=== PATIENT | male | born 1940 | race American Indian/Alaskan Native ===

== ENCOUNTER 2019-03-30 19:49 | Inpatient (IN) | payer MEDICARE ==
[2019-03-30 21:09] LABS: Basophils % (Auto) 0.1 % (0.0-1.8); Hematocrit 46.7 % (35.5-45.6); Hemoglobin 14.6 gm/dl (11.8-15.2); Lymphocytes # (Auto) 1.5 K/mm3 (1.2-5.4); Lymphocytes % (Auto) 9.2 % (13.4-35.0); Mean Corpuscular HGB Conc 31 % (32-34); Mean Corpuscular Volume 93 fl (84-94); Monocytes # (Auto) 0.8 K/mm3 (0.0-0.8); Monocytes % (Auto) 5.1 % (0.0-7.3); Platelet Count 203 K/mm3 (140-440); Red Blood Count 5.04 M/mm3 (3.65-5.03); Red Cell Distribution Width 15.4 % (13.2-15.2)
--- NOTE | 2019-03-30 21:23 | Emergency Department Report ---
HPI - General Chief Complaint: Hyperglycemia Time Seen by Provider: 03/30/19 21:06 - HPI HPI: Room 26 The patient is a 78-year-old male presenting with chief complaint altered mental status. He states the patient's last known well time was approximately 3 days ago. He states over the past 2-3 days the patient has been behaving more more lethargic and weak. This afternoon at 13:00, states the patient was profoundly weak and could not get out of bed. The patient denies pain of any type states he has been thirsty and urinating frequently lately. Patient had a history of prediabetes. Patient denies chest pain abdominal pain or shortness of breath Location: Mental state Duration: [See above] Quality: [See above] Severity: [See above] Modifying factors: [see above] Context: [see above] Mode of transportation: [not driving] ED Past Medical Hx - Past Medical History Previous Medical History?: Yes Hx CVA: Yes Hx Heart Attack/AMI: Yes (2 stents placed) Hx Diabetes: Yes (pre DM) Additional medical history: BPH - Surgical History Past Surgical History?: Yes Hx Coronary Stent: Yes (X2) - Family History Family history: no significant - Social History Smoking Status: Never Smoker Substance Use Type: None - Medications Home Medications: Home Medications Medication Instructions Recorded Confirmed Last Taken Type Cholecalciferol Vit D3 [Vitamin D3 1 dose PO DAILY 03/30/19 03/30/19 Unknown History 400 UNIT TAB] Cyanocobalamin (Vitamin B-12) 2,500 mcg PO DAILY 03/30/19 03/30/19 Unknown History [Vitamin B12] Mv-Mins/Folic Acid/Guarana/Caf 1 each PO DAILY 03/30/19 03/30/19 Unknown History [One Daily Tablet] ED Review of Systems ROS: Stated complaint: HYPERGLYCEMIA Other details as noted in HPI Constitutional: malaise Eyes: denies: eye pain ENT: denies: throat pain Respiratory: denies: shortness of breath Cardiovascular: denies: chest pain Endocrine: increased thirst, increased urine Gastrointestinal: denies: abdominal pain, nausea, vomiting Genitourinary: denies: dysuria Musculoskeletal: back pain Neurological: denies: headache Physical Exam - Physical Exam Vital Signs: Vital Signs 03/30/19 03/30/19 20:10 20:18 Temperature 99 F Pulse Rate 94 H 96 H Respiratory 12 16 Rate Blood Pressure 166/90 O2 Sat by Pulse 100 Oximetry Physical Exam: GENERAL: The patient is well-developed well-nourished male lying on stretcher appearing lethargic but responsive to questions. [] HEENT: Normocephalic. Atraumatic. Extraocular motions are intact. Patient has dry mucous membranes. NECK: Supple. Trachea midline CHEST/LUNGS: Clear to auscultation. There is no respiratory distress noted. HEART/CARDIOVASCULAR: Regular. There is no tachycardia. There is no gallop rub or murmur. ABDOMEN: Abdomen is soft, nontender. Patient has normal bowel sounds. There is no abdominal distention. SKIN: There is no rash. There is no edema. There is no diaphoresis. NEURO: The patient is lethargic in appearance but answers questions appropriately. The patient is cooperative. The patient has no focal neurologic deficits. The patient has normal speech. Cranial nerves II through XII gr ossly intact, no drift MUSCULOSKELETAL: There is no evidence of acute injury. ED Course Vital Signs 03/30/19 03/30/19 20:10 20:18 Temperature 99 F Pulse Rate 94 H 96 H Respiratory 12 16 Rate Blood Pressure 166/90 O2 Sat by Pulse 100 Oximetry ED Medical Decision Making - Lab Data Result diagrams: 03/30/19 20:43 03/30/19 20:43 Laboratory Tests 03/30/19 03/30/19 03/30/19 20:43 20:43 21:17 WBC 15.7 H RBC 5.04 H Hgb 14.6 Hct 46.7 H MCV 93 MCH 29 MCHC 31 L RDW 15.4 H Plt Count 203 Lymph % (Auto) 9.2 L Marion % (Auto) 5.1 Eos % (Auto) 0.0 Baso % (Auto) 0.1 Lymph # 1.5 Marion # 0.8 Eos # 0.0 Baso # 0.0 Seg Neutrophils % 85.6 H Seg Neutrophils # 13.4 H VBG pH 7.313 L Sodium 149 H Potassium 5.2 H Chloride 108.1 H Carbon Dioxide 24 Anion Gap 22 BUN 53 H Creatinine 1.8 H Estimated GFR 44 BUN/Creatinine Ratio 29 Glucose 774 H* Calcium 10.4 H Total Bilirubin 0.30 AST 13 ALT 9 Alkaline Phosphatase 137 H Total Protein 7.5 Albumin 4.0 Albumin/Globulin Ratio 1.1 - EKG Data -: EKG Interpreted by Me EKG shows normal: sinus rhythm Rate: normal - EKG Data When compared to previous EKG there are: previous EKG unavailable Interpretation: other (no ischemic changes seen) - Differential Diagnosis DKA, diabetes, dehydration, hyperglycemia, hypothyroidism Critical care attestation.: If time is entered above; I have spent that time in minutes in the direct care of this critically ill patient, excluding procedure time. ED Disposition Clinical Impression: DKA (diabetic ketoacidoses) Disposition: OP ADMIT IP TO THIS HOSP Is pt being admited?: Yes Does the pt Need Aspirin: Yes Condition: Serious
[2019-03-30 21:24] LABS: Calcium 10.4 mg/dL (8.4-10.2)
[2019-03-30] MEDS ORDERED: D50W (25GM) Syringe IV PRN ×2 (21:48→22:27)
[2019-03-30 22:01] LABS: Creatine Kinase MB 8.7 ng/mL (0.0-4.0)
[2019-03-30 22:12] LABS: Free T4 (Free Thyroxine) 1.23 ng/dL (0.76-1.46)
[2019-03-30 22:18] LABS: Chol/HDL Ratio 3.73 %
[2019-03-30] MEDS: HumuLIN R 100 UNITS in NACL 0.9% 99 ML IV SCH (22:21)
[2019-03-30] MEDS ORDERED: NACL 0.9% 1000 ML 2,000 ML IV ONE (22:26)
--- NOTE | 2019-03-30 22:28 | History and Physical Report ---
History of Present Illness Date of examination: 03/30/19 History of present illness: 78-year-old man with a history of coronary artery disease, diabetes, BPH, CVA with left arm weakness is brought to the emergency room by the daughter because his he's been lethargic and complains of thirst. He has not been on any medic ations for 4 years, daughter state that is helped improved once he started living with her. 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 Review of system is unobtainable PAST MEDICAL HISTORY:coronary artery disease, diabetes, BPH, CVA with left arm weakness PAST SURGICAL HISTORY: None SOCIAL HISTORY: Denies alcohol, drugs, tobacco FAMILY HISTORY: Hypertension Medications and Allergies Allergies Allergy/AdvReac Type Severity Reaction Status Date / Time No Known Allergies Allergy Verified 03/30/19 21:52 Home Medications Medication Instructions Recorded Confirmed Last Taken Type Cholecalciferol Vit D3 [Vitamin D3 1 dose PO DAILY 03/30/19 03/30/19 Unknown History 400 UNIT TAB] Cyanocobalamin (Vitamin B-12) 2,500 mcg PO DAILY 03/30/19 03/30/19 Unknown History [Vitamin B12] Mv-Mins/Folic Acid/Guarana/Caf 1 each PO DAILY 03/30/19 03/30/19 Unknown History [One Daily Tablet] Active Meds: Active Medications Dextrose (D50w (25gm) Syringe) 0 ml IV ONCE PRN PRN Reason: Hypoglycemia Enoxaparin Sodium (Lovenox) 30 mg SUB-Q QDAY SAVANNAH Insulin Human Regular 100 (units/ Sodium Chloride) 100 mls @ 7 mls/hr IV TITR SAVANNAH; Protocol Last Admin: 03/30/19 22:21 Dose: 8 units/hr, 8 mls/hr Documented by: Sodium Chloride (Nacl 0.9% 1000 Ml) 2,000 mls @ 999 mls/hr IV ONCE ONE Stop: 03/31/19 00:26 Sodium Chloride (Nacl 0.9% 1000 Ml) 1,000 mls @ 150 mls/hr IV DIRECT SAVANNAH Dextrose/Sodium Chloride (D5/0.45ns) 1,000 mls @ 150 mls/hr IV DIRECT SAVANNAH Exam - Physical Exam Narrative exam: General Apperance: The patient lying in bed, breathing comfortable HEENT: Normocephalic, atraumatic. Pupils equally round and reactive to light, EOMI, no sclericterus or JVD or thyromegaly or nodule. , no carotid bruit, mucous membranes moist, no exudate or erythema Heart: S1-S2, regular is rhythm Lungs: Clear to auscultation bilaterally, breathing comfortable Abdomen: Positive bowel sounds, soft, nontender, nondistended, no organomegaly Extremities: No edema cyanosis clubbing Skin: no rash, nodule, warm and dry Neuro:difficult to assess - Constitutional Vitals: Temp Pulse Resp BP Pulse Ox 99 F 92 H 13 178/87 100 03/30/19 20:18 03/30/19 21:45 03/30/19 21:45 03/30/19 21:45 03/30/19 21:45 Results - Labs CBC & Chem 7: 03/30/19 20:43 03/31/19 00:30 Labs: Abnormal lab results 03/30/19 03/30/19 03/30/19 Range/Units 20:43 20:43 21:17 WBC 15.7 H (4.5-11.0) K/mm3 RBC 5.04 H (3.65-5.03) M/mm3 Hct 46.7 H (35.5-45.6) % MCHC 31 L (32-34) % RDW 15.4 H (13.2-15.2) % Lymph % (Auto) 9.2 L (13.4-35.0) % Seg Neutrophils % 85.6 H (40.0-70.0) % Seg Neutrophils # 13.4 H (1.8-7.7) K/mm3 VBG pH 7.313 L (7.320-7.420) Sodium 149 H (137-145) mmol/L Potassium 5.2 H (3.6-5.0) mmol/L Chloride 108.1 H (98-107) mmol/L BUN 53 H (9-20) mg/dL Creatinine 1.8 H (0.8-1.5) mg/dL Glucose 774 H* (75-100) mg/dL Calcium 10.4 H (8.4-10.2) mg/dL Magnesium (1.7-2.3) mg/dL Alkaline Phosphatase 137 H (35-129) units/L CK-MB (CK-2) (0.0-4.0) ng/mL CK-MB (CK-2) Rel Index (0-4) Troponin T (0.00-0.029) ng/mL Triglycerides (2-149) mg/dL Cholesterol (50-199) mg/dL LDL Cholesterol Direct (50-130) mg/dL HDL Cholesterol (40-59) mg/dL 03/30/19 03/30/19 Range/Units 21:23 21:23 WBC (4.5-11.0) K/mm3 RBC (3.65-5.03) M/mm3 Hct (35.5-45.6) % MCHC (32-34) % RDW (13.2-15.2) % Lymph % (Auto) (13.4-35.0) % Seg Neutrophils % (40.0-70.0) % Seg Neutrophils # (1.8-7.7) K/mm3 VBG pH (7.320-7.420) Sodium (137-145) mmol/L Potassium (3.6-5.0) mmol/L Chloride (98-107) mmol/L BUN (9-20) mg/dL Creatinine (0.8-1.5) mg/dL Glucose (75-100) mg/dL Calcium (8.4-10.2) mg/dL Magnesium 2.90 H (1.7-2.3) mg/dL Alkaline Phosphatase (35-129) units/L CK-MB (CK-2) 8.7 H (0.0-4.0) ng/mL CK-MB (CK-2) Rel Index 7.1 H (0-4) Troponin T 0.087 H (0.00-0.029) ng/mL Triglycerides 200 H (2-149) mg/dL Cholesterol 254 H (50-199) mg/dL LDL Cholesterol Direct 168 H (50-130) mg/dL HDL Cholesterol 68 H (40-59) mg/dL - Imaging and Cardiology CT Scan - head: report reviewed Assessment and Plan Assessment HONK Acute Renal insufficiency Hypernatremia Abnormal cardiac enzymes Elevated blood pressure coronary artery disease BPH H/o CVA with left arm weakness Plan Admit to medicine Start IV fluid, insulin drip Monitor fingersticks, serial chemistry, HbA1c IV hydralazine for blood pressure control IV Rocephin for UTI, Monitor sodium level consult critical care, Check cardiac enzymes, echo DVT prophylaxis
--- NOTE | 2019-03-30 22:37 | Cat Scan Report ---
PROCEDURE: CT HEAD/BRAIN WO CON TECHNIQUE: Computerized tomography of the head was performed without contrast material. CT DOSE LENGTH PRODUCT: 1968.2 mGycm HISTORY: weakness COMPARISONS: None . FINDINGS: Brain: There is no evidence of intracranial hemorrhage. No parenchymal hemorrhage is seen. No mass lesions or mass effect is identified. No abnormal extra-axial fluid collections or masses are seen. Old lacunar infarcts visualized in the right thalamus and left basal ganglia. Old lacunar infarct als o visualized in the lanre. There is some decreased density seen in the periventricular white matter without mass effect. This i s fairly symmetric and does not exhibit any mass effect consistent with gliosis probably on the basis of microvascular disease or white matter changes of aging. Ventricles: The ventricles, sulcal pattern and fissures are prominent consistent with atrophy. Bone Windows: No evidence of fracture. Paranasal sinuses: Visualized portions are clear.. Mastoid air cells: Clear. IMPRESSION: There is evidence of moderate atrophy and gliosis as well as old lacunar infarcts as described above. No acute intracranial abnormalities are identified. This document is electronically signed by Benjamín Morales MD., March 30 2019 10:35:58 PM ET
[2019-03-30] MEDS ORDERED: NACL 0.9% 1000 ML 2,000 ML ONE (22:54)
[2019-03-30] MEDS ORDERED: D5/0.45NS 1,000 ML IV SCH (23:00)
[2019-03-30] MEDS ORDERED: SODIUM CHLORIDE FLUSH SYRINGE 10 ML IV PRN (23:46)
[2019-03-30] MEDS ORDERED: PERCOCET 5/325 PO PRN (23:46)
[2019-03-30] MEDS ORDERED: ZOFRAN IV PRN (23:46)
[2019-03-30] MEDS ORDERED: TYLENOL PO PRN (23:46)
[2019-03-30] MEDS ORDERED: APRESOLINE IV PRN (23:47)
[2019-03-31] LABS: Bilirubin,Urine NEG (Negative); Blood,Urine NEG (Negative); Color,Urine Straw (Yellow); Protein,Urine <15 mg/dL mg/dL (Negative); Urobilinogen,Urine < 2.0 mg/dL (<2.0)
[2019-03-31] MEDS: ROCEPHIN/NS 1 GM/50 ML 1 GM/50 ML BAG IV SCH ×2 (01:23→22:12)
[2019-03-31] MEDS: NACL 0.9% 1000 ML 1,000 ML IV SCH (01:34)
[2019-03-31 01:36] LABS: Calcium 10.4 mg/dL (8.4-10.2)
[2019-03-31 02:10] LABS: Creatine Kinase MB 14.7 ng/mL (0.0-4.0)
[2019-03-31 04:28] LABS: Calcium 10.7 mg/dL (8.4-10.2)
[2019-03-31 07:02] LABS: Calcium 10.1 mg/dL (8.4-10.2)
[2019-03-31 07:04] LABS: Creatine Kinase MB 21.8 ng/mL (0.0-4.0)
[2019-03-31] MEDS: D5W/0.45% NACL/KCL 20 MEQ 20 MEQ/1,000 ML BAG IV SCH ×2 (07:41→16:21)
[2019-03-31] MEDS ORDERED: LOVENOX SUB-Q SCH (10:00)
[2019-03-31] MEDS: SODIUM CHLORIDE FLUSH SYRINGE 10 ML IV SCH (10:00)
--- NOTE | 2019-03-31 11:08 | Consultation ---
History of Present Illness Consult date: 03/31/19 Requesting physician: KIRAN ROSAS History of present illness: PULMONARY/CCM CONSULT NOTE (Full dictation # [id number]) Please see dictated notes for full details Medications and Allergies Allergies Allergy/AdvReac Type Severity Reaction Status Date / Time No Known Allergies Allergy Verified 03/30/19 21:52 Home Medications Medication Instructions Recorded Confirmed Last Taken Type Cholecalciferol Vit D3 [Vitamin D3 1 dose PO DAILY 03/30/19 03/30/19 Unknown History 400 UNIT TAB] Cyanocobalamin (Vitamin B-12) 2,500 mcg PO DAILY 03/30/19 03/30/19 Unknown History [Vitamin B12] Mv-Mins/Folic Acid/Guarana/Caf 1 each PO DAILY 03/30/19 03/30/19 Unknown History [One Daily Tablet] Active Meds: Active Medications Acetaminophen (Tylenol) 650 mg PO Q4H PRN PRN Reason: Pain MILD(1-3)/Fever >100.5/MARTINEZ Dextrose (D50w (25gm) Syringe) 0 ml IV ONCE PRN PRN Reason: Hypoglycemia Last Admin: 03/31/19 08:35 Dose: 15 ml Documented by: Enoxaparin Sodium (Lovenox) 30 mg SUB-Q QDAY SAVANNAH Last Admin: 03/31/19 10:00 Dose: 30 mg Documented by: Hydralazine HCl (Apresoline) 5 mg IV Q6H PRN PRN Reason: Hypertension Insulin Human Regular 100 (units/ Sodium Chloride) 100 mls @ 7 mls/hr IV TITR SAVANNAH; Protocol Last Titration: 03/31/19 10:29 Dose: 1.5 units/hr, 1.5 mls/hr Documented by: Sodium Chloride (Nacl 0.9% 1000 Ml) 1,000 mls @ 150 mls/hr IV DIRECT SAVANNAH Last Admin: 03/31/19 01:34 Dose: 150 mls/hr Documented by: Ceftriaxone Sodium (Rocephin/Ns 1 Gm/50 Ml) 1 gm in 50 mls @ 100 mls/hr IV Q24HR@2200 SAVANNAH; Protocol Last Infusion: 03/31/19 01:53 Dose: Infused Documented by: Potassium Chloride/Dextrose/Sod Cl (D5w/0.45% Nacl/Kcl 20 Meq) 20 meq in 1,000 mls @ 150 mls/hr IV DIRECT SAVANNAH Last Admin: 03/31/19 07:41 Dose: 150 mls/hr Documented by: Ondansetron HCl (Zofran) 4 mg IV Q4H PRN PRN Reason: Nausea And Vomiting Sodium Chloride (Sodium Chloride Flush Syringe 10 Ml) 10 ml IV BID [facility] Last Admin: 03/31/19 10:00 Dose: 10 ml Documented by: Sodium Chloride (Sodium Chloride Flush Syringe 10 Ml) 10 ml IV PRN PRN PRN Reason: LINE FLUSH Physical Examination Vital signs: Vital Signs Pulse Resp 94 H 12 03/30/19 20:10 03/30/19 20:10 Results - Laboratory Findings CBC and BMP: 03/30/19 20:43 03/31/19 06:20 Abnormal lab findings: Abnormal Labs 03/30/19 03/30/19 03/30/19 20:43 20:43 21:17 WBC 15.7 H RBC 5.04 H Hct 46.7 H MCHC 31 L RDW 15.4 H Lymph % (Auto) 9.2 L Seg Neutrophils % 85.6 H Seg Neutrophils # 13.4 H VBG pH 7.313 L Sodium 149 H Potassium 5.2 H Chloride 108.1 H BUN 53 H Creatinine 1.8 H Glucose 774 H* POC Glucose Hemoglobin A1c Calcium 10.4 H Phosphorus Magnesium Alkaline Phosphatase 137 H Total Creatine Kinase CK-MB (CK-2) CK-MB (CK-2) Rel Index Troponin T Triglycerides Cholesterol LDL Cholesterol Direct HDL Cholesterol Urine WBC (Auto) 03/30/19 03/30/19 03/30/19 21:23 21:23 22:45 WBC RBC Hct MCHC RDW Lymph % (Auto) Seg Neutrophils % Seg Neutrophils # VBG pH Sodium Potassium Chloride BUN Creatinine Glucose POC Glucose Hemoglobin A1c 9.9 H Calcium Phosphorus Magnesium 2.90 H Alkaline Phosphatase Total Creatine Kinase CK-MB (CK-2) 8.7 H CK-MB (CK-2) Rel Index 7.1 H Troponin T 0.087 H Triglycerides 200 H Cholesterol 254 H LDL Cholesterol Direct 168 H HDL Cholesterol 68 H Urine WBC (Auto) 03/30/19 03/30/19 03/30/19 22:45 23:00 23:31 WBC RBC Hct MCHC RDW Lymph % (Auto) Seg Neutrophils % Seg Neutrophils # VBG pH Sodium Potassium Chloride BUN Creatinine Glucose POC Glucose > 500 H Hemoglobin A1c Calcium Phosphorus 4.60 H Magnesium 3.00 H Alkaline Phosphatase Total Creatine Kinase CK-MB (CK-2) CK-MB (CK-2) Rel Index Troponin T Triglycerides Cholesterol LDL Cholesterol Direct HDL Cholesterol Urine WBC (Auto) 36.0 H 03/31/19 03/31/19 03/31/19 00:15 00:30 00:34 WBC RBC Hct MCHC RDW Lymph % (Auto) Seg Neutrophils % Seg Neutrophils # VBG pH Sodium 155 H Potassium Chloride 113.2 H BUN 51 H Creatinine 1.6 H Glucose 528 H* POC Glucose 480 H Hemoglobin A1c Calcium 10.4 H Phosphorus Magnesium Alkaline Phosphatase Total Creatine Kinase 201 H CK-MB (CK-2) 14.7 H CK-MB (CK-2) Rel Index 7.3 H Troponin T 0.157 H* D Triglycerides Cholesterol LDL Cholesterol Direct HDL Cholesterol Urine WBC (Auto) 03/31/19 03/31/19 03/31/19 01:26 02:32 03:40 WBC RBC Hct MCHC RDW Lymph % (Auto) Seg Neutrophils % Seg Neutrophils # VBG pH Sodium 158 H Potassium Chloride 115.8 H BUN 49 H Creatinine 1.6 H Glucose 448 H POC Glucose 463 H 397 H Hemoglobin A1c Calcium 10.7 H Phosphorus Magnesium Alkaline Phosphatase Total Creatine Kinase CK-MB (CK-2) CK-MB (CK-2) Rel Index Troponin T Triglycerides Cholesterol LDL Cholesterol Direct HDL Cholesterol Urine WBC (Auto) 03/31/19 03/31/19 03/31/19 03:51 05:16 05:47 WBC RBC Hct MCHC RDW Lymph % (Auto) Seg Neutrophils % Seg Neutrophils # VBG pH Sodium Potassium Chloride BUN Creatinine Glucose POC Glucose 369 H 384 H 230 H Hemoglobin A1c Calcium Phosphorus Magnesium Alkaline Phosphatase Total Creatine Kinase CK-MB (CK-2) CK-MB (CK-2) Rel Index Troponin T Triglycerides Cholesterol LDL Cholesterol Direct HDL Cholesterol Urine WBC (Auto) 03/31/19 03/31/19 03/31/19 06:20 06:20 06:29 WBC RBC Hct MCHC RDW Lymph % (Auto) Seg Neutrophils % Seg Neutrophils # VBG pH Sodium 158 H Potassium 3.5 L Chloride 117.5 H BUN 47 H Creatinine 1.6 H Glucose 302 H POC Glucose 273 H Hemoglobin A1c Calcium Phosphorus Magnesium Alkaline Phosphatase Total Creatine Kinase 264 H CK-MB (CK-2) 21.8 H CK-MB (CK-2) Rel Index 8.2 H Troponin T 0.284 H* D Triglycerides Cholesterol LDL Cholesterol Direct HDL Cholesterol Urine WBC (Auto) 03/31/19 03/31/19 03/31/19 06:32 06:34 07:43 WBC RBC Hct MCHC RDW Lymph % (Auto) Seg Neutrophils % Seg Neutrophils # VBG pH Sodium Potassium Chloride BUN Creatinine Glucose POC Glucose 180 H 185 H 146 H Hemoglobin A1c Calcium Phosphorus Magnesium Alkaline Phosphatase Total Creatine Kinase CK-MB (CK-2) CK-MB (CK-2) Rel Index Troponin T Triglycerides Cholesterol LDL Cholesterol Direct HDL Cholesterol Urine WBC (Auto) 03/31/19 03/31/19 03/31/19 08:32 09:31 10:29 WBC RBC Hct MCHC RDW Lymph % (Auto) Seg Neutrophils % Seg Neutrophils # VBG pH Sodium Potassium Chloride BUN Creatinine Glucose POC Glucose 69 L 126 H 159 H Hemoglobin A1c Calcium Phosphorus Magnesium Alkaline Phosphatase Total Creatine Kinase CK-MB (CK-2) CK-MB (CK-2) Rel Index Troponin T Triglycerides Cholesterol LDL Cholesterol Direct HDL Cholesterol Urine WBC (Auto)
--- NOTE | 2019-03-31 13:45 | Consultation ---
History of Present Illness Consult date: 03/31/19 Requesting physician: DENISE DUNCAN Consult reason: elevated troponin History of present illness: The patient is a 78-year-old male with a past medical history of CVA, diabetes. He is confused with no family present on evaluation and thus HPI if obtained per the chart. Pt was brought to the emergency room by the daughter because his he's been lethargic and thirsty. He has not been on any medications for 4 years. Following arrival, pt diagnosed with HHNK, UTI, HANK. Pt also noted to have elevated troponins and thus cardiology has been consulted. Pt denies any prior history of CAD, AMI or HF although CAD is listed in medical history on the chart. Pt denies any chest pain, palpitations, n/v, diaphoresis, dizziness or syncope. Past History Past Medical History: diabetes, stroke Medications and Allergies Allergies Allergy/AdvReac Type Severity Reaction Status Date / Time No Known Allergies Allergy Verified 03/30/19 21:52 Home Medications Medication Instructions Recorded Confirmed Last Taken Type Cholecalciferol Vit D3 [Vitamin D3 1 dose PO DAILY 03/30/19 03/30/19 Unknown History 400 UNIT TAB] Cyanocobalamin (Vitamin B-12) 2,500 mcg PO DAILY 03/30/19 03/30/19 Unknown His tory [Vitamin B12] Mv-Mins/Folic Acid/Guarana/Caf 1 each PO DAILY 03/30/19 03/30/19 Unknown History [One Daily Tablet] Active Meds: Active Medications Acetaminophen (Tylenol) 650 mg PO Q4H PRN PRN Reason: Pain MILD(1-3)/Fever >100.5/MARTINEZ Atorvastatin Calcium (Lipitor) 40 mg PO QHS SAVANNAH Dextrose (D50w (25gm) Syringe) 0 ml IV ONCE PRN PRN Reason: Hypoglycemia Last Admin: 03/31/19 08:35 Dose: 15 ml Documented by: Enoxaparin Sodium (Lovenox) 30 mg SUB-Q QDAY SAVANNAH Last Admin: 03/31/19 10:00 Dose: 30 mg Documented by: Hydralazine HCl (Apresoline) 5 mg IV Q6H PRN PRN Reason: Hypertension Insulin Human Regular 100 (units/ Sodium Chloride) 100 mls @ 7 mls/hr IV TITR SAVANNAH; Protocol Last Titration: 03/31/19 13:38 Dose: 3 units/hr, 3 mls/hr Documented by: Sodium Chloride (Nacl 0.9% 1000 Ml) 1,000 mls @ 150 mls/hr IV DIRECT SAVANNAH Last Admin: 03/31/19 01:34 Dose: 150 mls/hr Documented by: Ceftriaxone Sodium (Rocephin/Ns 1 Gm/50 Ml) 1 gm in 50 mls @ 100 mls/hr IV Q24HR@2200 SAVANNAH; Protocol Last Infusion: 03/31/19 01:53 Dose: Infused Documented by: Potassium Chloride/Dextrose/Sod Cl (D5w/0.45% Nacl/Kcl 20 Meq) 20 meq in 1,000 mls @ 150 mls/hr IV DIRECT SAVANNAH Last Admin: 03/31/19 07:41 Dose: 150 mls/hr Documented by: Ondansetron HCl (Zofran) 4 mg IV Q4H PRN PRN Reason: Nausea And Vomiting Sodium Chloride (Sodium Chloride Flush Syringe 10 Ml) 10 ml IV BID [facility] Last Admin: 03/31/19 10:00 Dose: 10 ml Documented by: Sodium Chloride (Sodium Chloride Flush Syringe 10 Ml) 10 ml IV PRN PRN PRN Reason: LINE FLUSH Review of Systems ROS unobtainable: due to mental status Cardiovascular: no chest pain Physical Examination Vital Signs Pulse Resp 94 H 12 03/30/19 20:10 03/30/19 20:10 General appearance: other (awake, confused) HEENT: Positive: PERRL Neck: Positive: neck supple, trachea midline Cardiac: Positive: Reg Rate and Rhythm, S1/S2 Lungs: Positive: Decreased Breath Sounds Neuro: Positive: Other (awake, confused) Skin: Negative: Rash Musculoskeletal: No Pain Extremities: Absent: edema Results 03/30/19 20:43 03/31/19 14:30 Cardiac Enzymes 03/30/19 03/30/19 03/31/19 Range/Units 20:43 21:23 00:15 AST 13 (5-40) units/L CK-MB (CK-2) 8.7 H 14.7 H (0.0-4.0) ng/mL 03/31/19 Range/Units 06:20 AST (5-40) units/L CK-MB (CK-2) 21.8 H (0.0-4.0) ng/mL Lipids 03/30/19 Range/Units 21:23 Triglycerides 200 H (2-149) mg/dL Cholesterol 254 H (50-199) mg/dL HDL Cholesterol 68 H (40-59) mg/dL Cholesterol/HDL Ratio 3.73 % CBC 03/30/19 Range/Units 20:43 WBC 15.7 H (4.5-11.0) K/mm3 RBC 5.04 H (3.65-5.03) M/mm3 Hgb 14.6 (11.8-15.2) gm/dl Hct 46.7 H (35.5-45.6) % Plt Count 203 (140-440) K/mm3 Lymph # 1.5 (1.2-5.4) K/mm3 [place] # 0.8 (0.0-0.8) K/mm3 Eos # 0.0 (0.0-0.4) K/mm3 Baso # 0.0 (0.0-0.1) K/mm3 Comprehensive Metabolic Panel 03/30/19 03/31/19 03/31/19 Range/Units 20:43 00:30 03:40 Sodium 149 H 155 H 158 H (137-145) mmol/L Potassium 5.2 H 4.3 3.7 (3.6-5.0) mmol/L Chloride 108.1 H 113.2 H 115.8 H (98-107) mmol/L Carbon Dioxide 24 26 24 (22-30) mmol/L BUN 53 H 51 H 49 H (9-20) mg/dL Creatinine 1.8 H 1.6 H 1.6 H (0.8-1.5) mg/dL Glucose 774 H* 528 H* 448 H (75-100) mg/dL Calcium 10.4 H 10.4 H 10.7 H (8.4-10.2) mg/dL AST 13 (5-40) units/L ALT 9 (7-56) units/L Alkaline Phosphatase 137 H (35-129) units/L Total Protein 7.5 (6.3-8.2) g/dL Albumin 4.0 (3.9-5) g/dL 03/31/19 Range/Units 06:20 Sodium 158 H (137-145) mmol/L Potassium 3.5 L (3.6-5.0) mmol/L Chloride 117.5 H (98-107) mmol/L Carbon Dioxide 24 (22-30) mmol/L BUN 47 H (9-20) mg/dL Creatinine 1.6 H (0.8-1.5) mg/dL Glucose 302 H (75-100) mg/dL Calcium 10.1 (8.4-10.2) mg/dL AST (5-40) units/L ALT (7-56) units/L Alkaline Phosphatase (35-129) units/L Total Protein (6.3-8.2) g/dL Albumin (3.9-5) g/dL - Imaging and Cardiology Echo: pending EKG: report reviewed, image reviewed EKG interpretations - Telemetry EKG Rhythm: Sinus Rhythm - EKG Sinus rhythms and dysrhythmias: sinus rhythm Assessment and Plan CE elevation currently appears c/w NSTEMI type II. Pt denies cp, ECGs with no acute ischemic changes. Await echo. Initiate ASA and BB, cont statin. Repeat Aaron and if trending upwards, can initiate heparin gtt. F/u ECG in AM. The patient has been seen in conjunction with Dr. Franck Richmond who agrees with the assessment and plan of care. - Patient Problems (1) HHNC (hyperglycemic hyperosmolar nonketotic coma) Current Visit: Yes Status: Acute (2) Altered mental status Current Visit: Yes Status: Acute (3) NSTEMI (non-ST elevated myocardial infarction) Current Visit: Yes Status: Acute Plan to address problem: NSTEMI type II (4) HTN (hypertension) Current Visit: Yes Status: Chronic (5) HANK (acute kidney injury) Current Visit: Yes Status: Acute (6) UTI (urinary tract infection) Current Visit: Yes Status: Acute (7) Hypernatremia Current Visit: Yes Status: Acute (8) Hyperlipidemia Current Visit: Yes Status: Chronic (9) History of CVA (cerebrovascular accident) Current Visit: Yes Status: Chronic
[2019-03-31 15:38] LABS: BUN/Creatinine Ratio 34; Blood Urea Nitrogen 41 mg/dL (9-20); Calcium 9.9 mg/dL (8.4-10.2); Hemolysis Index 111
[2019-03-31] MEDS: HumuLIN R 100 UNITS in NACL 0.9% 99 ML IV SCH (16:22)
[2019-03-31 17:46] LABS: Hematocrit 42.7 % (35.5-45.6); Hemoglobin 14.2 gm/dl (11.8-15.2)
[2019-03-31 17:53] LABS: INR 1.07 (0.87-1.13)
[2019-03-31 17:54] LABS: Partial Thromboplastin Time 26.1 Sec. (24.2-36.6)
[2019-03-31] MEDS ORDERED: D50W (25GM) Syringe IV PRN (17:58)
[2019-03-31] MEDS ORDERED: HumuLIN R SUB-Q ONE (18:00)
--- NOTE | 2019-03-31 18:01 | Progress Note ---
Assessment and Plan Assessment and plan: 78-year-old man with a history of coronary artery disease, diabetes, BPH, CVA with left arm weakness is brought to the emergency room by the daughter because his he's been lethargic and complains of thirst. He has not been on any medications for 4 years, daughter state that is helped improved once he started living with her. 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 HONK Acute Kidney injury Acute cystitis NSTEMI Type 2- with rising troponin Hypernatremia HTN Hyperlipidemia Elevated blood pressure Coronary artery disease BPH H/o CVA with left arm weakness Plan Transitioned to Sliding scale and change in Monitor Sodium Echo reviewed- 50-55% Monitor fingersticks, serial chemistry, [id number]-[id number] IV hydralazine for blood pressure control IV Rocephin for UTI, Monitor sodium level Await Echo, cardiology following ok to transfer to the [place]/Telemetry pending cardiac work up Counselling DVT prophylaxis History Interval history: Patient seen and examined, remains a bit lethargic, could not answer accurately but appears to be saying this is the first time he is being told about diabetes, This is contrary to the familys assertion. Denies any chest pain Hospitalist Physical - Constitutional Vitals: Temp Pulse Resp BP Pulse Ox 97.5 F L 75 16 134/75 100 03/31/19 16:00 03/31/19 17:01 03/31/19 17:01 03/31/19 17:01 03/31/19 17:01 General appearance: Present: mild distress, disheveled, other (awake, confused) - EENT Eyes: Present: PERRL, EOM intact ENT: hearing intact, clear oral mucosa - Neck Neck: Present: supple, normal ROM - Respiratory Respiratory effort: normal Respiratory: bilateral: CTA - Cardiovascular Rhythm: regular Heart Sounds: Present: S1 & S2. Absent: systolic murmur - Extremities Extremities: no ischemia, pulses intact, pulses symmetrical, No edema, normal temperature Peripheral Pulses: within normal limits - Abdominal General gastrointestinal: soft, non-tender, non-distended, normal bowel sounds - Integumentary Integumentary: Present: clear, warm, dry - Psychiatric Psychiatric: memory intact, cooperative, depressed - Neurologic Neurologic: CNII-XII intact, moves all extremities - Allied Health Allied health notes reviewed: nursing Results - Labs CBC & Chem 7: 04/02/19 05:02 04/02/19 05:02 Labs: Laboratory Last Values WBC 15.7 K/mm3 (4.5-11.0) H 03/30/19 20:43 RBC 5.04 M/mm3 (3.65-5.03) H 03/30/19 20:43 Hgb 14.2 gm/dl (11.8-15.2) 03/31/19 17:28 Hct 42.7 % (35.5-45.6) 03/31/19 17:28 MCV 93 fl (84-94) 03/30/19 20:43 MCH 29 pg (28-32) 03/30/19 20:43 MCHC 31 % (32-34) L 03/30/19 20:43 RDW 15.4 % (13.2-15.2) H 03/30/19 20:43 Plt Count 185 K/mm3 (140-440) 03/31/19 17:28 Lymph % (Auto) 9.2 % (13.4-35.0) L 03/30/19 20:43 Bowman % (Auto) 5.1 % (0.0-7.3) 03/30/19 20:43 Eos % (Auto) 0.0 % (0.0-4.3) 03/30/19 20:43 Baso % (Auto) 0.1 % (0.0-1.8) 03/30/19 20:43 Lymph # 1.5 K/mm3 (1.2-5.4) 03/30/19 20:43 Bowman # 0.8 K/mm3 (0.0-0.8) 03/30/19 20:43 Eos # 0.0 K/mm3 (0.0-0.4) 03/30/19 20:43 Baso # 0.0 K/mm3 (0.0-0.1) 03/30/19 20:43 Seg Neutrophils % 85.6 % (40.0-70.0) H 03/30/19 20:43 Seg Neutrophils # 13.4 K/mm3 (1.8-7.7) H 03/30/19 20:43 PT 13.6 Sec. (12.2-14.9) 03/31/19 17:28 INR 1.07 (0.87-1.13) 03/31/19 17:28 APTT 26.1 Sec. (24.2-36.6) 03/31/19 17:28 VBG pH 7.313 (7.320-7.420) L 03/30/19 21:17 Sodium 156 mmol/L (137-145) H 03/31/19 14:30 Potassium 4.9 mmol/L (3.6-5.0) D 03/31/19 14:30 Chloride 122.9 mmol/L (98-107) H 03/31/19 14:30 Carbon Dioxide 19 mmol/L (22-30) L 03/31/19 14:30 19 mmol/L 03/31/19 14:30 BUN 41 mg/dL (9-20) H 03/31/19 14:30 1.2 mg/dL (0.8-1.5) 03/31/19 14:30 Estimated GFR > 60 ml/min 03/31/19 14:30 34 % 03/31/19 14:30 Glucose 177 mg/dL (75-100) H 03/31/19 14:30 POC Glucose 130 (70-105) H 03/31/19 17:30 9.9 % (4-6) H 03/30/19 22:45 Calcium 9.9 mg/dL (8.4-10.2) 03/31/19 14:30 Phosphorus 4.60 mg/dL (2.5-4.5) H 03/30/19 22:45 Magnesium 3.00 mg/dL (1.7-2.3) H 03/30/19 22:45 0.30 mg/dL (0.1-1.2) 03/30/19 20:43 AST 13 units/L (5-40) 03/30/19 20:43 ALT 9 units/L (7-56) 03/30/19 20:43 137 units/L (35-129) H 03/30/19 20:43 35.0 umol/L (25-60) 03/30/19 21:23 264 units/L (55-170) H 03/31/19 06:20 CK-MB (CK-2) 21.8 ng/mL (0.0-4.0) H 03/31/19 06:20 CK-MB (CK-2) Rel Index 8.2 (0-4) H 03/31/19 06:20 0.284 ng/mL (0.00-0.029) H* D 03/31/19 06:20 7.5 g/dL (6.3-8.2) 03/30/19 20:43 4.0 g/dL (3.9-5) 03/30/19 20:43 1.1 % 03/30/19 20:43 Triglycerides 200 mg/dL (2-149) H 03/30/19 21:23 Cholesterol 254 mg/dL (50-199) H 03/30/19 21:23 168 mg/dL (50-130) H 03/30/19 21:23 68 mg/dL (40-59) H 03/30/19 21:23 3.73 % 03/30/19 21:23 TSH 1.430 mlU/mL (0.270-4.200) 03/30/19 21:23 Free T4 1.23 ng/dL (0.76-1.46) 03/30/19 21:23 Straw (Yellow) 03/30/19 23:00 Slightly-cloudy (Clear) 03/30/19 23:00 5.0 (5.0-7.0) 03/30/19 23:00 Ur Specific Tyner 1.027 (1.003-1.030) 03/30/19 23:00 <15 mg/dl mg/dL (Negative) 03/30/19 23:00 >=500 mg/dL (Negative) 03/30/19 23:00 Tr mg/dL (Negative) 03/30/19 23:00 Neg (Negative) 03/30/19 23:00 Neg (Negative) 03/30/19 23:00 Neg (Negative) 03/30/19 23:00 < 2.0 mg/dL (<2.0) 03/30/19 23:00 Ur Leukocyte Esterase Mod (Negative) 03/30/19 23:00 36.0 /HPF (0.0-6.0) H 03/30/19 23:00 5.0 /HPF (0.0-6.0) 03/30/19 23:00 U Epithel Cells (Auto) 1.0 /HPF (0-13.0) 03/30/19 23:00 Ur Yeast w Hyphae Few /HPF 03/30/19 23:00 2+ /HPF 03/30/19 23:00 Active Medications - Current Medications Current Medications: Generic Name Dose Route Start Last Admin Trade Name Freq PRN Reason Stop Dose Admin Acetaminophen 650 mg 03/30/19 23:46 Tylenol PO Q4H PRN Pain MILD(1-3)/Fever >100.5/MARTINEZ Aspirin 325 mg 04/01/19 10:00 Aspirin PO QDAY [facility] Atorvastatin Calcium 40 mg 03/31/19 22:00 Lipitor PO QHS [facility] Cholecalciferol unit 04/01/19 10:00 Vitamin D3 PO DAILY SAVANNAH Dextrose 0 ml 03/30/19 22:27 03/31/19 08:35 D50w (25gm) Syringe IV 15 ml ONCE PRN Administration Hypoglycemia Dextrose 50 ml 03/31/19 17:58 D50w (25gm) Syringe IV PRN PRN Hypoglycemia Famotidine 20 mg 04/01/19 10:00 Pepcid IV QDAY [facility] Hydralazine HCl 5 mg 03/30/19 23:47 Apresoline IV Q6H PRN Hypertension Insulin Human Regular 100 100 mls @ 7 mls/hr 03/30/19 22:00 03/31/19 17:30 units/ Sodium Chloride IV 1.5 units/hr TITR SAVANNAH 1.5 mls/hr Titration Protocol 7 UNITS/HR Sodium Chloride 1,000 mls @ 150 mls/hr 03/30/19 23:00 03/31/19 01:34 Nacl 0.9% 1000 Ml IV 150 mls/hr DIRECT SAVANNAH Administration Ceftriaxone Sodium 1 gm in 50 mls @ 100 mls/hr 03/31/19 00:13 03/31/19 01:53 Rocephin/Ns 1 Gm/50 Ml IV Infused Q24HR@2200 SAVANNAH Infusion Protocol Potassium Chloride/Dextrose/Sod Cl 20 meq in 1,000 mls @ 150 mls/hr 03/31/19 07:00 03/31/19 16:21 D5w/0.45% Nacl/Kcl 20 Meq IV 150 mls/hr DIRECT SAVANNAH Administration Heparin Sodium/Sodium Chloride 25,000 unit in 500 mls @ 18 mls/hr 03/31/19 17 :00 Heparin/ 0.45% Nacl-25,000 Unit/500 Ml IV TITRATE [facility] Protocol 900 UNITS/HR Insulin Glargine 14 units 03/31/19 22:00 Lantus SUB-Q QHS [facility] Insulin Human Lispro 0 unit 03/31/19 22:00 Humalog SUB-Q ACHS [facility] Protocol Insulin Human Regular 12 units 03/31/19 18:00 Humulin R SUB-Q 03/31/19 18:01 ONCE ONE Metoprolol Tartrate 25 mg 03/31/19 22:00 Lopressor PO BID [facility] Miscellaneous Medication 2,500 mcg 04/01/19 10:00 Cyanocobalamin (Vitamin B-12) [Vitamin B12] PO DAILY [facility] Ondansetron HCl 4 mg 03/30/19 23:46 Zofran IV Q4H PRN Nausea And Vomiting Sodium Chloride 10 ml 03/31/19 10:00 03/31/19 10:00 Sodium Chloride Flush Syringe 10 Ml IV 10 ml BID SAVANNAH Administration Sodium Chloride 10 ml 03/30/19 23:46 Sodium Chloride Flush Syringe 10 Ml IV PRN PRN LINE FLUSH Nutrition/Malnutrition Assess - Dietary Evaluation Nutrition/Malnutrition Findings: Nutrition Notes Start: 03/31/19 14:43 Freq: Status: Active Protocol: Document 03/31/19 14:43 RM (Rec: 03/31/19 14:44 RM [id number]) Nutrition Notes 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 Pt asleep at time of visit. Nutrition Intervention Follow-Up By: 04/01/19 Additional Comments Follow for DM diet education - Attestation Statement I have reviewed and agreed w/ Malnutrition eval & tx plan: Yes
[2019-03-31] MEDS: HEPARIN/ 0.45% NACL-25,000 UNIT/500 ML 25,000 UNIT/500 ML BAG IV SCH ×2 (18:57→22:00)
[2019-03-31] MEDS ORDERED: NACL 0.9% 1000 ML 1,000 ML IV ONE (19:26)
[2019-03-31] MEDS ORDERED: HEPARIN 10,000 UNITS/10 ML IV ONE (22:03)
[2019-03-31] MEDS: LOPRESSOR PO SCH (22:11)
[2019-03-31] MEDS: LANTUS SUB-Q SCH (22:12)
[2019-03-31] MEDS: HEPARIN 10,000 UNITS/10 ML IV ONE (22:13)
[2019-04-01] MEDS: HEPARIN 10,000 UNITS/10 ML IV ONE (02:35)
[2019-04-01 05:20] LABS: Hematocrit 39.3 % (35.5-45.6); Hemoglobin 12.6 gm/dl (11.8-15.2); Mean Corpuscular HGB Conc 32 % (32-34); Mean Corpuscular Volume 90 fl (84-94); Platelet Count 147 K/mm3 (140-440); Red Blood Count 4.39 M/mm3 (3.65-5.03); Red Cell Distribution Width 14.5 % (13.2-15.2)
[2019-04-01 05:29] LABS: BUN/Creatinine Ratio 26; Blood Urea Nitrogen 29 mg/dL (9-20); Calcium 9.4 mg/dL (8.4-10.2); Hemolysis Index 16
--- NOTE | 2019-04-01 05:36 | Consultation ---
PULMONARY CRITICAL CARE CONSULTATION CONSULTING PHYSICIAN: Dr. Luz Hill REASON FOR CONSULTATION: Acute encephalopathy, diabetic ketoacidosis. CHIEF COMPLAINT AND HISTORY OF PRESENT ILLNESS: The patient is a 78-year-old -Gabonese male with past medical history according to his and daughter, who is in the room significant actually for a diagnosis of diabetes that they say got better on its own. He did lose about 100 pounds in weight. He has not been on any treatment of late. In the preceding week or so, they have noticed increased lethargy, falling asleep easier, polydipsia, polyuria, and just got very weak to where he was unable to get out of bed. Emergency medical services were called in and was brought into the Emergency Room. In the Emergency Room, the patient denied abdominal pain. He denied any nausea or vomiting. He also denied any chest pain to me. So after evaluation, he was diagnosed with DKA and started on IV insulin therapy. When I stopped by to see him in the room, he was feeling a little bit more better. He was more alert, still denied chest pain. Denied fevers or chills. Denied nausea, vomiting, overt aspiration. Now with regards to tobacco use/abuse history, he describes himself as does the family as a never smoker, it really is much of the history of presentation as I have. He denies any history of coronary artery disease. MEDICAL HISTORY: Apparently, he has a history of coronary artery disease according to the record, also history of cerebrovascular accident, history of diabetes, and history of benign prostatic hyperplasia. PAST SURGICAL HISTORY: Coronary artery stenting x 2. MEDICATIONS: He was on by the time I stopped by to see him were reviewed, pertinent medications include the following: Tylenol 650 mg p.o. q. 4 hours p.r.n. mild pain or fevers, aspirin 325 mg p.o. daily, Lipitor 40 mg p.o. at bedtime, Rocephin 1 gram IV daily, Lovenox 30 mg subcutaneous daily, hydralazine 5 mg IV q. 6 hours p.r.n. elevated blood pressures, insulin drip was going at about 4 units per hour, Lopressor 25 mg p.o. b.i.d., Zofran 4 mg IV q. 4 hours p.r.n. nausea and vomiting, D5 half NS with 20 mEq KCl per liter was going at 150 mL per hour. ALLERGIES: No known drug allergies. DIET: Thin gentleman, family denies significant weight loss in the preceding few weeks to months. FAMILY AND SOCIAL HISTORY: Lives in the community. He is . Daughter is in the room. Denied alcohol, tobacco, or illicit drug use or abuse. Family history, otherwise noncontributory. REVIEW OF SYSTEMS: No overt loss of consciousness. No new onset seizures. No new onset focal weakness. Denies gross hematochezia or melena. Denies gross hematuria or dysuria. He had polydipsia. He had polyuria. He denies heat or cold intolerance. Denies any new lumps in his body. Denies any new leg pain or swelling either unilaterally or bilaterally or any suggestion of deep venous thrombosis. Denies unexplained intense elation or sadness as may be consistent with depression or jareth. Complete 13-system review of systems obtained. Pertinent positives and/or negatives as in body of history above, otherwise noncontributory. PHYSICAL EXAMINATION: VITAL SIGNS: On examination at presentation, he had a low grade fever 99.0 degrees Fahrenheit, pulse of 94, respiratory rate of 16, blood pressure 166/90, O2 sats 100%, inspired oxygen concentration at the time was not recorded. When I stopped by to see him, O2 sats were 99% on room air. GENERAL: Elderly looking -Gabonese male. Normocephalic, atraumatic, talking to me in full sentences without significantly increased respiratory distress. HEAD, EYES, EARS, NOSE AND THROAT: He is anicteric. No conjunctival erythema. Oropharynx is dry. Mild creamy exudate over his tongue. Mallampati #2 oropharynx. No gross jugular venous distention, no thyromegaly. Grossly, no palpable lymph nodes in the supraclavicular or submandibular lymph node chains. LUNGS: Auscultation of both lung montelongo unremarkable. Lungs are clear bilaterally. HEART: Heart sounds 1 and 2 are heard. They were regular in rate and rhythm at time of my evaluation without overt rubs or murmurs. ABDOMEN: Soft, full, bowel sounds are positive, nontender. No palpable hepatosplenomegaly. EXTREMITIES: Without overt digital clubbing, no cyanosis, no pedal edema. Pedal pulses strong bilaterally, 2+. NEUROLOGIC: Pupils equal, round, about 3 mm, reactive to light. Extraocular muscle movements were intact. He had spontaneous movements to all extremities. Power was equal bilaterally to 4-5/5. The skin was of poor turgor without overt cellulitis or rash. His mood was normal, affect was appropriate. LABORATORY DATA: From my review are as follows: Admission white cell count 15,700, hemoglobin 14.6, hematocrit 46.7, platelet count 203. No band forms. Venous blood gas showed a pH of 7.31 at presentation. Serum sodium was 149, potassium 5.2, chloride 108, bicarbonate 24, BUN was 53, creatinine was 1.8, anion gap was 22, glucose 774. Hemoglobin A1c elevated at 9.9, phosphorus 4.6, magnesium 3.0. Ammonia within normal limits. Troponin is elevated. Cholesterol is elevated at 254. Urinalysis shows moderate leukocyte esterase with 6 white cells per high power field. No cultures from my review. A CT scan of his head was done. I have reviewed the radiologist's interpretation. An echocardiogram was also done, the result is pending. CT brain shows moderate atrophy and gliosis old lacunar infarcts, no acute intracranial process. ASSESSMENT AND PLAN: 1. Diabetic ketoacidosis. 2. Acute toxic metabolic encephalopathy. 3. Non-ST elevation myocardial infarction. No ST elevations are seen on the 12-lead EKG. 4. History of cerebrovascular accident without overt residual deficits. 5. Coronary artery disease by history. 6. Hypertension. 7. Adult failure to thrive. 8. Moderate protein calorie malnutrition. 9. Leukocytosis. 10. Hypernatremia. 11. Acute kidney injury. 12. Hyperkalemia. 13. Hyperlipidemia. 14. Urinary tract infection. PLAN: We will continue with the DKA protocol. Hopefully, we can transition him to oral intake pretty soon. He is asking to feed. I will get a cardiology consultation to rule out significant coronary event, especially in light of his coronary artery disease history. Aspiration precautions will be maintained. We will continue empiric Rocephin monotherapy for presumed urinary tract infection. Cultures will be followed. Anti-infectives will be deescalated based on results of clinical and microbiologic data. I will get a lactic acid level, plus or minus a CRP level to greaser helper clinical decision making. Nephrology evaluation will be at the behest of the attending physician. We will continue volume resuscitation for the intravascular volume depletion complement. Free water flushes will be ordered for the hypernatremia. As soon as he is no longer n.p.o., he will be placed on GI prophylaxis. He is appropriately on DVT prophylaxis. Flu and pneumonia vaccination will be addressed per protocol. Thank you very much for the consult. We will follow along and make further recommendations as picture progresses/becomes clearer. For now, he is critically ill on life-sustaining interventions including IV insulin therapy at further risk of deterioration including the risk of . At this time, we spent about 35-40 minutes of critical care time without overlap and excluding any procedural time that may be necessary. The care plan has been explained to the and daughter and patient at length. JOB# [id number] BRIONNA/JAYASHREE WATSON
[2019-04-01] MEDS: NACL 0.9% 1000 ML 1,000 ML IV SCH (07:23)
[2019-04-01] MEDS ORDERED: NON-FORMULARY (Cyanocobalamin (Vitamin B-12) [Vitamin B12] 2,500 MCG) PO SCH (10:00)
--- NOTE | 2019-04-01 10:39 | Progress Note ---
Assessment and Plan Echo reviewed - EF 50-55%, mild to mod LVH, abnormal diastolic function, significant aortic valve sclerosis without stenosis. Aaron trending upwards. Pt denies cp, ECGs with no acute ischemic changes. Suspect NSTEMI type II, however, will continue heparin gtt for 48Hr. Cont ASA, statin, BB. The patient has been seen in conjunction with Dr. Dillard who agrees with the assessment and plan of care. - Patient Problems (1) HHNC (hyperglycemic hyperosmolar nonketotic coma) Current Visit: Yes Status: Acute (2) Altered mental status Current Visit: Yes Status: Acute (3) NSTEMI (non-ST elevated myocardial infarction) Current Visit: Yes Status: Acute (4) HTN (hypertension) Current Visit: Yes Status: Chronic (5) HANK (acute kidney injury) Current Visit: Yes Status: Acute (6) UTI (urinary tract infection) Current Visit: Yes Status: Acute (7) Hypernatremia Current Visit: Yes Status: Acute (8) Hyperlipidemia Current Visit: Yes Status: Chronic (9) History of CVA (cerebrovascular accident) Current Visit: Yes Status: Chronic Subjective Date of service: 04/01/19 Principal diagnosis: HHNK Interval history: pt resting in bed, appears much more alert today, no current complaints. on heparin gtt. Objective Last Vital Signs Temp 99.2 F 04/01/19 00:14 Pulse 69 04/01/19 10:31 Resp 14 04/01/19 10:31 BP 152/78 04/01/19 10:31 Pulse Ox 100 04/01/19 10:31 - Physical Examination General: No Apparent Distress HEENT: Positive: PERRL Neck: Positive: neck supple, trachea midline Cardiac: Positive: Reg Rate and Rhythm, S1/S2 Lungs: Positive: Decreased Breath Sounds Neuro: Positive: Grossly Intact Skin: Negative: Rash Musculoskeletal: No Pain Extremities: Absent: edema - Labs and Meds Coagulation 03/31/19 Range/Units 17:28 PT 13.6 (12.2-14.9) Sec. INR 1.07 (0.87-1.13) APTT 26.1 (24.2-36.6) Sec. CBC 03/31/19 04/01/19 Range/Units 17:28 04:35 WBC 14.0 H (4.5-11.0) K/mm3 RBC 4.39 (3.65-5.03) M/mm3 Hgb 14.2 12.6 (11.8-15.2) gm/dl Hct 42.7 39.3 (35.5-45.6) % Plt Count 185 147 (140-440) K/mm3 Comprehensive Metabolic Panel 03/31/19 04/01/19 Range/Units 14:30 04:35 Sodium 156 H 157 H (137-145) mmol/L Potassium 4.9 D 4.0 (3.6-5.0) mmol/L Chloride 122.9 H 123.7 H (98-107) mmol/L Carbon Dioxide 19 L 22 (22-30) mmol/L BUN 41 H 29 H (9-20) mg/dL Creatinine 1.2 1.1 (0.8-1.5) mg/dL Glucose 177 H 125 H (75-100) mg/dL Calcium 9.9 9.4 (8.4-10.2) mg/dL - Imaging and Cardiology EKG: report reviewed, image reviewed Echo: pending - EKG Sinus rhythms and dysrhythmias: sinus rhythm
[2019-04-01] MEDS: VITAMIN B-12 PO SCH (11:17)
[2019-04-01] MEDS: PEPCID PO SCH (11:17)
[2019-04-01] MEDS: ASPIRIN PO SCH (11:18)
[2019-04-01] MEDS: LOPRESSOR PO SCH ×2 (11:18→23:45)
[2019-04-01] MEDS: VITAMIN D3 PO SCH (11:19)
[2019-04-01] MEDS: HumaLOG SUB-Q SCH ×4 (11:19→23:59)
[2019-04-01] MEDS: SODIUM CHLORIDE FLUSH SYRINGE 10 ML IV SCH ×3 (11:19→23:50)
--- NOTE | 2019-04-01 15:22 | Progress Note ---
Assessment and Plan Assessment and plan: 78-year-old man with a history of coronary artery disease, diabetes, BPH, CVA with left arm weakness is brought to the emergency room by the daughter because his he's been lethargic and complains of thirst. He has not been on any medications for 4 years, daughter state that is helped improved once he started living with her. 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 HONK Acute Kidney injury Acute cystitis NSTEMI Type 2- with rising troponin Hypernatremia HTN Hyperlipidemia Elevated blood pressure Coronary artery disease BPH H/o CVA with left arm weakness Plan Discussed with family, Patient has not been taking medication and claims it is because his doctor took him off. He is clinically improved today Monitor Sodium Echo reviewed- 50-55% Monitor fingersticks, serial chemistry, [id number] IV hydralazine for blood pressure control IV Rocephin for UTI, Monitor sodium level Await Echo, cardiology following Counselling DVT prophylaxis History Interval history: Patient seen and examined, remains a bit lethargic, could not answer accurately but appears to be saying this is the first time he is being told about diabetes, This is contrary to the family assertion. Denies any chest pain Hospitalist Physical - Physical exam Narrative exam: General appearance: Present: mild distress, disheveled, other (awake, confused) - EENT Eyes: Present: PERRL, EOM intact ENT: hearing intact, clear oral mucosa - Neck Neck: Present: supple, normal ROM - Respiratory Respiratory effort: normal Respiratory: bilateral: CTA - Cardiovascular Rhythm: regular Heart Sounds: Present: S1 & S2. Absent: systolic murmur - Extremities Extremities: no ischemia, pulses intact, pulses symmetrical, No edema, normal temperature Peripheral Pulses: within normal limits - Abdominal General gastrointestinal: soft, non-tender, non-distended, normal bowel sounds - Integumentary Integumentary: Present: clear, warm, dry - Psychiatric Psychiatric: memory intact, cooperative, depressed - Neurologic Neurologic: CNII-XII intact, moves all extremities - Allied Health Allied health notes reviewed: nursing - Constitutional Vitals: Temp Pulse Resp BP Pulse Ox 98.0 F 59 L 20 163/82 97 04/01/19 14:51 04/01/19 14:51 04/01/19 14:51 04/01/19 14:51 04/01/19 14:51 General appearance: Present: mild distress, disheveled, other (awake, confused) Results - Labs CBC & Chem 7: 04/02/19 05:02 04/02/19 05:02 Labs: Laboratory Last Values WBC 14.0 K/mm3 (4.5-11.0) H 04/01/19 04:35 RBC 4.39 M/mm3 (3.65-5.03) 04/01/19 04:35 Hgb 12.6 gm/dl (11.8-15.2) 04/01/19 04:35 Hct 39.3 % (35.5-45.6) 04/01/19 04:35 MCV 90 fl (84-94) 04/01/19 04:35 MCH 29 pg (28-32) 04/01/19 04:35 MCHC 32 % (32-34) 04/01/19 04:35 RDW 14.5 % (13.2-15.2) 04/01/19 04:35 Plt Count 147 K/mm3 (140-440) 04/01/19 04:35 Lymph % (Auto) 9.2 % (13.4-35.0) L 03/30/19 20:43 Moca % (Auto) 5.1 % (0.0-7.3) 03/30/19 20:43 Eos % (Auto) 0.0 % (0.0-4.3) 03/30/19 20:43 Baso % (Auto) 0.1 % (0.0-1.8) 03/30/19 20:43 Lymph # 1.5 K/mm3 (1.2-5.4) 03/30/19 20:43 Moca # 0.8 K/mm3 (0.0-0.8) 03/30/19 20:43 Eos # 0.0 K/mm3 (0.0-0.4) 03/30/19 20:43 Baso # 0.0 K/mm3 (0.0-0.1) 03/30/19 20:43 Seg Neutrophils % 85.6 % (40.0-70.0) H 03/30/19 20:43 Seg Neutrophils # 13.4 K/mm3 (1.8-7.7) H 03/30/19 20:43 PT 13.6 Sec. (12.2-14.9) 03/31/19 17:28 INR 1.07 (0.87-1.13) 03/31/19 17:28 APTT 26.1 Sec. (24.2-36.6) 03/31/19 17:28 Heparin Anti-Xa Level 0.54 U.I./ml (0.3-0.7) 04/01/19 07:28 VBG pH 7.313 (7.320-7.420) L 03/30/19 21:17 Sodium 157 mmol/L (137-145) H 04/01/19 04:35 Potassium 4.0 mmol/L (3.6-5.0) 04/01/19 04:35 Chloride 123.7 mmol/L (98-107) H 04/01/19 04:35 Carbon Dioxide 22 mmol/L (22-30) 04/01/19 04:35 15 mmol/L 04/01/19 04:35 BUN 29 mg/dL (9-20) H 04/01/19 04:35 1.1 mg/dL (0.8-1.5) 04/01/19 04:35 Estimated GFR > 60 ml/min 04/01/19 04:35 26 % 04/01/19 04:35 Glucose 125 mg/dL (75-100) H 04/01/19 04:35 POC Glucose 161 (70-105) H 04/01/19 08:21 9.9 % (4-6) H 03/30/19 22:45 Lactic Acid 1.80 mmol/L (0.7-2.0) 04/01/19 04:35 Calcium 9.4 mg/dL (8.4-10.2) 04/01/19 04:35 Phosphorus 4.60 mg/dL (2.5-4.5) H 03/30/19 22:45 Magnesium 3.00 mg/dL (1.7-2.3) H 03/30/19 22:45 0.30 mg/dL (0.1-1.2) 03/30/19 20:43 AST 13 units/L (5-40) 03/30/19 20:43 ALT 9 units/L (7-56) 03/30/19 20:43 137 units/L (35-129) H 03/30/19 20:43 35.0 umol/L (25-60) 03/30/19 21:23 264 units/L (55-170) H 03/31/19 06:20 CK-MB (CK-2) 21.8 ng/mL (0.0-4.0) H 03/31/19 06:20 CK-MB (CK-2) Rel Index 8.2 (0-4) H 03/31/19 06:20 0.396 ng/mL (0.00-0.029) H* D 04/01/19 08:56 0.10 mg/dL (0.00-1.30) 03/31/19 17:28 7.5 g/dL (6.3-8.2) 03/30/19 20:43 4.0 g/dL (3.9-5) 03/30/19 20:43 1.1 % 03/30/19 20:43 Triglycerides 200 mg/dL (2-149) H 03/30/19 21:23 Cholesterol 254 mg/dL (50-199) H 03/30/19 21:23 168 mg/dL (50-130) H 03/30/19 21:23 68 mg/dL (40-59) H 03/30/19 21:23 3.73 % 03/30/19 21:23 TSH 1.430 mlU/mL (0.270-4.200) 03/30/19 21:23 Free T4 1.23 ng/dL (0.76-1.46) 03/30/19 21:23 Straw (Yellow) 03/30/19 23:00 Slightly-cloudy (Clear) 03/30/19 23:00 5.0 (5.0-7.0) 03/30/19 23:00 Ur Specific [place] 1.027 (1.003-1.030) 03/30/19 23:00 <15 mg/dl mg/dL (Negative) 03/30/19 23:00 >=500 mg/dL (Negative) 03/30/19 23:00 Tr mg/dL (Negative) 03/30/19 23:00 Neg (Negative) 03/30/19 23:00 Neg (Negative) 03/30/19 23:00 Neg (Negative) 03/30/19 23:00 < 2.0 mg/dL (<2.0) 03/30/19 23:00 Ur Leukocyte Esterase Mod (Negative) 03/30/19 23:00 36.0 /HPF (0.0-6.0) H 03/30/19 23:00 5.0 /HPF (0.0-6.0) 03/30/19 23:00 U Epithel Cells (Auto) 1.0 /HPF (0-13.0) 03/30/19 23:00 Ur Yeast w Hyphae Few /HPF 03/30/19 23:00 2+ /HPF 03/30/19 23:00 Active Medications - Current Medications Current Medications: Generic Name Dose Route Start Last Admin Trade Name Freq PRN Reason Stop Dose Admin Acetaminophen 650 mg 03/30/19 23:46 Tylenol PO Q4H PRN Pain MILD(1-3)/Fever >100.5/MARTINEZ Aspirin 325 mg 04/01/19 10:00 04/01/19 11:18 Aspirin PO 325 mg QDAY SAVANNAH Administration Atorvastatin Calcium 40 mg 03/31/19 22:00 03/31/19 22:10 Lipitor PO 40 mg QHS SAVANNAH Administration Cholecalciferol 400 unit 04/01/19 10:00 04/01/19 11:19 Vitamin D3 PO 400 unit DAILY SAVANNAH Administration Cyanocobalamin 2,500 mcg 04/01/19 10:00 04/01/19 11:17 Vitamin B-12 PO 2,500 mcg QDAY SAVANNAH Administration Dextrose 0 ml 03/30/19 22:27 03/31/19 08:35 D50w (25gm) Syringe IV 15 ml ONCE PRN Administration Hypoglycemia Famotidine 20 mg 04/01/19 10:00 04/01/19 11:17 Pepcid PO 20 mg DAILY SAVANNAH Administration Hydralazine HCl 5 mg 03/30/19 23:47 Apresoline IV Q6H PRN Hypertension Ceftriaxone Sodium 1 gm in 50 mls @ 100 mls/hr 03/31/19 00:13 03/31/19 22:12 Rocephin/Ns 1 Gm/50 Ml IV 100 mls/hr Q24HR@2200 SAVANNAH Administration Protocol Heparin Sodium/Sodium Chloride 25,000 unit in 500 mls @ 18 mls/hr 03/31/19 17:00 03/31/19 22:00 Heparin/ 0.45% Nacl-25,000 Unit/500 Ml IV 900 units/hr TITRATE SAVANNAH 18 mls/hr Administration Protocol 900 UNITS/HR Insulin Glargine 14 units 03/31/19 22:00 03/31/19 22:12 Lantus SUB-Q 14 units QHS SAVANNAH Administration Insulin Human Lispro 0 unit 03/31/19 22:00 04/01/19 11:19 Humalog SUB-Q Not Given [facility] Protocol Metoprolol Tartrate 25 mg 03/31/19 22:00 04/01/19 11:18 Lopressor PO 25 mg BID SAVANNAH Administration Ondansetron HCl 4 mg 03/30/19 23:46 Zofran IV Q4H PRN Nausea And Vomiting Sodium Chloride 10 ml 03/31/19 10:00 04/01/19 11:19 Sodium Chloride Flush Syringe 10 Ml IV 10 ml BID SAVANNAH Administration Sodium Chloride 10 ml 03/30/19 23:46 Sodium Chloride Flush Syringe 10 Ml IV PRN PRN LINE FLUSH Nutrition/Malnutrition Assess - Dietary Evaluation Nutrition/Malnutrition Findings: Nutrition Notes Start: 03/31/19 14:43 Freq: Status: Active Protocol: Document 04/01/19 14:57 RM (Rec: 04/01/19 14:58 RM [email or web address]) Nutrition Notes Initial or Follow up Brief Note Current Diagnosis Acute Kidney Injury,Coronary Artery Disease,Diabetes Other Pertinent Diagnosis Hx CVA Labs/Tests A1c 9.9 Subjective/Other Information Pt confused at time of visit. Nutrition Intervention Follow-Up By: 04/04/19 Additional Comments Follow for DM diet education - Attestation Statement I have reviewed and agreed w/ Malnutrition eval & tx plan: Yes
--- NOTE | 2019-04-01 16:02 | Progress Note ---
Assessment and Plan Diabetic ketoacidosis. Acute toxic metabolic encephalopathy. Non-ST elevation myocardial infarction History of cerebrovascular accident without overt residual deficits. Coronary artery disease by history. Hypertension. Adult failure to thrive. Moderate protein calorie malnutrition. Leukocytosis. Hypernatremia. Acute kidney injury. Hyperkalemia. Hyperlipidemia. Urinary tract infection. - Continue accuchecks with glycemic control per SSI for target blood glucose <180mg/dL - continue VTE prophylaxis - continue chronic home medications - PT/OT, increase activity - Blood presure control and management - Replete electrolytes as necessary - Diabetic education - Avoid nephrotoxins and adjust all medications for CrCL/GFR - Avoid delirium, maintenance of sleep- wake cycle - Out of bed to chair daily - Discharge planning ongoing .... ok to transfer to medical floor Subjective Date of service: 04/01/19 Principal diagnosis: DKA; Ac. encephalopathy; NSTEMI; Acute kidney injury; UTI; H/O CVA; CAD;HTN Interval history: Patient is seen today for: DKA; Acute toxic metabolic encephalopathy; NSTEMI; H/O CVA; CAD; HTN; Adult failure to thrive; Moderate protein calorie malnutrition; Acute kidney injury; UTI Seen and examined at bedside; 24hour events reviewed; nursing and respiratory care staff consulted; no adverse overnight events reported to me; resting peacefully in bed; denies acute chest pains or palpitations; transitioned off IV insulin therapy; No N/V/F/C Objective Vital Signs - 12hr 04/01/19 04/01/19 04/01/19 04:11 04:21 04:31 Temperature Pulse Rate 59 L 61 59 L Pulse Rate [ From Monitor] Respiratory 11 L 16 14 Rate Blood Pressure 142/79 142/79 142/62 O2 Sat by Pulse 100 100 99 Oximetry 04/01/19 04/01/19 04/01/19 04:41 04:51 05:01 Temperature Pulse Rate 63 62 62 Pulse Rate [ From Monitor] Respiratory 11 L 10 L 12 Rate Blood Pressure 142/62 142/62 142/62 O2 Sat by Pulse 100 99 100 Oximetry 04/01/19 04/01/19 04/01/19 05:11 05:21 05:31 Temperature Pulse Rate 65 61 60 Pulse Rate [ From Monitor] Respiratory 13 14 15 Rate Blood Pressure 142/62 142/62 142/62 O2 Sat by Pulse 100 100 Oximetry 04/01/19 04/01/19 04/01/19 05:41 05:50 06:01 Temperature Pulse Rate 63 70 64 Pulse Rate [ From Monitor] Respiratory 15 10 L 10 L Rate Blood Pressure 142/62 142/62 166/75 O2 Sat by Pulse 100 100 100 Oximetry 04/01/19 04/01/19 04/01/19 06:11 06:21 06:31 Temperature Pulse Rate 68 65 65 Pulse Rate [ From Monitor] Respiratory 13 12 13 Rate Blood Pressure 166/75 166/75 166/75 O2 Sat by Pulse 100 100 100 Oximetry 04/01/19 04/01/19 04/01/19 06:41 06:51 07:01 Temperature Pulse Rate 65 69 70 Pulse Rate [ From Monitor] Respiratory 13 13 13 Rate Blood Pressure 148/72 136/74 136/74 O2 Sat by Pulse 100 100 100 Oximetry 04/01/19 04/01/19 04/01/19 07:11 07:21 07:31 Temperature Pulse Rate 69 68 69 Pulse Rate [ From Monitor] Respiratory 12 9 L 10 L Rate Blood Pressure 136/74 122/74 122/74 O2 Sat by Pulse 100 100 99 Oximetry 04/01/19 04/01/19 04/01/19 07:41 07:51 07:53 Temperature Pulse Rate 68 69 Pulse Rate [ From Monitor] Respiratory 10 L 11 L Rate Blood Pressure 126/75 126/75 O2 Sat by Pulse 100 99 100 Oximetry 04/01/19 04/01/19 04/01/19 08:00 08:01 08:11 Temperature 97.4 F L Pulse Rate 70 73 Pulse Rate [ 70 From Monitor] Respiratory 18 11 L 11 L Rate Blood Pressure 164/74 164/74 O2 Sat by Pulse 100 98 Oximetry 04/01/19 04/01/19 04/01/19 08:21 08:31 08:41 Temperature Pulse Rate 70 71 70 Pulse Rate [ From Monitor] Respiratory 10 L 12 14 Rate Blood Pressure 164/74 123/69 123/69 O2 Sat by Pulse 100 100 100 Oximetry 04/01/19 04/01/19 04/01/19 08:51 09:01 09:11 Temperature Pulse Rate 69 74 72 Pulse Rate [ From Monitor] Respiratory 11 L 14 12 Rate Blood Pressure 123/69 123/69 169/81 O2 Sat by Pulse 100 99 98 Oximetry 04/01/19 04/01/1904/01/19 09:20 09:31 09:41 Temperature Pulse Rate 68 76 76 Pulse Rate [ From Monitor] Respiratory 15 12 9 L Rate Blood Pressure 126/75 163/83 163/83 O2 Sat by Pulse 99 99 100 Oximetry 04/01/19 04/01/19 04/01/19 09:51 10:01 10:11 Temperature Pulse Rate 75 74 73 Pulse Rate [ From Monitor] Respiratory 12 12 13 Rate Blood Pressure 163/83 164/96 164/96 O2 Sat by Pulse 100 100 100 Oximetry 04/01/19 04/01/19 04/01/19 10:21 10:31 10:41 Temperature Pulse Rate 72 69 69 Pulse Rate [ From Monitor] Respiratory 14 14 14 Rate Blood Pressure 164/96 152/78 152/78 O2 Sat by Pulse 100 100 100 Oximetry 04/01/19 04/01/19 04/01/19 10:51 11:01 11:11 Temperature Pulse Rate 70 69 67 Pulse Rate [ From Monitor] Respiratory 14 15 14 Rate Blood Pressure 152/78 152/78 149/75 O2 Sat by Pulse 100 100 100 Oximetry 04/01/19 04/01/19 04/01/19 11:18 11:21 11:31 Temperature Pulse Rate 72 72 69 Pulse Rate [ From Monitor] Respiratory 12 11 L Rate Blood Pressure 149/75 149/75 162/94 O2 Sat by Pulse 100 98 Oximetry 04/01/19 04/01/19 04/01/19 11:41 11:51 12:01 Temperature Pulse Rate 72 69 67 Pulse Rate [ From Monitor] Respiratory 11 L 12 14 Rate Blood Pressure 162/94 162/94 148/82 O2 Sat by Pulse 98 95 99 Oximetry 04/01/19 04/01/19 04/01/19 12:11 12:21 12:31 Temperature Pulse Rate 66 63 65 Pulse Rate [ From Monitor] Respiratory 16 14 14 Rate Blood Pressure 148/82 148/82 150/76 O2 Sat by Pulse 100 100 100 Oximetry 04/01/19 04/01/19 04/01/19 12:41 12:51 13:01 Temperature Pulse Rate 64 66 64 Pulse Rate [ From Monitor] Respiratory 13 8 L 12 Rate Blood Pressure 150/76 150/76 168/75 O2 Sat by Pulse 100 100 99 Oximetry 04/01/19 04/01/19 04/01/19 13:11 13:21 13:31 Temperature Pulse Rate 62 62 60 Pulse Rate [ From Monitor] Respiratory 13 13 14 Rate Blood Pressure 168/75 168/75 147/71 O2 Sat by Pulse 100 100 100 Oximetry 04/01/19 04/01/19 04/01/19 13:41 13:51 14:00 Temperature Pulse Rate 60 62 61 Pulse Rate [ From Monitor] Respiratory 13 11 L 13 Rate Blood Pressure 168/75 168/75 147/71 O2 Sat by Pulse 100 100 100 Oximetry 04/01/19 04/01/19 04/01/19 14:11 14:21 14:51 Temperature 98.0 F Pulse Rate 59 L 58 L 59 L Pulse Rate [ From Monitor] Respiratory 13 11 L 20 Rate Blood Pressure 147/71 147/71 163/82 O2 Sat by Pulse 98 100 97 Oximetry Constitutional: no acute distress, alert, other (elderly looking thin AAM, normocephalic and atraumatic) Eyes: non-icteric ENT: oropharynx moist Neck: supple, no lymphadenopathy, no JVD Effort: normal Ascultation: Bilateral: clear, diminished breath sounds Percussion: Bilateral: not dull Cardiovascular: regular rate and rhythm, other (No R/M) Gastrointestinal: normoactive bowel sounds, soft, non-tender, non-distended Integumentary: normal Extremities: no cyanosis, no edema, pulses normal, no ischemia or petechiae Neurologic: normal mental status, non-focal exam (grossly), pupils equal and round, motor strength normal and Psychiatric: mood appropriate, affect normal CBC and BMP: 04/04/19 05:34 04/02/19 05:02 ABG, PT/INR, D-dimer: PT/INR, D-dimer PT 13.6 Sec. (12.2-14.9) 03/31/19 17:28 INR 1.07 (0.87-1.13) 03/31/19 17:28 Abnormal lab findings: Abnormal Labs 03/30/19 03/30/19 03/30/19 20:43 20:43 21:17 WBC 15.7 H RBC 5.04 H Hct 46.7 H MCHC 31 L RDW 15.4 H Lymph % (Auto) 9.2 L Seg Neutrophils % 85.6 H Seg Neutrophils # 13.4 H Heparin Anti-Xa Level VBG pH 7.313 L Sodium 149 H Potassium 5.2 H Chloride 108.1 H Carbon Dioxide BUN 53 H Creatinine 1.8 H Glucose 774 H* POC Glucose Hemoglobin A1c Lactic Acid Calcium 10.4 H Phosphorus Magnesium Alkaline Phosphatase 137 H Total Creatine Kinase CK-MB (CK-2) CK-MB (CK-2) Rel Index Troponin T Triglycerides Cholesterol LDL Cholesterol Direct HDL Cholesterol Urine WBC (Auto) 03/30/19 03/30/19 03/30/19 21:23 21:23 22:45 WBC RBC Hct MCHC RDW Lymph % (Auto) Seg Neutrophils % Seg Neutrophils # Heparin Anti-Xa Level VBG pH Sodium Potassium Chloride Carbon Dioxide BUN Creatinine Glucose POC Glucose Hemoglobin A1c 9.9 H Lactic Acid Calcium Phosphorus Magnesium 2.90 H Alkaline Phosphatase Total Creatine Kinase CK-MB (CK-2) 8.7 H CK-MB (CK-2) Rel Index 7.1 H Troponin T 0.087 H Triglycerides 200 H Cholesterol 254 H LDL Cholesterol Direct 168 H HDL Cholesterol 68 H Urine WBC (Auto) 03/30/19 03/30/19 03/30/19 22:45 23:00 23:31 WBC RBC Hct MCHC RDW Lymph % (Auto) Seg Neutrophils % Seg Neutrophils # Heparin Anti-Xa Level VBG pH Sodium Potassium Chloride Carbon Dioxide BUN Creatinine Glucose POC Glucose > 500 H Hemoglobin A1c Lactic Acid Calcium Phosphorus 4.60 H Magnesium 3.00 H Alkaline Phosphatase Total Creatine Kinase CK-MB (CK-2) CK-MB (CK-2) Rel Index Troponin T Triglycerides Cholesterol LDL Cholesterol Direct HDL Cholesterol Urine WBC (Auto) 36.0 H 03/31/19 03/31/19 03/31/19 00:15 00:30 00:34 WBC RBC Hct MCHC RDW Lymph % (Auto) Seg Neutrophils % Seg Neutrophils # Heparin Anti-Xa Level VBG pH Sodium 155 H Potassium Chloride 113.2 H Carbon Dioxide BUN 51 H Creatinine 1.6 H Glucose 528 H* POC Glucose 480 H Hemoglobin A1c Lactic Acid Calcium 10.4 H Phosphorus Magnesium Alkaline Phosphatase Total Creatine Kinase 201 H CK-MB (CK-2) 14.7 H CK-MB (CK-2) Rel Index 7.3 H Troponin T 0.157 H* D Triglycerides Cholesterol LDL Cholesterol Direct HDL Cholesterol Urine WBC (Auto) 03/31/19 03/31/19 03/31/19 01:26 02:32 03:40 WBC RBC Hct MCHC RDW Lymph % (Auto) Seg Neutrophils % Seg Neutrophils # Heparin Anti-Xa Level VBG pH Sodium 158 H Potassium Chloride 115.8 H Carbon Dioxide BUN 49 H Creatinine 1.6 H Glucose 448 H POC Glucose 463 H 397 H Hemoglobin A1c Lactic Acid Calcium 10.7 H Phosphorus Magnesium Alkaline Phosphatase Total Creatine Kinase CK-MB (CK-2) CK-MB (CK-2) Rel Index Troponin T Triglycerides Cholesterol LDL Cholesterol Direct HDL Cholesterol Urine WBC (Auto) 03/31/19 03/31/19 03/31/19 03:51 05:16 05:47 WBC RBC Hct MCHC RDW Lymph % (Auto) Seg Neutrophils % Seg Neutrophils # Heparin Anti-Xa Level VBG pH Sodium Potassium Chloride Carbon Dioxide BUN Creatinine Glucose POC Glucose 369 H 384 H 230 H Hemoglobin A1c Lactic Acid Calcium Phosphorus Magnesium Alkaline Phosphatase Total Creatine Kinase CK-MB (CK-2) CK-MB (CK-2) Rel Index Troponin T Triglycerides Cholesterol LDL Cholesterol Direct HDL Cholesterol Urine WBC (Auto) 03/31/19 03/31/19 03/31/19 06:20 06:20 06:29 WBC RBC Hct MCHC RDW Lymph % (Auto) Seg Neutrophils % Seg Neutrophils # Heparin Anti-Xa Level VBG pH Sodium 158 H Potassium 3.5 L Chloride 117.5 H Carbon Dioxide BUN 47 H Creatinine 1.6 H Glucose 302 H POC Glucose 273 H Hemoglobin A1c Lactic Acid Calcium Phosphorus Magnesium Alkaline Phosphatase Total Creatine Kinase 264 H CK-MB (CK-2) 21.8 H CK-MB (CK-2) Rel Index 8.2 H Troponin T 0.284 H* D Triglycerides Cholesterol LDL Cholesterol Direct HDL Cholesterol Urine WBC (Auto) 03/31/19 03/31/19 03/31/19 06:32 06:34 07:43 WBC RBC Hct MCHC RDW Lymph % (Auto) Seg Neutrophils % Seg Neutrophils # Heparin Anti-Xa Level VBG pH Sodium Potassium Chloride Carbon Dioxide BUN Creatinine Glucose POC Glucose 180 H 185 H 146 H Hemoglobin A1c Lactic Acid Calcium Phosphorus Magnesium Alkaline Phosphatase Total Creatine Kinase CK-MB (CK-2) CK-MB (CK-2) Rel Index Troponin T Triglycerides Cholesterol LDL Cholesterol Direct HDL Cholesterol Urine WBC (Auto) 03/31/19 03/31/19 03/31/19 08:32 09:31 10:29 WBC RBC Hct MCHC RDW Lymph % (Auto) Seg Neutrophils % Seg Neutrophils # Heparin Anti-Xa Level VBG pH Sodium Potassium Chloride Carbon Dioxide BUN Creatinine Glucose POC Glucose 69 L 126 H 159 H Hemoglobin A1c Lactic Acid Calcium Phosphorus Magnesium Alkaline Phosphatase Total Creatine Kinase CK-MB (CK-2) CK-MB (CK-2) Rel Index Troponin T Triglycerides Cholesterol LDL Cholesterol Direct HDL Cholesterol Urine WBC (Auto) 03/31/19 03/31/19 03/31/19 11:15 12:33 13:37 WBC RBC Hct MCHC RDW Lymph % (Auto) Seg Neutrophils % Seg Neutrophils # Heparin Anti-Xa Level VBG pH Sodium Potassium Chloride Carbon Dioxide BUN Creatinine Glucose POC Glucose 178 H 169 H 194 H Hemoglobin A1c Lactic Acid Calcium Phosphorus Magnesium Alkaline Phosphatase Total Creatine Kinase CK-MB (CK-2) CK-MB (CK-2) Rel Index Troponin T Triglycerides Cholesterol LDL Cholesterol Direct HDL Cholesterol Urine WBC (Auto) 03/31/19 03/31/19 03/31/19 14:24 14:30 15:32 WBC RBC Hct MCHC RDW Lymph % (Auto) Seg Neutrophils % Seg Neutrophils # Heparin Anti-Xa Level VBG pH Sodium 156 H Potassium Chloride 122.9 H Carbon Dioxide 19 L BUN 41 H Creatinine Glucose 177 H POC Glucose 183 H 157 H Hemoglobin A1c Lactic Acid Calcium Phosphorus Magnesium Alkaline Phosphatase Total Creatine Kinase CK-MB (CK-2) CK-MB (CK-2) Rel Index Troponin T Triglycerides Cholesterol LDL Cholesterol Direct HDL Cholesterol Urine WBC (Auto) 03/31/19 03/31/19 03/31/19 16:32 17:28 17:30 WBC RBC Hct MCHC RDW Lymph % (Auto) Seg Neutrophils % Seg Neutrophils # Heparin Anti-Xa Level VBG pH Sodium Potassium Chloride Carbon Dioxide BUN Creatinine Glucose POC Glucose 153 H 130 H Hemoglobin A1c Lactic Acid 2.10 H* Calcium Phosphorus Magnesium Alkaline Phosphatase Total Creatine Kinase CK-MB (CK-2) CK-MB (CK-2) Rel Index Troponin T Triglycerides Cholesterol LDL Cholesterol Direct HDL Cholesterol Urine WBC (Auto) 03/31/19 03/31/19 03/31/19 18:40 19:27 19:46 WBC RBC Hct MCHC RDW Lymph % (Auto) Seg Neutrophils % Seg Neutrophils # Heparin Anti-Xa Level 0.13 L VBG pH Sodium Potassium Chloride Carbon Dioxide BUN Creatinine Glucose POC Glucose 116 H 119 H Hemoglobin A1c Lactic Acid Calcium Phosphorus Magnesium Alkaline Phosphatase Total Creatine Kinase CK-MB (CK-2) CK-MB (CK-2) Rel Index Troponin T Triglycerides Cholesterol LDL Cholesterol Direct HDL Cholesterol Urine WBC (Auto) 03/31/19 03/31/19 04/01/19 20:40 21:39 00:27 WBC RBC Hct MCHC RDW Lymph % (Auto) Seg Neutrophils % Seg Neutrophils # Heparin Anti-Xa Level VBG pH Sodium Potassium Chloride Carbon Dioxide BUN Creatinine Glucose POC Glucose 135 H 147 H 47 L Hemoglobin A1c Lactic Acid Calcium Phosphorus Magnesium Alkaline Phosphatase Total Creatine Kinase CK-MB (CK-2) CK-MB (CK-2) Rel Index Troponin T Triglycerides Cholesterol LDL Cholesterol Direct HDL Cholesterol Urine WBC (Auto) 04/01/19 04/01/19 04/01/19 03:37 04:15 04:35 WBC 14.0 H RBC Hct MCHC RDW Lymph % (Auto) Seg Neutrophils % Seg Neutrophils # Heparin Anti-Xa Level VBG pH Sodium Potassium Chloride Carbon Dioxide BUN Creatinine Glucose POC Glucose 54 L 160 H Hemoglobin A1c Lactic Acid Calcium Phosphorus Magnesium Alkaline Phosphatase Total Creatine Kinase CK-MB (CK-2) CK-MB (CK-2) Rel Index Troponin T Triglycerides Cholesterol LDL Cholesterol Direct HDL Cholesterol Urine WBC (Auto) 04/01/19 04/01/19 04/01/19 04:35 08:21 08:56 WBC RBC Hct MCHC RDW Lymph % (Auto) Seg Neutrophils % Seg Neutrophils # Heparin Anti-Xa Level VBG pH Sodium 157 H Potassium Chloride 123.7 H Carbon Dioxide BUN 29 H Creatinine Glucose 125 H POC Glucose 161 H Hemoglobin A1c Lactic Acid Calcium Phosphorus Magnesium Alkaline Phosphatase Total Creatine Kinase CK-MB (CK-2) CK-MB (CK-2) Rel Index Troponin T 0.396 H* D Triglycerides Cholesterol LDL Cholesterol Direct HDL Cholesterol Urine WBC (Auto) Allied health notes reviewed: nursing
[2019-04-01] MEDS: LANTUS SUB-Q SCH (23:47)
[2019-04-02] MEDS: HEPARIN/ 0.45% NACL-25,000 UNIT/500 ML 25,000 UNIT/500 ML BAG IV SCH (03:46)
[2019-04-02 05:55] LABS: Hematocrit 39.6 % (35.5-45.6); Hemoglobin 13.2 gm/dl (11.8-15.2); Mean Corpuscular HGB Conc 33 % (32-34); Mean Corpuscular Volume 89 fl (84-94); Platelet Count 144 K/mm3 (140-440); Red Blood Count 4.47 M/mm3 (3.65-5.03); Red Cell Distribution Width 13.9 % (13.2-15.2)
[2019-04-02 06:17] LABS: BUN/Creatinine Ratio 25; Blood Urea Nitrogen 25 mg/dL (9-20); Hemolysis Index 14
--- NOTE | 2019-04-02 08:23 | Progress Note ---
Assessment and Plan Hyperglycemic non-ketotic state Acute Kidney injury Acute cystitis NSTEMI Type 2- with rising troponin Hypernatremia HTN Hyperlipidemia Elevated blood pressure Coronary artery disease BPH H/o CVA with left arm weakness -Continue with accuchecks, glycemic control -Target blood glucose <180mg/dL -VTE prophylaxis -Chronic home medications -PT/OT, increase activity -Blood presure control and management -Replete electrolytes as necessary -Diabetic education -Avoid nephrotoxins and adjust all medications for CrCL/GFR -Avoid delirium, maintenance of sleep- wake cycle -Out of bed to chair daily -Discharge planning Subjective Date of service: 04/02/19 Principal diagnosis: HHNK Interval history: Patient is seen today for: hyperglycemic non ketotic state, acute metabolic encephaloapthy, post ICU care Seen and examined at bedside; 24hour events reviewed; nursing and respiratory care staff consulted; no adverse overnight events reported to me; Denies any chest pain, no shortness of breath, no fvers or chills. No diarrhea, appetite is good, sleeping well. Objective - Exam Narrative Exam: General appearance: Present: resting peacefully in bed, not in any distress, chronically ill looking - EENT Eyes: Present: PERRL, EOM intact ENT: hearing intact, clear oral mucosa - Neck Neck: Present: supple, normal ROM - Respiratory Respiratory effort: normal Respiratory: bilateral: CTA - Cardiovascular Rhythm: regular Heart Sounds: Present: S1 & S2. Absent: systolic murmur - Extremities Extremities: no ischemia, pulses intact, pulses symmetrical, No edema, normal temperature Peripheral Pulses: within normal limits - Abdominal General gastrointestinal: soft, non-tender, non-distended, normal bowel sounds - Integumentary Integumentary: Present: clear, warm, dry - Psychiatric Psychiatric: normal affect - Neurologic Neurologic: CNII-XII intact, moves all extremities - Allied Health Allied health notes reviewed: nursing Vital Signs - 12hr 04/01/19 04/01/19 22:00 23:45 Pulse Rate 66 Pulse Rate [ 68 From Monitor] Blood Pressure 140/69 CBC and BMP: 04/02/19 05:02 04/02/19 05:02 ABG, PT/INR, D-dimer: PT/INR, D-dimer PT 13.6 Sec. (12.2-14.9) 03/31/19 17:28 INR 1.07 (0.87-1.13) 03/31/19 17:28 Abnormal lab findings: Abnormal Labs 03/30/19 03/30/19 03/30/19 20:43 20:43 21:17 WBC 15.7 H RBC 5.04 H Hct 46.7 H MCHC 31 L RDW 15.4 H Lymph % (Auto) 9.2 L Seg Neutrophils % 85.6 H Seg Neutrophils # 13.4 H Heparin Anti-Xa Level VBG pH 7.313 L Sodium 149 H Potassium 5.2 H Chloride 108.1 H Carbon Dioxide BUN 53 H Creatinine 1.8 H Glucose 774 H* POC Glucose Hemoglobin A1c Lactic Acid Calcium 10.4 H Phosphorus Magnesium Alkaline Phosphatase 137 H Total Creatine Kinase CK-MB (CK-2) CK-MB (CK-2) Rel Index Troponin T Triglycerides Cholesterol LDL Cholesterol Direct HDL Cholesterol Urine WBC (Auto) 03/30/19 03/30/19 03/30/19 21:23 21:23 22:45 WBC RBC Hct MCHC RDW Lymph % (Auto) Seg Neutrophils % Seg Neutrophils # Heparin Anti-Xa Level VBG pH Sodium Potassium Chloride Carbon Dioxide BUN Creatinine Glucose POC Glucose Hemoglobin A1c 9.9 H Lactic Acid Calcium Phosphorus Magnesium 2.90 H Alkaline Phosphatase Total Creatine Kinase CK-MB (CK-2) 8.7 H CK-MB (CK-2) Rel Index 7.1 H Troponin T 0.087 H Triglycerides 200 H Cholesterol 254 H LDL Cholesterol Direct 168 H HDL Cholesterol 68 H Urine WBC (Auto) 03/30/19 03/30/19 03/30/19 22:45 23:00 23:31 WBC RBC Hct MCHC RDW Lymph % (Auto) Seg Neutrophils % Seg Neutrophils # Heparin Anti-Xa Level VBG pH Sodium Potassium Chloride Carbon Dioxide BUN Creatinine Glucose POC Glucose > 500 H Hemoglobin A1c Lactic Acid Calcium Phosphorus 4.60 H Magnesium 3.00 H Alkaline Phosphatase Total Creatine Kinase CK-MB (CK-2) CK-MB (CK-2) Rel Index Troponin T Triglycerides Cholesterol LDL Cholesterol Direct HDL Cholesterol Urine WBC (Auto) 36.0 H 03/31/19 03/31/19 03/31/19 00:15 00:30 00:34 WBC RBC Hct MCHC RDW Lymph % (Auto) Seg Neutrophils % Seg Neutrophils # Heparin Anti-Xa Level VBG pH Sodium 155 H Potassium Chloride 113.2 H Carbon Dioxide BUN 51 H Creatinine 1.6 H Glucose 528 H* POC Glucose 480 H Hemoglobin A1c Lactic Acid Calcium 10.4 H Phosphorus Magnesium Alkaline Phosphatase Total Creatine Kinase 201 H CK-MB (CK-2) 14.7 H CK-MB (CK-2) Rel Index 7.3 H Troponin T 0.157 H* D Triglycerides Cholesterol LDL Cholesterol Direct HDL Cholesterol Urine WBC (Auto) 03/31/19 03/31/19 03/31/19 01:26 02:32 03:40 WBC RBC Hct MCHC RDW Lymph % (Auto) Seg Neutrophils % Seg Neutrophils # Heparin Anti-Xa Level VBG pH Sodium 158 H Potassium Chloride 115.8 H Carbon Dioxide BUN 49 H Creatinine 1.6 H Glucose 448 H POC Glucose 463 H 397 H Hemoglobin A1c Lactic Acid Calcium 10.7 H Phosphorus Magnesium Alkaline Phosphatase Total Creatine Kinase CK-MB (CK-2) CK-MB (CK-2) Rel Index Troponin T Triglycerides Cholesterol LDL Cholesterol Direct HDL Cholesterol Urine WBC (Auto) 03/31/19 03/31/19 03/31/19 03:51 05:16 05:47 WBC RBC Hct MCHC RDW Lymph % (Auto) Seg Neutrophils % Seg Neutrophils # Heparin Anti-Xa Level VBG pH Sodium Potassium Chloride Carbon Dioxide BUN Creatinine Glucose POC Glucose 369 H 384 H 230 H Hemoglobin A1c Lactic Acid Calcium Phosphorus Magnesium Alkaline Phosphatase Total Creatine Kinase CK-MB (CK-2) CK-MB (CK-2) Rel Index Troponin T Triglycerides Cholesterol LDL Cholesterol Direct HDL Cholesterol Urine WBC (Auto) 03/31/19 03/31/19 03/31/19 06:20 06:20 06:29 WBC RBC Hct MCHC RDW Lymph % (Auto) Seg Neutrophils % Seg Neutrophils # Heparin Anti-Xa Level VBG pH Sodium 158 H Potassium 3.5 L Chloride 117.5 H Carbon Dioxide BUN 47 H Creatinine 1.6 H Glucose 302 H POC Glucose 273 H Hemoglobin A1c Lactic Acid Calcium Phosphorus Magnesium Alkaline Phosphatase Total Creatine Kinase 264 H CK-MB (CK-2) 21.8 H CK-MB (CK-2) Rel Index 8.2 H Troponin T 0.284 H* D Triglycerides Cholesterol LDL Cholesterol Direct HDL Cholesterol Urine WBC (Auto) 03/31/19 03/31/19 03/31/19 06:32 06:34 07:43 WBC RBC Hct MCHC RDW Lymph % (Auto) Seg Neutrophils % Seg Neutrophils # Heparin Anti-Xa Level VBG pH Sodium Potassium Chloride Carbon Dioxide BUN Creatinine Glucose POC Glucose 180 H 185 H 146 H Hemoglobin A1c Lactic Acid Calcium Phosphorus Magnesium Alkaline Phosphatase Total Creatine Kinase CK-MB (CK-2) CK-MB (CK-2) Rel Index Troponin T Triglycerides Cholesterol LDL Cholesterol Direct HDL Cholesterol Urine WBC (Auto) 03/31/19 03/31/19 03/31/19 08:32 09:31 10:29 WBC RBC Hct MCHC RDW Lymph % (Auto) Seg Neutrophils % Seg Neutrophils # Heparin Anti-Xa Level VBG pH Sodium Potassium Chloride Carbon Dioxide BUN Creatinine Glucose POC Glucose 69 L 126 H 159 H Hemoglobin A1c Lactic Acid Calcium Phosphorus Magnesium Alkaline Phosphatase Total Creatine Kinase CK-MB (CK-2) CK-MB (CK-2) Rel Index Troponin T Triglycerides Cholesterol LDL Cholesterol Direct HDL Cholesterol Urine WBC (Auto) 03/31/19 03/31/19 03/31/19 11:15 12:33 13:37 WBC RBC Hct MCHC RDW Lymph % (Auto) Seg Neutrophils % Seg Neutrophils # Heparin Anti-Xa Level VBG pH Sodium Potassium Chloride Carbon Dioxide BUN Creatinine Glucose POC Glucose 178 H 169 H 194 H Hemoglobin A1c Lactic Acid Calcium Phosphorus Magnesium Alkaline Phosphatase Total Creatine Kinase CK-MB (CK-2) CK-MB (CK-2) Rel Index Troponin T Triglycerides Cholesterol LDL Cholesterol Direct HDL Cholesterol Urine WBC (Auto) 03/31/19 03/31/19 03/31/19 14:24 14:30 15:32 WBC RBC Hct MCHC RDW Lymph % (Auto) Seg Neutrophils % Seg Neutrophils # Heparin Anti-Xa Level VBG pH Sodium 156 H Potassium Chloride 122.9 H Carbon Dioxide 19 L BUN 41 H Creatinine Glucose 177 H POC Glucose 183 H 157 H Hemoglobin A1c Lactic Acid Calcium Phosphorus Magnesium Alkaline Phosphatase Total Creatine Kinase CK-MB (CK-2) CK-MB (CK-2) Rel Index Troponin T Triglycerides Cholesterol LDL Cholesterol Direct HDL Cholesterol Urine WBC (Auto) 03/31/19 03/31/19 03/31/19 16:32 17:28 17:30 WBC RBC Hct MCHC RDW Lymph % (Auto) Seg Neutrophils % Seg Neutrophils # Heparin Anti-Xa Level VBG pH Sodium Potassium Chloride Carbon Dioxide BUN Creatinine Glucose POC Glucose 153 H 130 H Hemoglobin A1c Lactic Acid 2.10 H* Calcium Phosphorus Magnesium Alkaline Phosphatase Total Creatine Kinase CK-MB (CK-2) CK-MB (CK-2) Rel Index Troponin T Triglycerides Cholesterol LDL Cholesterol Direct HDL Cholesterol Urine WBC (Auto) 03/31/19 03/31/19 03/31/19 18:40 19:27 19:46 WBC RBC Hct MCHC RDW Lymph % (Auto) Seg Neutrophils % Seg Neutrophils # Heparin Anti-Xa Level 0.13 L VBG pH Sodium Potassium Chloride Carbon Dioxide BUN Creatinine Glucose POC Glucose 116 H 119 H Hemoglobin A1c Lactic Acid Calcium Phosphorus Magnesium Alkaline Phosphatase Total Creatine Kinase CK-MB (CK-2) CK-MB (CK-2) Rel Index Troponin T Triglycerides Cholesterol LDL Cholesterol Direct HDL Cholesterol Urine WBC (Auto) 03/31/19 03/31/19 04/01/19 20:40 21:39 00:27 WBC RBC Hct MCHC RDW Lymph % (Auto) Seg Neutrophils % Seg Neutrophils # Heparin Anti-Xa Level VBG pH Sodium Potassium Chloride Carbon Dioxide BUN Creatinine Glucose POC Glucose 135 H 147 H 47 L Hemoglobin A1c Lactic Acid Calcium Phosphorus Magnesium Alkaline Phosphatase Total Creatine Kinase CK-MB (CK-2) CK-MB (CK-2) Rel Index Troponin T Triglycerides Cholesterol LDL Cholesterol Direct HDL Cholesterol Urine WBC (Auto) 04/01/19 04/01/19 04/01/19 03:37 04:15 04:35 WBC 14.0 H RBC Hct MCHC RDW Lymph % (Auto) Seg Neutrophils % Seg Neutrophils # Heparin Anti-Xa Level VBG pH Sodium Potassium Chloride Carbon Dioxide BUN Creatinine Glucose POC Glucose 54 L 160 H Hemoglobin A1c Lactic Acid Calcium Phosphorus Magnesium Alkaline Phosphatase Total Creatine Kinase CK-MB (CK-2) CK-MB (CK-2) Rel Index Troponin T Triglycerides Cholesterol LDL Cholesterol Direct HDL Cholesterol Urine WBC (Auto) 04/01/19 04/01/19 04/01/19 04:35 08:21 08:56 WBC RBC Hct MCHC RDW Lymph % (Auto) Seg Neutrophils % Seg Neutrophils # Heparin Anti-Xa Level VBG pH Sodium 157 H Potassium Chloride 123.7 H Carbon Dioxide BUN 29 H Creatinine Glucose 125 H POC Glucose 161 H Hemoglobin A1c Lactic Acid Calcium Phosphorus Magnesium Alkaline Phosphatase Total Creatine Kinase CK-MB (CK-2) CK-MB (CK-2) Rel Index Troponin T 0.396 H* D Triglycerides Cholesterol LDL Cholesterol Direct HDL Cholesterol Urine WBC (Auto) 04/01/19 04/01/19 04/01/19 15:42 17:21 21:46 WBC RBC Hct MCHC RDW Lymph % (Auto) Seg Neutrophils % Seg Neutrophils # Heparin Anti-Xa Level 0.75 H VBG pH Sodium Potassium Chloride Carbon Dioxide BUN Creatinine Glucose POC Glucose 243 H 228 H Hemoglobin A1c Lactic Acid Calcium Phosphorus Magnesium Alkaline Phosphatase Total Creatine Kinase CK-MB (CK-2) CK-MB (CK-2) Rel Index Troponin T Triglycerides Cholesterol LDL Cholesterol Direct HDL Cholesterol Urine WBC (Auto) 04/02/19 04/02/19 05:02 07:18 WBC RBC Hct MCHC RDW Lymph % (Auto) Seg Neutrophils % Seg Neutrophils # Heparin Anti-Xa Level VBG pH Sodium 150 H Potassium Chloride 115.0 H Carbon Dioxide BUN 25 H Creatinine Glucose POC Glucose 66 L Hemoglobin A1c Lactic Acid Calcium Phosphorus Magnesium Alkaline Phosphatase Total Creatine Kinase CK-MB (CK-2) CK-MB (CK-2) Rel Index Troponin T Triglycerides Cholesterol LDL Cholesterol Direct HDL Cholesterol Urine WBC (Auto)
[2019-04-02] MEDS: HumaLOG SUB-Q SCH ×5 (08:31→22:30)
--- NOTE | 2019-04-02 08:37 | Progress Note ---
Assessment and Plan Assessment and plan: 78-year-old man with a history of coronary artery disease, diabetes, BPH, CVA with left arm weakness is brought to the emergency room by the daughter because his he's been lethargic and complains of thirst. He has not been on any medications for 4 years, daughter state that is helped improved once he started living with her. 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 ct HEAD: OLD STROKE AND MODERATE ATROPHY HONK Acute Kidney injury Secondary to vasomotor [id number] Acute cystitis-POA NSTEMI Type 2- with rising troponin-POA Hypernatremia HTN Hyperlipidemia Bradycardia Hypoglycemia Elevated blood pressure Coronary artery disease BPH H/o CVA with left arm weakness Plan Awaiting PT eval He is clinically improved today Monitor HR given initiation of BB. May need to adjust BB downwards. Will discuss with cardiology Adjust insulin. Monitor Sodium Echo reviewed- 50-55% Monitor fingersticks, serial chemistry, [id number] IV hydralazine for blood pressure control IV Rocephin for UTI, Monitor sodium level WILL STOP ABX TODAY Await Echo, cardiology following Counselling DVT prophylaxis History Interval history: Patient seen and examined, More improved today compared to yesterday, eating by himself. No family present today Hospitalist Physical - Physical exam Narrative exam: General appearance: Present: mild distress, disheveled, other (awake, confused) - EENT Eyes: Present: PERRL, EOM intact ENT: hearing intact, clear oral mucosa - Neck Neck: Present: supple, normal ROM - Respiratory Respiratory effort: normal Respiratory: bilateral: CTA - Cardiovascular Rhythm: regular Heart Sounds: Present: S1 & S2. Absent: systolic murmur - Extremities Extremities: no ischemia, pulses intact, pulses symmetrical, No edema, normal temperature Peripheral Pulses: within normal limits - Abdominal General gastrointestinal: soft, non-tender, non-distended, normal bowel sounds - Integumentary Integumentary: Present: clear, warm, dry - Psychiatric Psychiatric: memory intact, cooperative, depressed - Neurologic Neurologic: CNII-XII intact, moves all extremities - Allied Health Allied health notes reviewed: nursing - Constitutional Vitals: Temp Pulse Resp BP Pulse Ox 97.5 F L 66 18 140/69 98 04/01/19 20:11 04/01/19 23:45 04/01/19 20:11 04/01/19 23:45 04/01/19 20:11 General appearance: Present: mild distress, disheveled, other (awake, confused) Results - Labs CBC & Chem 7: 04/02/19 05:02 04/02/19 05:02 Labs: Laboratory Last Values WBC 10.0 K/mm3 (4.5-11.0) 04/02/19 05:02 RBC 4.47 M/mm3 (3.65-5.03) 04/02/19 05:02 Hgb 13.2 gm/dl (11.8-15.2) 04/02/19 05:02 Hct 39.6 % (35.5-45.6) 04/02/19 05:02 MCV 89 fl (84-94) 04/02/19 05:02 MCH 30 pg (28-32) 04/02/19 05:02 MCHC 33 % (32-34) 04/02/19 05:02 RDW 13.9 % (13.2-15.2) 04/02/19 05:02 Plt Count 144 K/mm3 (140-440) 04/02/19 05:02 Lymph % (Auto) 9.2 % (13.4-35.0) L 03/30/19 20:43 [place] % (Auto) 5.1 % (0.0-7.3) 03/30/19 20:43 Eos % (Auto) 0.0 % (0.0-4.3) 03/30/19 20:43 Baso % (Auto) 0.1 % (0.0-1.8) 03/30/19 20:43 Lymph # 1.5 K/mm3 (1.2-5.4) 03/30/19 20:43 [place] # 0.8 K/mm3 (0.0-0.8) 03/30/19 20:43 Eos # 0.0 K/mm3 (0.0-0.4) 03/30/19 20:43 Baso # 0.0 K/mm3 (0.0-0.1) 03/30/19 20:43 Seg Neutrophils % 85.6 % (40.0-70.0) H 03/30/19 20:43 Seg Neutrophils # 13.4 K/mm3 (1.8-7.7) H 03/30/19 20:43 PT 13.6 Sec. (12.2-14.9) 03/31/19 17:28 INR 1.07 (0.87-1.13) 03/31/19 17:28 APTT 26.1 Sec. (24.2-36.6) 03/31/19 17:28 Heparin Anti-Xa Level 0.43 U.I./ml (0.3-0.7) 04/01/19 21:59 VBG pH 7.313 (7.320-7.420) L 03/30/19 21:17 Sodium 150 mmol/L (137-145) H 04/02/19 05:02 Potassium 3.9 mmol/L (3.6-5.0) 04/02/19 05:02 Chloride 115.0 mmol/L (98-107) H 04/02/19 05:02 Carbon Dioxide 25 mmol/L (22-30) 04/02/19 05:02 14 mmol/L 04/02/19 05:02 BUN 25 mg/dL (9-20) H 04/02/19 05:02 1.0 mg/dL (0.8-1.5) 04/02/19 05:02 Estimated GFR > 60 ml/min 04/02/19 05:02 25 % 04/02/19 05:02 Glucose 84 mg/dL (75-100) 04/02/19 05:02 POC Glucose 85 (70-105) 04/02/19 08:16 9.9 % (4-6) H 03/30/19 22:45 Lactic Acid 1.80 mmol/L (0.7-2.0) 04/01/19 04:35 Calcium 9.0 mg/dL (8.4-10.2) 04/02/19 05:02 Phosphorus 4.60 mg/dL (2.5-4.5) H 03/30/19 22:45 Magnesium 3.00 mg/dL (1.7-2.3) H 03/30/19 22:45 0.30 mg/dL (0.1-1.2) 03/30/19 20:43 AST 13 units/L (5-40) 03/30/19 20:43 ALT 9 units/L (7-56) 03/30/19 20:43 137 units/L (35-129) H 03/30/19 20:43 35.0 umol/L (25-60) 03/30/19 21:23 264 units/L (55-170) H 03/31/19 06:20 CK-MB (CK-2) 21.8 ng/mL (0.0-4.0) H 03/31/19 06:20 CK-MB (CK-2) Rel Index 8.2 (0-4) H 03/31/19 06:20 0.396 ng/mL (0.00-0.029) H* D 04/01/19 08:56 0.10 mg/dL (0.00-1.30) 03/31/19 17:28 7.5 g/dL (6.3-8.2) 03/30/19 20:43 4.0 g/dL (3.9-5) 03/30/19 20:43 1.1 % 03/30/19 20:43 Triglycerides 200 mg/dL (2-149) H 03/30/19 21:23 Cholesterol 254 mg/dL (50-199) H 03/30/19 21:23 168 mg/dL (50-130) H 03/30/19 21:23 68 mg/dL (40-59) H 03/30/19 21:23 3.73 % 03/30/19 21:23 TSH 1.430 mlU/mL (0.270-4.200) 03/30/19 21:23 Free T4 1.23 ng/dL (0.76-1.46) 03/30/19 21:23 Straw (Yellow) 03/30/19 23:00 Slightly-cloudy (Clear) 03/30/19 23:00 5.0 (5.0-7.0) 03/30/19 23:00 Ur Specific [place] 1.027 (1.003-1.030) 03/30/19 23:00 <15 mg/dl mg/dL (Negative) 03/30/19 23:00 >=500 mg/dL (Negative) 03/30/19 23:00 Tr mg/dL (Negative) 03/30/19 23:00 Neg (Negative) 03/30/19 23:00 Neg (Negative) 03/30/19 23:00 Neg (Negative) 03/30/19 23:00 < 2.0 mg/dL (<2.0) 03/30/19 23:00 Ur Leukocyte Esterase Mod (Negative) 03/30/19 23:00 36.0 /HPF (0.0-6.0) H 03/30/19 23:00 5.0 /HPF (0.0-6.0) 03/30/19 23:00 U Epithel Cells (Auto) 1.0 /HPF (0-13.0) 03/30/19 23:00 Ur Yeast w Hyphae Few /HPF 03/30/19 23:00 2+ /HPF 03/30/19 23:00 Active Medications - Current Medications Current Medications: Generic Name Dose Route Start Last Admin Trade Name Freq PRN Reason Stop Dose Admin Acetaminophen 650 mg 03/30/19 23:46 Tylenol PO Q4H PRN Pain MILD(1-3)/Fever >100.5/MARTINEZ Aspirin 325 mg 04/01/19 10:00 04/01/19 11:18 Aspirin PO 325 mg QDAY SAVANNAH Administration Atorvastatin Calcium 40 mg 03/31/19 22:00 04/01/19 23:46 Lipitor PO 40 mg QHS SAVANNAH Administration Cholecalciferol 400 unit 04/01/19 10:00 04/01/19 11:19 Vitamin D3 PO 400 unit DAILY SAVANNAH Administration Cyanocobalamin 2,500 mcg 04/01/19 10:00 04/01/19 11:17 Vitamin B-12 PO 2,500 mcg QDAY SAVANNAH Administration Dextrose 0 ml 03/30/19 22:27 03/31/19 08:35 D50w (25gm) Syringe IV 15 ml ONCE PRN Administration Hypoglycemia Famotidine 20 mg 04/01/19 10:00 04/01/19 11:17 Pepcid PO 20 mg DAILY SAVANNAH Administration Hydralazine HCl 5 mg 03/30/19 23:47 Apresoline IV Q6H PRN Hypertension Ceftriaxone Sodium 1 gm in 50 mls @ 100 mls/hr 03/31/19 00:13 03/31/19 22:12 Rocephin/Ns 1 Gm/50 Ml IV 100 mls/hr Q24HR@2200 SAVANNAH Administration Protocol Heparin Sodium/Sodium Chloride 25,000 unit in 500 mls @ 18 mls/hr 03/31/19 17:00 04/02/19 03:46 Heparin/ 0.45% Nacl-25,000 Unit/500 Ml IV 900 units/hr TITRATE SAVANNAH 18 mls/hr Administration Protocol 900 UNITS/HR Insulin Glargine 12 units 04/02/19 22:00 Lantus SUB-Q [facility]HS [facility] Insulin Human Lispro 0 unit 03/31/19 22:00 04/02/19 08:31 Humalog SUB-Q Not Given ACHS [facility] Protocol Metoprolol Tartrate 25 mg 03/31/19 22:00 04/01/19 23:45 Lopressor PO 25 mg BID [facility] Administration Ondansetron HCl 4 mg 03/30/19 23:46 Zofran IV Q4H PRN Nausea And Vomiting Sodium Chloride 10 ml 03/31/19 10:00 04/01/19 23:50 Sodium Chloride Flush Syringe 10 Ml IV 10 ml BID SAVANNAH Administration Sodium Chloride 10 ml 03/30/19 23:46 Sodium Chloride Flush Syringe 10 Ml IV PRN PRN LINE FLUSH Nutrition/Malnutrition Assess - Dietary Evaluation Nutrition/Malnutrition Findings: Nutrition Notes Start: 03/31/19 14:43 Freq: Status: Active Protocol: Document 04/01/19 14:57 RM (Rec: 04/01/19 14:58 RM [email or web address]) Nutrition Notes Initial or Follow up Brief Note Current Diagnosis Acute Kidney Injury,Coronary Artery Disease,Diabetes Other Pertinent Diagnosis Hx CVA Labs/Tests A1c 9.9 Subjective/Other Information Pt confused at time of visit. Nutrition Intervention Follow-Up By: 04/04/19 Additional Comments Follow for DM diet education
[2019-04-02] MEDS: VITAMIN B-12 PO SCH (09:24)
[2019-04-02] MEDS: PEPCID PO SCH (09:25)
[2019-04-02] MEDS: SODIUM CHLORIDE FLUSH SYRINGE 10 ML IV SCH ×2 (09:25→22:31)
[2019-04-02] MEDS: ASPIRIN PO SCH (09:25)
[2019-04-02] MEDS: LOPRESSOR PO SCH ×2 (09:25→22:29)
[2019-04-02] MEDS: VITAMIN D3 PO SCH (10:07)
--- NOTE | 2019-04-02 12:16 | Progress Note ---
Assessment and Plan Patient remains stable from a cardiac standpoint. Continue ASA and Lipitor. Will start beta alma. May benefit from ischemic workup - will re-evaluate when family present. Patient has been seen in conjunction with Dr. Mack, who agrees with assessment and plan. - Patient Problems (1) HANK (acute kidney injury) Current Visit: Yes Status: Acute (2) HHNC (hyperglycemic hyperosmolar nonketotic coma) Current Visit: Yes Status: Acute (3) NSTEMI (non-ST elevated myocardial infarction) Current Visit: Yes Status: Acute (4) Altered mental status Current Visit: Yes Status: Acute (5) UTI (urinary tract infection) Current Visit: Yes Status: Acute (6) HTN (hypertension) Current Visit: Yes Status: Chronic (7) History of CVA (cerebrovascular accident) Current Visit: Yes Status: Chronic Subjective Date of service: 04/02/19 Principal diagnosis: HHNK Interval history: Patient lying in bed in NAD. No complaints. No family at bedside. Echo from 03/31/19 reviewed: EF 50 to 55 percent, mild to moderate LVH, abnormal LV diastolic function, significant aortic valve sclerosis without evidence of stenosis. Objective Last Vital Signs Temp 97.7 F 04/02/19 07:14 Pulse 58 L 04/02/19 10:00 Resp 18 04/02/19 10:00 BP 137/62 04/02/19 09:25 Pulse Ox 98 04/02/19 10:00 - Physical Examination General: No Apparent Distress HEENT: Positive: PERRL Neck: Positive: neck supple, trachea midline Cardiac: Positive: Reg Rate and Rhythm Lungs: Positive: Normal Exam Neuro: Positive: Grossly Intact Abdomen: Positive: Unremarkable Skin: Positive: Clear. Negative: Rash Musculoskeletal: No Pain, Normal Range of Motion Extremities: Present: normal. Absent: edema - Labs and Meds CBC 04/02/19 Range/Units 05:02 WBC 10.0 (4.5-11.0) K/mm3 RBC 4.47 (3.65-5.03) M/mm3 Hgb 13.2 (11.8-15.2) gm/dl Hct 39.6 (35.5-45.6) % Plt Count 144 (140-440) K/mm3 Comprehensive Metabolic Panel 04/02/19 Range/Units 05:02 Sodium 150 H (137-145) mmol/L Potassium 3.9 (3.6-5.0) mmol/L Chloride 115.0 H (98-107) mmol/L Carbon Dioxide 25 (22-30) mmol/L BUN 25 H (9-20) mg/dL Creatinine 1.0 (0.8-1.5) mg/dL Glucose 84 (75-100) mg/dL Calcium 9.0 (8.4-10.2) mg/dL - Imaging and Cardiology EKG: report reviewed, image reviewed Echo: report reviewed (EF 50-55%, mild to mod LVH, significant AV sclerosis, abn LV diastolic function ) - EKG Sinus rhythms and dysrhythmias: sinus rhythm
[2019-04-02] MEDS: ROCEPHIN/NS 1 GM/50 ML 1 GM/50 ML BAG IV SCH ×2 (19:30→22:30)
[2019-04-02] MEDS: COREG PO SCH (22:29)
[2019-04-02] MEDS: LANTUS SUB-Q SCH (22:30)
--- NOTE | 2019-04-03 07:10 | Progress Note ---
Assessment and Plan Assessment and plan: 78-year-old man with a history of coronary artery disease, diabetes, BPH, CVA with left arm weakness is brought to the emergency room by the daughter because his he's been lethargic and complains of thirst. He has not been on any medications for 4 years, daughter state that is helped improved once he started living with her. 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 * Clinical improvement following correction of Hyperglycemia. * Family reports that the patients physician had been doing diet control for management of Blood glucose, and that patient has had labs in the past with no one informing them of blood sugar issues * Patient currently awaiting PT eval and possible discharge in AM. HONK-Resolved Acute Kidney injury Secondary to vasomotor [id number] Acute cystitis-POA NSTEMI Type 2- with rising troponin-POA Hypernatremia HTN Hyperlipidemia Bradycardia DM with liabile Blood glucose, Hypoglycemia Elevated blood pressure Coronary artery disease BPH H/o CVA with left arm weakness Plan Awaiting PT eval He is clinically improved today Monitor HR given initiation of BB. May need to adjust BB downwards. patient received both coreg and Lopressor yesterday, the later discontinued this am. Will discuss with cardiology Adjust insulin. Monitor Sodium Echo reviewed- 50-55% Monitor fingersticks, serial chemistry, [id number] IV hydralazine for blood pressure control IV Rocephin for UTI, Monitor sodium level WILL STOP ABX TODAY Heparin discontinued Counselling DVT prophylaxis History Interval history: Patient seen and examined, More improved today compared to yesterday, No family present today Hospitalist Physical - Physical exam Narrative exam: General appearance: Present: mild distress, disheveled, other - EENT Eyes: Present: PERRL, EOM intact ENT: hearing intact, clear oral mucosa - Neck Neck: Present: supple, normal ROM - Respiratory Respiratory effort: normal Respiratory: bilateral: CTA - Cardiovascular Rhythm: regular Heart Sounds: Present: S1 & S2. Absent: systolic murmur - Extremities Extremities: no ischemia, pulses intact, pulses symmetrical, No edema, normal temperature Peripheral Pulses: within normal limits - Abdominal General gastrointestinal: soft, non-tender, non-distended, normal bowel sounds - Integumentary Integumentary: Present: clear, warm, dry - Psychiatric Psychiatric: memory intact, cooperative, depressed - Neurologic Neurologic: CNII-XII intact, moves all extremities - Allied Health Allied health notes reviewed: nursing - Constitutional Vitals: Temp Pulse Resp BP Pulse Ox 98.6 F 54 L 18 159/69 97 04/03/19 02:12 04/03/19 02:12 04/03/19 02:12 04/03/19 02:12 04/03/19 02:12 General appearance: Present: mild distress, disheveled, other (awake, confused) Results - Labs CBC & Chem 7: 04/02/19 05:02 04/02/19 05:02 Labs: Laboratory Last Values WBC 10.0 K/mm3 (4.5-11.0) 04/02/19 05:02 RBC 4.47 M/mm3 (3.65-5.03) 04/02/19 05:02 Hgb 13.2 gm/dl (11.8-15.2) 04/02/19 05:02 Hct 39.6 % (35.5-45.6) 04/02/19 05:02 MCV 89 fl (84-94) 04/02/19 05:02 MCH 30 pg (28-32) 04/02/19 05:02 MCHC 33 % (32-34) 04/02/19 05:02 RDW 13.9 % (13.2-15.2) 04/02/19 05:02 Plt Count 144 K/mm3 (140-440) 04/02/19 05:02 Lymph % (Auto) 9.2 % (13.4-35.0) L 03/30/19 20:43 [place] % (Auto) 5.1 % (0.0-7.3) 03/30/19 20:43 Eos % (Auto) 0.0 % (0.0-4.3) 03/30/19 20:43 Baso % (Auto) 0.1 % (0.0-1.8) 03/30/19 20:43 Lymph # 1.5 K/mm3 (1.2-5.4) 03/30/19 20:43 [place] # 0.8 K/mm3 (0.0-0.8) 03/30/19 20:43 Eos # 0.0 K/mm3 (0.0-0.4) 03/30/19 20:43 Baso # 0.0 K/mm3 (0.0-0.1) 03/30/19 20:43 Seg Neutrophils % 85.6 % (40.0-70.0) H 03/30/19 20:43 Seg Neutrophils # 13.4 K/mm3 (1.8-7.7) H 03/30/19 20:43 PT 13.6 Sec. (12.2-14.9) 03/31/19 17:28 INR 1.07 (0.87-1.13) 03/31/19 17:28 APTT 26.1 Sec. (24.2-36.6) 03/31/19 17:28 Heparin Anti-Xa Level < 0.10 U.I./ml (0.3-0.7) L 04/02/19 21:25 VBG pH 7.313 (7.320-7.420) L 03/30/19 21:17 Sodium 150 mmol/L (137-145) H 04/02/19 05:02 Potassium 3.9 mmol/L (3.6-5.0) 04/02/19 05:02 Chloride 115.0 mmol/L (98-107) H 04/02/19 05:02 Carbon Dioxide 25 mmol/L (22-30) 04/02/19 05:02 14 mmol/L 04/02/19 05:02 BUN 25 mg/dL (9-20) H 04/02/19 05:02 1.0 mg/dL (0.8-1.5) 04/02/19 05:02 Estimated GFR > 60 ml/min 04/02/19 05:02 25 % 04/02/19 05:02 Glucose 84 mg/dL (75-100) 04/02/19 05:02 POC Glucose 171 (70-105) H 04/02/19 21:49 9.9 % (4-6) H 03/30/19 22:45 Lactic Acid 1.80 mmol/L (0.7-2.0) 04/01/19 04:35 Calcium 9.0 mg/dL (8.4-10.2) 04/02/19 05:02 Phosphorus 4.60 mg/dL (2.5-4.5) H 03/30/19 22:45 Magnesium 3.00 mg/dL (1.7-2.3) H 03/30/19 22:45 0.30 mg/dL (0.1-1.2) 03/30/19 20:43 AST 13 units/L (5-40) 03/30/19 20:43 ALT 9 units/L (7-56) 03/30/19 20:43 137 units/L (35-129) H 03/30/19 20:43 35.0 umol/L (25-60) 03/30/19 21:23 264 units/L (55-170) H 03/31/19 06:20 CK-MB (CK-2) 21.8 ng/mL (0.0-4.0) H 03/31/19 06:20 CK-MB (CK-2) Rel Index 8.2 (0-4) H 03/31/19 06:20 0.396 ng/mL (0.00-0.029) H* D 04/01/19 08:56 0.10 mg/dL (0.00-1.30) 03/31/19 17:28 7.5 g/dL (6.3-8.2) 03/30/19 20:43 4.0 g/dL (3.9-5) 03/30/19 20:43 1.1 % 03/30/19 20:43 Triglycerides 200 mg/dL (2-149) H 03/30/19 21:23 Cholesterol 254 mg/dL (50-199) H 03/30/19 21:23 168 mg/dL (50-130) H 03/30/19 21:23 68 mg/dL (40-59) H 03/30/19 21:23 3.73 % 03/30/19 21:23 TSH 1.430 mlU/mL (0.270-4.200) 03/30/19 21:23 Free T4 1.23 ng/dL (0.76-1.46) 03/30/19 21:23 Straw (Yellow) 03/30/19 23:00 Slightly-cloudy (Clear) 03/30/19 23:00 5.0 (5.0-7.0) 03/30/19 23:00 Ur Specific [place] 1.027 (1.003-1.030) 03/30/19 23:00 <15 mg/dl mg/dL (Negative) 03/30/19 23:00 >=500 mg/dL (Negative) 03/30/19 23:00 Tr mg/dL (Negative) 03/30/19 23:00 Neg (Negative) 03/30/19 23:00 Neg (Negative) 03/30/19 23:00 Neg (Negative) 03/30/19 23:00 < 2.0 mg/dL (<2.0) 03/30/19 23:00 Ur Leukocyte Esterase Mod (Negative) 03/30/19 23:00 36.0 /HPF (0.0-6.0) H 03/30/19 23:00 5.0 /HPF (0.0-6.0) 03/30/19 23:00 U Epithel Cells (Auto) 1.0 /HPF (0-13.0) 03/30/19 23:00 Ur Yeast w Hyphae Few /HPF 03/30/19 23:00 2+ /HPF 03/30/19 23:00 Active Medications - Current Medications Current Medications: Generic Name Dose Route Start Last Admin Trade Name Freq PRN Reason Stop Dose Admin Acetaminophen 650 mg 03/30/19 23:46 Tylenol PO Q4H PRN Pain MILD(1-3)/Fever >100.5/MARTINEZ Aspirin 325 mg 04/01/19 10:00 04/02/19 09:25 Aspirin PO 325 mg QDAY SAVANNAH Administration Atorvastatin Calcium 40 mg 03/31/19 22:00 04/02/19 22:29 Lipitor PO 40 mg QHS SAVANNAH Administration Carvedilol 3.125 mg 04/02/19 22:00 04/02/19 22:29 Coreg PO 3.125 mg BID SAVANNAH Administration Cholecalciferol 400 unit 04/01/19 10:00 04/02/19 10:07 Vitamin D3 PO 400 unit DAILY SAVANNAH Administration Cyanocobalamin 2,500 mcg 04/01/19 10:00 04/02/19 09:24 Vitamin B-12 PO 2,500 mcg QDAY SAVANNAH Administration Dextrose 0 ml 03/30/19 22:27 03/31/19 08:35 D50w (25gm) Syringe IV 15 ml ONCE PRN Administration Hypoglycemia Famotidine 20 mg 04/01/19 10:00 04/02/19 09:25 Pepcid PO 20 mg DAILY SAVANNAH Administration Hydralazine HCl 5 mg 03/30/19 23:47 Apresoline IV Q6H PRN Hypertension Insulin Glargine 12 units 04/02/19 22:00 04/02/19 22:30 Lantus SUB-Q 12 units QHS SAVANNAH Administration Insulin Human Lispro 0 unit 03/31/19 22:00 04/02/19 22:30 Humalog SUB-Q 1 unit ACHS SAVANNAH Administration Protocol Ondansetron HCl 4 mg 03/30/19 23:46 Zofran IV Q4H PRN Nausea And Vomiting Sodium Chloride 10 ml 03/31/19 10:00 04/02/19 22:31 Sodium Chloride Flush Syringe 10 Ml IV 10 ml BID SAVANNAH Administration Sodium Chloride 10 ml 03/30/19 23:46 Sodium Chloride Flush Syringe 10 Ml IV PRN PRN LINE FLUSH Nutrition/Malnutrition Assess - Dietary Evaluation Nutrition/Malnutrition Findings: Nutrition Notes Start: 03/31/19 14:43 Freq: Status: Active Protocol: Document 04/01/19 14:57 RM (Rec: 04/01/19 14:58 RM [id number]) Nutrition Notes Initial or Follow up Brief Note Current Diagnosis Acute Kidney Injury,Coronary Artery Disease,Diabetes Other Pertinent Diagnosis Hx CVA Labs/Tests A1c 9.9 Subjective/Other Information Pt confused at time of visit. Nutrition Intervention Follow-Up By: 04/04/19 Additional Comments Follow for DM diet education
[2019-04-03] MEDS: HumaLOG SUB-Q SCH ×4 (08:00→21:58)
[2019-04-03] MEDS: VITAMIN B-12 PO SCH (09:40)
[2019-04-03] MEDS: PEPCID PO SCH (09:40)
[2019-04-03] MEDS: ASPIRIN PO SCH (09:40)
[2019-04-03] MEDS: VITAMIN D3 PO SCH (09:40)
[2019-04-03] MEDS: SODIUM CHLORIDE FLUSH SYRINGE 10 ML IV SCH ×2 (09:41→21:14)
[2019-04-03] MEDS: COREG PO SCH (09:41)
--- NOTE | 2019-04-03 09:47 | Progress Note ---
Assessment and Plan Hyperglycemic non-ketotic state Acute Kidney injury Acute cystitis NSTEMI Type 2- with rising troponin Hypernatremia HTN Hyperlipidemia Elevated blood pressure Coronary artery disease BPH H/o CVA with left arm weakness -Continue with accuchecks, glycemic control -Target blood glucose <180mg/dL -VTE prophylaxis -Chronic home medications -PT/OT, increase activity -Blood pressure control and management -Replete electrolytes as necessary -Free water flushes, hypotonic solutions for hypernatremia -Diabetic education, on going -Avoid nephrotoxins and adjust all medications for CrCL/GFR -Avoid delirium, maintenance of sleep- wake cycle -Out of bed to chair daily -Discharge planning Subjective Date of service: 04/03/19 Principal diagnosis: HHNK Interval history: Patient is seen today for: hyperglycemic non ketotic state, acute metabolic encephaloapthy, post ICU care Seen and examined at bedside; 24hour events reviewed;Vitals, labs, medications, chart reviewed; nursing and respiratory care staff consulted; no adverse overnight events reported to me; Denies any chest pain, no shortness of breath, no fevers or chills. No diarrhea, appetite is good, sleeping well. Objective - Exam Narrative Exam: General appearance: Present: resting peacefully in bed, not in any distress, chronically ill looking - EENT Eyes: Present: PERRL, EOM intact ENT: hearing intact, clear oral mucosa - Neck Neck: Present: supple, normal ROM - Respiratory Respiratory effort: normal Respiratory: bilateral: CTA - Cardiovascular Rhythm: regular Heart Sounds: Present: S1 & S2. Absent: systolic murmur - Extremities Extremities: no ischemia, pulses intact, pulses symmetrical, No edema, normal temperature Peripheral Pulses: within normal limits - Abdominal General gastrointestinal: soft, non-tender, non-distended, normal bowel sounds - Integumentary Integumentary: Present: clear, warm, dry - Psychiatric Psychiatric: normal affect - Neurologic Neurologic: CNII-XII intact, moves all extremities - Allied Health Allied health notes reviewed: nursing Vital Signs - 12hr 04/03/19 04/03/19 04/03/19 02:12 07:22 07:34 Temperature 98.6 F 97.7 F Pulse Rate 54 L 62 Pulse Rate [ 62 From Monitor] Respiratory 18 18 20 Rate Blood Pressure 159/69 137/75 O2 Sat by Pulse 97 99 96 Oximetry 04/03/19 09:41 Temperature Pulse Rate 62 Pulse Rate [ From Monitor] Respiratory Rate Blood Pressure 137/75 O2 Sat by Pulse Oximetry CBC and BMP: 04/04/19 05:34 04/02/19 05:02 ABG, PT/INR, D-dimer: PT/INR, D-dimer PT 13.6 Sec. (12.2-14.9) 03/31/19 17:28 INR 1.07 (0.87-1.13) 03/31/19 17:28 Abnormal lab findings: Abnormal Labs 03/30/19 03/30/19 03/30/19 20:43 20:43 21:17 WBC 15.7 H RBC 5.04 H Hct 46.7 H MCHC 31 L RDW 15.4 H Lymph % (Auto) 9.2 L Seg Neutrophils % 85.6 H Seg Neutrophils # 13.4 H Heparin Anti-Xa Level VBG pH 7.313 L Sodium 149 H Potassium 5.2 H Chloride 108.1 H Carbon Dioxide BUN 53 H Creatinine 1.8 H Glucose 774 H* POC Glucose Hemoglobin A1c Lactic Acid Calcium 10.4 H Phosphorus Magnesium Alkaline Phosphatase 137 H Total Creatine Kinase CK-MB (CK-2) CK-MB (CK-2) Rel Index Troponin T Triglycerides Cholesterol LDL Cholesterol Direct HDL Cholesterol Urine WBC (Auto) 03/30/19 03/30/19 03/30/19 21:23 21:23 22:45 WBC RBC Hct MCHC RDW Lymph % (Auto) Seg Neutrophils % Seg Neutrophils # Heparin Anti-Xa Level VBG pH Sodium Potassium Chloride Carbon Dioxide BUN Creatinine Glucose POC Glucose Hemoglobin A1c 9.9 H Lactic Acid Calcium Phosphorus Magnesium 2.90 H Alkaline Phosphatase Total Creatine Kinase CK-MB (CK-2) 8.7 H CK-MB (CK-2) Rel Index 7.1 H Troponin T 0.087 H Triglycerides 200 H Cholesterol 254 H LDL Cholesterol Direct 168 H HDL Cholesterol 68 H Urine WBC (Auto) 03/30/19 03/30/19 03/30/19 22:45 23:00 23:31 WBC RBC Hct MCHC RDW Lymph % (Auto) Seg Neutrophils % Seg Neutrophils # Heparin Anti-Xa Level VBG pH Sodium Potassium Chloride Carbon Dioxide BUN Creatinine Glucose POC Glucose > 500 H Hemoglobin A1c Lactic Acid Calcium Phosphorus 4.60 H Magnesium 3.00 H Alkaline Phosphatase Total Creatine Kinase CK-MB (CK-2) CK-MB (CK-2) Rel Index Troponin T Triglycerides Cholesterol LDL Cholesterol Direct HDL Cholesterol Urine WBC (Auto) 36.0 H 03/31/19 03/31/19 03/31/19 00:15 00:30 00:34 WBC RBC Hct MCHC RDW Lymph % (Auto) Seg Neutrophils % Seg Neutrophils # Heparin Anti-Xa Level VBG pH Sodium 155 H Potassium Chloride 113.2 H Carbon Dioxide BUN 51 H Creatinine 1.6 H Glucose 528 H* POC Glucose 480 H Hemoglobin A1c Lactic Acid Calcium 10.4 H Phosphorus Magnesium Alkaline Phosphatase Total Creatine Kinase 201 H CK-MB (CK-2) 14.7 H CK-MB (CK-2) Rel Index 7.3 H Troponin T 0.157 H* D Triglycerides Cholesterol LDL Cholesterol Direct HDL Cholesterol Urine WBC (Auto) 03/31/19 03/31/19 03/31/19 01:26 02:32 03:40 WBC RBC Hct MCHC RDW Lymph % (Auto) Seg Neutrophils % Seg Neutrophils # Heparin Anti-Xa Level VBG pH Sodium 158 H Potassium Chloride 115.8 H Carbon Dioxide BUN 49 H Creatinine 1.6 H Glucose 448 H POC Glucose 463 H 397 H Hemoglobin A1c Lactic Acid Calcium 10.7 H Phosphorus Magnesium Alkaline Phosphatase Total Creatine Kinase CK-MB (CK-2) CK-MB (CK-2) Rel Index Troponin T Triglycerides Cholesterol LDL Cholesterol Direct HDL Cholesterol Urine WBC (Auto) 03/31/19 03/31/19 03/31/19 03:51 05:16 05:47 WBC RBC Hct MCHC RDW Lymph % (Auto) Seg Neutrophils % Seg Neutrophils # Heparin Anti-Xa Level VBG pH Sodium Potassium Chloride Carbon Dioxide BUN Creatinine Glucose POC Glucose 369 H 384 H 230 H Hemoglobin A1c Lactic Acid Calcium Phosphorus Magnesium Alkaline Phosphatase Total Creatine Kinase CK-MB (CK-2) CK-MB (CK-2) Rel Index Troponin T Triglycerides Cholesterol LDL Cholesterol Direct HDL Cholesterol Urine WBC (Auto) 03/31/19 03/31/19 03/31/19 06:20 06:20 06:29 WBC RBC Hct MCHC RDW Lymph % (Auto) Seg Neutrophils % Seg Neutrophils # Heparin Anti-Xa Level VBG pH Sodium 158 H Potassium 3.5 L Chloride 117.5 H Carbon Dioxide BUN 47 H Creatinine 1.6 H Glucose 302 H POC Glucose 273 H Hemoglobin A1c Lactic Acid Calcium Phosphorus Magnesium Alkaline Phosphatase Total Creatine Kinase 264 H CK-MB (CK-2) 21.8 H CK-MB (CK-2) Rel Index 8.2 H Troponin T 0.284 H* D Triglycerides Cholesterol LDL Cholesterol Direct HDL Cholesterol Urine WBC (Auto) 03/31/19 03/31/19 03/31/19 06:32 06:34 07:43 WBC RBC Hct MCHC RDW Lymph % (Auto) Seg Neutrophils % Seg Neutrophils # Heparin Anti-Xa Level VBG pH Sodium Potassium Chloride Carbon Dioxide BUN Creatinine Glucose POC Glucose 180 H 185 H 146 H Hemoglobin A1c Lactic Acid Calcium Phosphorus Magnesium Alkaline Phosphatase Total Creatine Kinase CK-MB (CK-2) CK-MB (CK-2) Rel Index Troponin T Triglycerides Cholesterol LDL Cholesterol Direct HDL Cholesterol Urine WBC (Auto) 03/31/19 03/31/19 03/31/19 08:32 09:31 10:29 WBC RBC Hct MCHC RDW Lymph % (Auto) Seg Neutrophils % Seg Neutrophils # Heparin Anti-Xa Level VBG pH Sodium Potassium Chloride Carbon Dioxide BUN Creatinine Glucose POC Glucose 69 L 126 H 159 H Hemoglobin A1c Lactic Acid Calcium Phosphorus Magnesium Alkaline Phosphatase Total Creatine Kinase CK-MB (CK-2) CK-MB (CK-2) Rel Index Troponin T Triglycerides Cholesterol LDL Cholesterol Direct HDL Cholesterol Urine WBC (Auto) 03/31/19 03/31/19 03/31/19 11:15 12:33 13:37 WBC RBC Hct MCHC RDW Lymph % (Auto) Seg Neutrophils % Seg Neutrophils # Heparin Anti-Xa Level VBG pH Sodium Potassium Chloride Carbon Dioxide BUN Creatinine Glucose POC Glucose 178 H 169 H 194 H Hemoglobin A1c Lactic Acid Calcium Phosphorus Magnesium Alkaline Phosphatase Total Creatine Kinase CK-MB (CK-2) CK-MB (CK-2) Rel Index Troponin T Triglycerides Cholesterol LDL Cholesterol Direct HDL Cholesterol Urine WBC (Auto) 03/31/19 03/31/19 03/31/19 14:24 14:30 15:32 WBC RBC Hct MCHC RDW Lymph % (Auto) Seg Neutrophils % Seg Neutrophils # Heparin Anti-Xa Level VBG pH Sodium 156 H Potassium Chloride 122.9 H Carbon Dioxide 19 L BUN 41 H Creatinine Glucose 177 H POC Glucose 183 H 157 H Hemoglobin A1c Lactic Acid Calcium Phosphorus Magnesium Alkaline Phosphatase Total Creatine Kinase CK-MB (CK-2) CK-MB (CK-2) Rel Index Troponin T Triglycerides Cholesterol LDL Cholesterol Direct HDL Cholesterol Urine WBC (Auto) 03/31/19 03/31/19 03/31/19 16:32 17:28 17:30 WBC RBC Hct MCHC RDW Lymph % (Auto) Seg Neutrophils % Seg Neutrophils # Heparin Anti-Xa Level VBG pH Sodium Potassium Chloride Carbon Dioxide BUN Creatinine Glucose POC Glucose 153 H 130 H Hemoglobin A1c Lactic Acid 2.10 H* Calcium Phosphorus Magnesium Alkaline Phosphatase Total Creatine Kinase CK-MB (CK-2) CK-MB (CK-2) Rel Index Troponin T Triglycerides Cholesterol LDL Cholesterol Direct HDL Cholesterol Urine WBC (Auto) 03/31/19 03/31/19 03/31/19 18:40 19:27 19:46 WBC RBC Hct MCHC RDW Lymph % (Auto) Seg Neutrophils % Seg Neutrophils # Heparin Anti-Xa Level 0.13 L VBG pH Sodium Potassium Chloride Carbon Dioxide BUN Creatinine Glucose POC Glucose 116 H 119 H Hemoglobin A1c Lactic Acid Calcium Phosphorus Magnesium Alkaline Phosphatase Total Creatine Kinase CK-MB (CK-2) CK-MB (CK-2) Rel Index Troponin T Triglycerides Cholesterol LDL Cholesterol Direct HDL Cholesterol Urine WBC (Auto) 03/31/19 03/31/19 04/01/19 20:40 21:39 00:27 WBC RBC Hct MCHC RDW Lymph % (Auto) Seg Neutrophils % Seg Neutrophils # Heparin Anti-Xa Level VBG pH Sodium Potassium Chloride Carbon Dioxide BUN Creatinine Glucose POC Glucose 135 H 147 H 47 L Hemoglobin A1c Lactic Acid Calcium Phosphorus Magnesium Alkaline Phosphatase Total Creatine Kinase CK-MB (CK-2) CK-MB (CK-2) Rel Index Troponin T Triglycerides Cholesterol LDL Cholesterol Direct HDL Cholesterol Urine WBC (Auto) 04/01/19 04/01/19 04/01/19 03:37 04:15 04:35 WBC 14.0 H RBC Hct MCHC RDW Lymph % (Auto) Seg Neutrophils % Seg Neutrophils # Heparin Anti-Xa Level VBG pH Sodium Potassium Chloride Carbon Dioxide BUN Creatinine Glucose POC Glucose 54 L 160 H Hemoglobin A1c Lactic Acid Calcium Phosphorus Magnesium Alkaline Phosphatase Total Creatine Kinase CK-MB (CK-2) CK-MB (CK-2) Rel Index Troponin T Triglycerides Cholesterol LDL Cholesterol Direct HDL Cholesterol Urine WBC (Auto) 04/01/19 04/01/19 04/01/19 04:35 08:21 08:56 WBC RBC Hct MCHC RDW Lymph % (Auto) Seg Neutrophils % Seg Neutrophils # Heparin Anti-Xa Level VBG pH Sodium 157 H Potassium Chloride 123.7 H Carbon Dioxide BUN 29 H Creatinine Glucose 125 H POC Glucose 161 H Hemoglobin A1c Lactic Acid Calcium Phosphorus Magnesium Alkaline Phosphatase Total Creatine Kinase CK-MB (CK-2) CK-MB (CK-2) Rel Index Troponin T 0.396 H* D Triglycerides Cholesterol LDL Cholesterol Direct HDL Cholesterol Urine WBC (Auto) 04/01/19 04/01/19 04/01/19 15:42 17:21 21:46 WBC RBC Hct MCHC RDW Lymph % (Auto) Seg Neutrophils % Seg Neutrophils # Heparin Anti-Xa Level 0.75 H VBG pH Sodium Potassium Chloride Carbon Dioxide BUN Creatinine Glucose POC Glucose 243 H 228 H Hemoglobin A1c Lactic Acid Calcium Phosphorus Magnesium Alkaline Phosphatase Total Creatine Kinase CK-MB (CK-2) CK-MB (CK-2) Rel Index Troponin T Triglycerides Cholesterol LDL Cholesterol Direct HDL Cholesterol Urine WBC (Auto) 04/02/19 04/02/19 04/02/19 05:02 07:18 11:27 WBC RBC Hct MCHC RDW Lymph % (Auto) Seg Neutrophils % Seg Neutrophils # Heparin Anti-Xa Level VBG pH Sodium 150 H Potassium Chloride 115.0 H Carbon Dioxide BUN 25 H Creatinine Glucose POC Glucose 66 L 178 H Hemoglobin A1c Lactic Acid Calcium Phosphorus Magnesium Alkaline Phosphatase Total Creatine Kinase CK-MB (CK-2) CK-MB (CK-2) Rel Index Troponin T Triglycerides Cholesterol LDL Cholesterol Direct HDL Cholesterol Urine WBC (Auto) 04/02/19 04/02/19 04/02/19 16:19 21:25 21:49 WBC RBC Hct MCHC RDW Lymph % (Auto) Seg Neutrophils % Seg Neutrophils # Heparin Anti-Xa Level < 0.10 L VBG pH Sodium Potassium Chloride Carbon Dioxide BUN Creatinine Glucose POC Glucose 160 H 171 H Hemoglobin A1c Lactic Acid Calcium Phosphorus Magnesium Alkaline Phosphatase Total Creatine Kinase CK-MB (CK-2) CK-MB (CK-2) Rel Index Troponin T Triglycerides Cholesterol LDL Cholesterol Direct HDL Cholesterol Urine WBC (Auto)
--- NOTE | 2019-04-03 11:17 | Progress Note ---
Assessment and Plan Patient is stable from a cardiac standpoint. Will d/c Coreg and restart metoprolol as originally ordered. Continue other cardiac management. Pulmonology recommendations noted. Patient has been seen in conjunction with Dr. Mack, who agrees with assessment and plan. - Patient Problems (1) HANK (acute kidney injury) Current Visit: Yes Status: Acute (2) HHNC (hyperglycemic hyperosmolar nonketotic coma) Current Visit: Yes Status: Acute (3) NSTEMI (non-ST elevated myocardial infarction) Current Visit: Yes Status: Acute (4) Altered mental status Current Visit: Yes Status: Acute (5) UTI (urinary tract infection) Current Visit: Yes Status: Acute (6) HTN (hypertension) Current Visit: Yes Status: Chronic (7) History of CVA (cerebrovascular accident) Current Visit: Yes Status: Chronic Subjective Date of service: 04/03/19 Principal diagnosis: HHNK Interval history: Patient lying in bed in NAD, eating breakfast. No complaints. He is conversing appropriately this morning and reports he feels well. Objective Last Vital Signs Temp 97.7 F 04/03/19 07:22 Pulse 62 04/03/19 09:41 Resp 20 04/03/19 07:34 BP 137/75 04/03/19 09:41 Pulse Ox 96 04/03/19 07:34 - Physical Examination General: No Apparent Distress HEENT: Positive: PERRL Neck: Positive: neck supple, trachea midline Neuro: Positive: Grossly Intact Abdomen: Positive: Unremarkable Skin: Positive: Clear. Negative: Rash Musculoskeletal: No Pain, Normal Range of Motion Extremities: Present: normal. Absent: edema - Imaging and Cardiology EKG: report reviewed, image reviewed Echo: report reviewed (EF 50-55%, mild to mod LVH, significant AV sclerosis, abn LV diastolic function ) - EKG Sinus rhythms and dysrhythmias: sinus rhythm
[2019-04-03] MEDS: LOPRESSOR PO SCH (21:14)
[2019-04-03] MEDS: LANTUS SUB-Q SCH (21:58)
[2019-04-04 05:55] LABS: Hematocrit 35.9 % (35.5-45.6); Hemoglobin 12.3 gm/dl (11.8-15.2)
[2019-04-04] MEDS: HumaLOG SUB-Q SCH ×4 (07:35→21:53)
--- NOTE | 2019-04-04 08:59 | Progress Note ---
Assessment and Plan Diabetic ketoacidosis. Acute toxic metabolic encephalopathy. Non-ST elevation myocardial infarction History of cerebrovascular accident without overt residual deficits. Coronary artery disease by history. Hypertension. Adult failure to thrive. Moderate protein calorie malnutrition. Leukocytosis. Hypernatremia. Acute kidney injury. Hyperkalemia. Hyperlipidemia. Urinary tract infection. - Continue accuchecks with glycemic control per SSI for target blood glucose <180mg/dL - continue VTE prophylaxis - continue chronic home medications - aggressive PT/OT, increase activity as tolerated - Blood presure control and management - Replete electrolytes as necessary - Diabetic education ongoing - continue to avoid nephrotoxins and adjust all medications for CrCL/GFR - Avoid delirium, maintenance of sleep- wake cycle - Discharge planning ongoing .... ?? Placement in short term Subjective Date of service: 04/04/19 Principal diagnosis: DKA; Ac. encephalopathy; NSTEMI; Acute kidney injury; UTI; H/O CVA; CAD;HTN Interval history: Patient is seen today for: DKA; Acute toxic metabolic encephalopathy; NSTEMI; H/O CVA; CAD; HTN; Adult failure to thrive; Moderate protein calorie mal nutrition; Acute kidney injury; UTI Seen and examined at bedside; 24hour events reviewed; nursing and respiratory care staff consulted; no adverse overnight events reported to me; resting peacefully in bed; PT/OT about to begin; denies acute chest pains; No N/V/F/C; sugars well controlled Objective Vital Signs - 12hr 04/04/19 04/04/19 04/04/19 03:00 07:15 08:06 Temperature 98.6 F 98.4 F Pulse Rate 64 63 Pulse Rate [ 63 From Monitor] Respiratory 18 18 18 Rate Blood Pressure 188/80 142/59 O2 Sat by Pulse 99 99 99 Oximetry Constitutional: no acute distress, alert, other (elderly looking thin AAM, normocephalic and atraumatic) Eyes: non-icteric ENT: oropharynx moist Neck: supple, no lymphadenopathy, no JVD Effort: normal Ascultation: Bilateral: clear, diminished breath sounds Percussion: Bilateral: not dull Cardiovascular: regular rate and rhythm, other (No R/M) Gastrointestinal: normoactive bowel sounds, soft, non-tender, non-distended Integumentary: normal Extremities: no cyanosis, no edema, pulses normal, no ischemia or petechiae Neurologic: normal mental status, non-focal exam (grossly), pupils equal and round, motor strength normal and, other (weak; unsteady gait) Psychiatric: mood appropriate, affect normal CBC and BMP: 04/04/19 05:34 04/02/19 05:02 ABG, PT/INR, D-dimer: PT/INR, D-dimer PT 13.6 Sec. (12.2-14.9) 03/31/19 17:28 INR 1.07 (0.87-1.13) 03/31/19 17:28 Abnormal lab findings: Abnormal Labs 03/30/19 03/30/19 03/30/19 20:43 20:43 21:17 WBC 15.7 H RBC 5.04 H Hct 46.7 H MCHC 31 L RDW 15.4 H Plt Count Lymph % (Auto) 9.2 L Seg Neutrophils % 85.6 H Seg Neutrophils # 13.4 H Heparin Anti-Xa Level VBG pH 7.313 L Sodium 149 H Potassium 5.2 H Chloride 108.1 H Carbon Dioxide BUN 53 H Creatinine 1.8 H Glucose 774 H* POC Glucose Hemoglobin A1c Lactic Acid Calcium 10.4 H Phosphorus Magnesium Alkaline Phosphatase 137 H Total Creatine Kinase CK-MB (CK-2) CK-MB (CK-2) Rel Index Troponin T Triglycerides Cholesterol LDL Cholesterol Direct HDL Cholesterol Urine WBC (Auto) 03/30/19 03/30/19 03/30/19 21:23 21:23 22:45 WBC RBC Hct MCHC RDW Plt Count Lymph % (Auto) Seg Neutrophils % Seg Neutrophils # Heparin Anti-Xa Level VBG pH Sodium Potassium Chloride Carbon Dioxide BUN Creatinine Glucose POC Glucose Hemoglobin A1c 9.9 H Lactic Acid Calcium Phosphorus Magnesium 2.90 H Alkaline Phosphatase Total Creatine Kinase CK-MB (CK-2) 8.7 H CK-MB (CK-2) Rel Index 7.1 H Troponin T 0.087 H Triglycerides 200 H Cholesterol 254 H LDL Cholesterol Direct 168 H HDL Cholesterol 68 H Urine WBC (Auto) 03/30/19 03/30/19 03/30/19 22:45 23:00 23:31 WBC RBC Hct MCHC RDW Plt Count Lymph % (Auto) Seg Neutrophils % Seg Neutrophils # Heparin Anti-Xa Level VBG pH Sodium Potassium Chloride Carbon Dioxide BUN Creatinine Glucose POC Glucose > 500 H Hemoglobin A1c Lactic Acid Calcium Phosphorus 4.60 H Magnesium 3.00 H Alkaline Phosphatase Total Creatine Kinase CK-MB (CK-2) CK-MB (CK-2) Rel Index Troponin T Triglycerides Cholesterol LDL Cholesterol Direct HDL Cholesterol Urine WBC (Auto) 36.0 H 03/31/19 03/31/19 03/31/19 00:15 00:30 00:34 WBC RBC Hct MCHC RDW Plt Count Lymph % (Auto) Seg Neutrophils % Seg Neutrophils # Heparin Anti-Xa Level VBG pH Sodium 155 H Potassium Chloride 113.2 H Carbon Dioxide BUN 51 H Creatinine 1.6 H Glucose 528 H* POC Glucose 480 H Hemoglobin A1c Lactic Acid Calcium 10.4 H Phosphorus Magnesium Alkaline Phosphatase Total Creatine Kinase 201 H CK-MB (CK-2) 14.7 H CK-MB (CK-2) Rel Index 7.3 H Troponin T 0.157 H* D Triglycerides Cholesterol LDL Cholesterol Direct HDL Cholesterol Urine WBC (Auto) 03/31/19 03/31/19 03/31/19 01:26 02:32 03:40 WBC RBC Hct MCHC RDW Plt Count Lymph % (Auto) Seg Neutrophils % Seg Neutrophils # Heparin Anti-Xa Level VBG pH Sodium 158 H Potassium Chloride 115.8 H Carbon Dioxide BUN 49 H Creatinine 1.6 H Glucose 448 H POC Glucose 463 H 397 H Hemoglobin A1c Lactic Acid Calcium 10.7 H Phosphorus Magnesium Alkaline Phosphatase Total Creatine Kinase CK-MB (CK-2) CK-MB (CK-2) Rel Index Troponin T Triglycerides Cholesterol LDL Cholesterol Direct HDL Cholesterol Urine WBC (Auto) 03/31/19 03/31/19 03/31/19 03:51 05:16 05:47 WBC RBC Hct MCHC RDW Plt Count Lymph % (Auto) Seg Neutrophils % Seg Neutrophils # Heparin Anti-Xa Level VBG pH Sodium Potassium Chloride Carbon Dioxide BUN Creatinine Glucose POC Glucose 369 H 384 H 230 H Hemoglobin A1c Lactic Acid Calcium Phosphorus Magnesium Alkaline Phosphatase Total Creatine Kinase CK-MB (CK-2) CK-MB (CK-2) Rel Index Troponin T Triglycerides Cholesterol LDL Cholesterol Direct HDL Cholesterol Urine WBC (Auto) 03/31/19 03/31/19 03/31/19 06:20 06:20 06:29 WBC RBC Hct MCHC RDW Plt Count Lymph % (Auto) Seg Neutrophils % Seg Neutrophils # Heparin Anti-Xa Level VBG pH Sodium 158 H Potassium 3.5 L Chloride 117.5 H Carbon Dioxide BUN 47 H Creatinine 1.6 H Glucose 302 H POC Glucose 273 H Hemoglobin A1c Lactic Acid Calcium Phosphorus Magnesium Alkaline Phosphatase Total Creatine Kinase 264 H CK-MB (CK-2) 21.8 H CK-MB (CK-2) Rel Index 8.2 H Troponin T 0.284 H* D Triglycerides Cholesterol LDL Cholesterol Direct HDL Cholesterol Urine WBC (Auto) 03/31/19 03/31/19 03/31/19 06:32 06:34 07:43 WBC RBC Hct MCHC RDW Plt Count Lymph % (Auto) Seg Neutrophils % Seg Neutrophils # Heparin Anti-Xa Level VBG pH Sodium Potassium Chloride Carbon Dioxide BUN Creatinine Glucose POC Glucose 180 H 185 H 146 H Hemoglobin A1c Lactic Acid Calcium Phosphorus Magnesium Alkaline Phosphatase Total Creatine Kinase CK-MB (CK-2) CK-MB (CK-2) Rel Index Troponin T Triglycerides Cholesterol LDL Cholesterol Direct HDL Cholesterol Urine WBC (Auto) 03/31/19 03/31/19 03/31/19 08:32 09:31 10:29 WBC RBC Hct MCHC RDW Plt Count Lymph % (Auto) Seg Neutrophils % Seg Neutrophils # Heparin Anti-Xa Level VBG pH Sodium Potassium Chloride Carbon Dioxide BUN Creatinine Glucose POC Glucose 69 L 126 H 159 H Hemoglobin A1c Lactic Acid Calcium Phosphorus Magnesium Alkaline Phosphatase Total Creatine Kinase CK-MB (CK-2) CK-MB (CK-2) Rel Index Troponin T Triglycerides Cholesterol LDL Cholesterol Direct HDL Cholesterol Urine WBC (Auto) 03/31/19 03/31/19 03/31/19 11:15 12:33 13:37 WBC RBC Hct MCHC RDW Plt Count Lymph % (Auto) Seg Neutrophils % Seg Neutrophils # Heparin Anti-Xa Level VBG pH Sodium Potassium Chloride Carbon Dioxide BUN Creatinine Glucose POC Glucose 178 H 169 H 194 H Hemoglobin A1c Lactic Acid Calcium Phosphorus Magnesium Alkaline Phosphatase Total Creatine Kinase CK-MB (CK-2) CK-MB (CK-2) Rel Index Troponin T Triglycerides Cholesterol LDL Cholesterol Direct HDL Cholesterol Urine WBC (Auto) 03/31/19 03/31/19 03/31/19 14:24 14:30 15:32 WBC RBC Hct MCHC RDW Plt Count Lymph % (Auto) Seg Neutrophils % Seg Neutrophils # Heparin Anti-Xa Level VBG pH Sodium 156 H Potassium Chloride 122.9 H Carbon Dioxide 19 L BUN 41 H Creatinine Glucose 177 H POC Glucose 183 H 157 H Hemoglobin A1c Lactic Acid Calcium Phosphorus Magnesium Alkaline Phosphatase Total Creatine Kinase CK-MB (CK-2) CK-MB (CK-2) Rel Index Troponin T Triglycerides Cholesterol LDL Cholesterol Direct HDL Cholesterol Urine WBC (Auto) 03/31/19 03/31/19 03/31/19 16:32 17:28 17:30 WBC RBC Hct MCHC RDW Plt Count Lymph % (Auto) Seg Neutrophils % Seg Neutrophils # Heparin Anti-Xa Level VBG pH Sodium Potassium Chloride Carbon Dioxide BUN Creatinine Glucose POC Glucose 153 H 130 H Hemoglobin A1c Lactic Acid 2.10 H* Calcium Phosphorus Magnesium Alkaline Phosphatase Total Creatine Kinase CK-MB (CK-2) CK-MB (CK-2) Rel Index Troponin T Triglycerides Cholesterol LDL Cholesterol Direct HDL Cholesterol Urine WBC (Auto) 03/31/19 03/31/19 03/31/19 18:40 19:27 19:46 WBC RBC Hct MCHC RDW Plt Count Lymph % (Auto) Seg Neutrophils % Seg Neutrophils # Heparin Anti-Xa Level 0.13 L VBG pH Sodium Potassium Chloride Carbon Dioxide BUN Creatinine Glucose POC Glucose 116 H 119 H Hemoglobin A1c Lactic Acid Calcium Phosphorus Magnesium Alkaline Phosphatase Total Creatine Kinase CK-MB (CK-2) CK-MB (CK-2) Rel Index Troponin T Triglycerides Cholesterol LDL Cholesterol Direct HDL Cholesterol Urine WBC (Auto) 03/31/19 03/31/19 04/01/19 20:40 21:39 00:27 WBC RBC Hct MCHC RDW Plt Count Lymph % (Auto) Seg Neutrophils % Seg Neutrophils # Heparin Anti-Xa Level VBG pH Sodium Potassium Chloride Carbon Dioxide BUN Creatinine Glucose POC Glucose 135 H 147 H 47 L Hemoglobin A1c Lactic Acid Calcium Phosphorus Magnesium Alkaline Phosphatase Total Creatine Kinase CK-MB (CK-2) CK-MB (CK-2) Rel Index Troponin T Triglycerides Cholesterol LDL Cholesterol Direct HDL Cholesterol Urine WBC (Auto) 04/01/19 04/01/19 04/01/19 03:37 04:15 04:35 WBC 14.0 H RBC Hct MCHC RDW Plt Count Lymph % (Auto) Seg Neutrophils % Seg Neutrophils # Heparin Anti-Xa Level VBG pH Sodium Potassium Chloride Carbon Dioxide BUN Creatinine Glucose POC Glucose 54 L 160 H Hemoglobin A1c Lactic Acid Calcium Phosphorus Magnesium Alkaline Phosphatase Total Creatine Kinase CK-MB (CK-2) CK-MB (CK-2) Rel Index Troponin T Triglycerides Cholesterol LDL Cholesterol Direct HDL Cholesterol Urine WBC (Auto) 04/01/19 04/01/19 04/01/19 04:35 08:21 08:56 WBC RBC Hct MCHC RDW Plt Count Lymph % (Auto) Seg Neutrophils % Seg Neutrophils # Heparin Anti-Xa Level VBG pH Sodium 157 H Potassium Chloride 123.7 H Carbon Dioxide BUN 29 H Creatinine Glucose 125 H POC Glucose 161 H Hemoglobin A1c Lactic Acid Calcium Phosphorus Magnesium Alkaline Phosphatase Total Creatine Kinase CK-MB (CK-2) CK-MB (CK-2) Rel Index Troponin T 0.396 H* D Triglycerides Cholesterol LDL Cholesterol Direct HDL Cholesterol Urine WBC (Auto) 04/01/19 04/01/19 04/01/19 15:42 17:21 21:46 WBC RBC Hct MCHC RDW Plt Count Lymph % (Auto) Seg Neutrophils % Seg Neutrophils # Heparin Anti-Xa Level 0.75 H VBG pH Sodium Potassium Chloride Carbon Dioxide BUN Creatinine Glucose POC Glucose 243 H 228 H Hemoglobin A1c Lactic Acid Calcium Phosphorus Magnesium Alkaline Phosphatase Total Creatine Kinase CK-MB (CK-2) CK-MB (CK-2) Rel Index Troponin T Triglycerides Cholesterol LDL Cholesterol Direct HDL Cholesterol Urine WBC (Auto) 04/02/19 04/02/19 04/02/19 05:02 07:18 11:27 WBC RBC Hct MCHC RDW Plt Count Lymph % (Auto) Seg Neutrophils % Seg Neutrophils # Heparin Anti-Xa Level VBG pH Sodium 150 H Potassium Chloride 115.0 H Carbon Dioxide BUN 25 H Creatinine Glucose POC Glucose 66 L 178 H Hemoglobin A1c Lactic Acid Calcium Phosphorus Magnesium Alkaline Phosphatase Total Creatine Kinase CK-MB (CK-2) CK-MB (CK-2) Rel Index Troponin T Triglycerides Cholesterol LDL Cholesterol Direct HDL Cholesterol Urine WBC (Auto) 04/02/19 04/02/19 04/02/19 16:19 21:25 21:49 WBC RBC Hct MCHC RDW Plt Count Lymph % (Auto) Seg Neutrophils % Seg Neutrophils # Heparin Anti-Xa Level < 0.10 L VBG pH Sodium Potassium Chloride Carbon Dioxide BUN Creatinine Glucose POC Glucose 160 H 171 H Hemoglobin A1c Lactic Acid Calcium Phosphorus Magnesium Alkaline Phosphatase Total Creatine Kinase CK-MB (CK-2) CK-MB (CK-2) Rel Index Troponin T Triglycerides Cholesterol LDL Cholesterol Direct HDL Cholesterol Urine WBC (Auto) 04/03/19 04/03/19 04/03/19 12:26 16:13 21:48 WBC RBC Hct MCHC RDW Plt Count Lymph % (Auto) Seg Neutrophils % Seg Neutrophils # Heparin Anti-Xa Level VBG pH Sodium Potassium Chloride Carbon Dioxide BUN Creatinine Glucose POC Glucose 217 H 174 H 235 H Hemoglobin A1c Lactic Acid Calcium Phosphorus Magnesium Alkaline Phosphatase Total Creatine Kinase CK-MB (CK-2) CK-MB (CK-2) Rel Index Troponin T Triglycerides Cholesterol LDL Cholesterol Direct HDL Cholesterol Urine WBC (Auto) 04/04/19 04/04/19 04/04/19 05:34 07:17 08:51 WBC RBC Hct MCHC RDW Plt Count 138 L Lymph % (Auto) Seg Neutrophils % Seg Neutrophils # Heparin Anti-Xa Level VBG pH Sodium Potassium Chloride Carbon Dioxide BUN Creatinine Glucose POC Glucose 60 L 155 H Hemoglobin A1c Lactic Acid Calcium Phosphorus Magnesium Alkaline Phosphatase Total Creatine Kinase CK-MB (CK-2) CK-MB (CK-2) Rel Index Troponin T Triglycerides Cholesterol LDL Cholesterol Direct HDL Cholesterol Urine WBC (Auto) Allied health notes reviewed: nursing
[2019-04-04] MEDS: ASPIRIN PO SCH (09:12)
[2019-04-04] MEDS: PEPCID PO SCH (09:12)
[2019-04-04] MEDS: VITAMIN B-12 PO SCH (09:12)
[2019-04-04] MEDS: LOPRESSOR PO SCH ×2 (09:12→21:52)
[2019-04-04] MEDS: SODIUM CHLORIDE FLUSH SYRINGE 10 ML IV SCH ×2 (09:13→21:52)
[2019-04-04] MEDS: VITAMIN D3 PO SCH (09:13)
--- NOTE | 2019-04-04 10:11 | Progress Note ---
Assessment and Plan Currently stable cardiac status. Cont present cardiac management. In setting of elevated Aaron, will plan for lexiscan MPI stress test in AM to complete cardiac evaluation. NPO after MN. The patient has been seen in conjunction with Dr. Burnett who agrees with the assessment and plan of care. - Patient Problems (1) HHNC (hyperglycemic hyperosmolar nonketotic coma) Current Visit: Yes Status: Acute (2) Altered mental status Current Visit: Yes Status: Acute (3) NSTEMI (non-ST elevated myocardial infarction) Current Visit: Yes Status: Acute Plan to address problem: NSTEMI type II (4) HTN (hypertension) Current Visit: Yes Status: Chronic (5) HANK (acute kidney injury) Current Visit: Yes Status: Acute (6) UTI (urinary tract infection) Current Visit: Yes Status: Acute (7) Hypernatremia Current Visit: Yes Status: Acute (8) Hyperlipidemia Current Visit: Yes Status: Chronic (9) History of CVA (cerebrovascular accident) Current Visit: Yes Status: Chronic Subjective Date of service: 04/04/19 Principal diagnosis: DKA; Ac. encephalopathy; NSTEMI; Acute kidney injury; UTI; H/O CVA; CAD;HTN Interval history: pt resting in bed, no current complaints. Objective Last Vital Signs Temp 98.4 F 04/04/19 07:15 Pulse 63 04/04/19 09:12 Resp 18 04/04/19 08:06 BP 142/59 04/04/19 09:12 Pulse Ox 99 04/04/19 08:06 - Physical Examination General: No Apparent Distress HEENT: Positive: PERRL Neck: Positive: neck supple, trachea midline Cardiac: Positive: Reg Rate and Rhythm, S1/S2 Lungs: Positive: Decreased Breath Sounds Neuro: Positive: Grossly Intact Abdomen: Positive: Unremarkable Skin: Positive: Clear. Negative: Rash Musculoskeletal: No Pain, Normal Range of Motion Extremities: Present: normal. Absent: edema - Labs and Meds CBC 04/04/19 Range/Units 05:34 Hgb 12.3 (11.8-15.2) gm/dl Hct 35.9 (35.5-45.6) % Plt Count 138 L (140-440) K/mm3 - Imaging and Cardiology EKG: report reviewed, image reviewed Echo: report reviewed (EF 50-55%, mild to mod LVH, significant AV sclerosis, abn LV diastolic function ) - EKG Sinus rhythms and dysrhythmias: sinus rhythm - Allied health notes Allied health notes reviewed: nursing
--- NOTE | 2019-04-04 13:31 | Progress Note ---
Assessment and Plan Assessment and plan: 78-year-old man with a history of coronary artery disease, diabetes, BPH, CVA with left arm weakness is brought to the emergency room by the daughter because his he's been lethargic and complains of thirst. He has not been on any medications for 4 years, daughter state that is helped improved once he started living with her. 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 * Clinical improvement following correction of Hyperglycemia. * Patient was initially treated with Heparin gtt for Elevated Tropnin * Family reports that the patients physician had been doing diet control for management of Blood glucose, and that patient has had labs in the past with no one informing them of blood sugar issues * Patient evaluated by physical therapy recommendation for subacute rehabilitation due to severe debility. * Cardiology reevaluated the patient would like the patient to have a stress test prior to discharge considering positive troponin levels. HONK-Resolved Acute Kidney injury Secondary to vasomotor [id number] Acute cystitis-POA NSTEMI Type 2- with rising troponin-POA Hypernatremia HTN Hyperlipidemia Bradycardia DM with liabile Blood glucose, Hypoglycemia Elevated blood pressure Coronary artery disease BPH H/o CVA with left arm weakness Plan He is clinically improved today Continue beta alma current dosage Stress test in am Monitor fingersticks, serial chemistry, [id number] Possible switch to Oral glycemic agent on discahrge IV hydralazine for blood pressure control Completed treatment for UTI No clinical evidence of Sepsis Counselling DVT prophylaxis History Interval history: Patient seen and examined, had some reports of sundowning overnight but improved this morning. Still lethargic physical therapist recommended correction rehabilitation facility. Hospitalist Physical - Physical exam Narrative exam: General appearance: Present: mild distress, intermittent lethargy is noted - EENT Eyes: Present: PERRL, EOM intact ENT: hearing intact, clear oral mucosa - Neck Neck: Present: supple, normal ROM - Respiratory Respiratory effort: normal Respiratory: bilateral: CTA - Cardiovascular Rhythm: regular Heart Sounds: Present: S1 & S2. Absent: systolic murmur - Extremities Extremities: no ischemia, pulses intact, pulses symmetrical, No edema, normal temperature Peripheral Pulses: within normal limits - Abdominal General gastrointestinal: soft, non-tender, non-distended, normal bowel sounds - Integumentary Integumentary: Present: clear, warm, dry - Psychiatric Psychiatric: memory intact, cooperative, depressed - Neurologic Neurologic: CNII-XII intact, moves all extremities - Allied Health Allied health notes reviewed: nursing - Constitutional Vitals: Temp Pulse Resp BP Pulse Ox 98.4 F 63 18 142/59 99 04/04/19 07:15 04/04/19 09:12 04/04/19 08:06 04/04/19 09:12 04/04/19 08:06 General appearance: Present: mild distress, disheveled, other (awake, confused) Results - Labs CBC & Chem 7: 04/04/19 05:34 04/02/19 05:02 Labs: Laboratory Last Values WBC 10.0 K/mm3 (4.5-11.0) 04/02/19 05:02 RBC 4.47 M/mm3 (3.65-5.03) 04/02/19 05:02 Hgb 12.3 gm/dl (11.8-15.2) 04/04/19 05:34 Hct 35.9 % (35.5-45.6) 04/04/19 05:34 MCV 89 fl (84-94) 04/02/19 05:02 MCH 30 pg (28-32) 04/02/19 05:02 MCHC 33 % (32-34) 04/02/19 05:02 RDW 13.9 % (13.2-15.2) 04/02/19 05:02 Plt Count 138 K/mm3 (140-440) L 04/04/19 05:34 Lymph % (Auto) 9.2 % (13.4-35.0) L 03/30/19 20:43 [place] % (Auto) 5.1 % (0.0-7.3) 03/30/19 20:43 Eos % (Auto) 0.0 % (0.0-4.3) 03/30/19 20:43 Baso % (Auto) 0.1 % (0.0-1.8) 03/30/19 20:43 Lymph # 1.5 K/mm3 (1.2-5.4) 03/30/19 20:43 [place] # 0.8 K/mm3 (0.0-0.8) 03/30/19 20:43 Eos # 0.0 K/mm3 (0.0-0.4) 03/30/19 20:43 Baso # 0.0 K/mm3 (0.0-0.1) 03/30/19 20:43 Seg Neutrophils % 85.6 % (40.0-70.0) H 03/30/19 20:43 Seg Neutrophils # 13.4 K/mm3 (1.8-7.7) H 03/30/19 20:43 PT 13.6 Sec. (12.2-14.9) 03/31/19 17:28 INR 1.07 (0.87-1.13) 03/31/19 17:28 APTT 26.1 Sec. (24.2-36.6) 03/31/19 17:28 Heparin Anti-Xa Level < 0.10 U.I./ml (0.3-0.7) L 04/02/19 21:25 VBG pH 7.313 (7.320-7.420) L 03/30/19 21:17 Sodium 150 mmol/L (137-145) H 04/02/19 05:02 Potassium 3.9 mmol/L (3.6-5.0) 04/02/19 05:02 Chloride 115.0 mmol/L (98-107) H 04/02/19 05:02 Carbon Dioxide 25 mmol/L (22-30) 04/02/19 05:02 14 mmol/L 04/02/19 05:02 BUN 25 mg/dL (9-20) H 04/02/19 05:02 1.0 mg/dL (0.8-1.5) 04/02/19 05:02 Estimated GFR > 60 ml/min 04/02/19 05:02 25 % 04/02/19 05:02 Glucose 84 mg/dL (75-100) 04/02/19 05:02 POC Glucose 186 (70-105) H 04/04/19 12:04 9.9 % (4-6) H 03/30/19 22:45 Lactic Acid 1.80 mmol/L (0.7-2.0) 04/01/19 04:35 Calcium 9.0 mg/dL (8.4-10.2) 04/02/19 05:02 Phosphorus 4.60 mg/dL (2.5-4.5) H 03/30/19 22:45 Magnesium 3.00 mg/dL (1.7-2.3) H 03/30/19 22:45 0.30 mg/dL (0.1-1.2) 03/30/19 20:43 AST 13 units/L (5-40) 03/30/19 20:43 ALT 9 units/L (7-56) 03/30/19 20:43 137 units/L (35-129) H 03/30/19 20:43 35.0 umol/L (25-60) 03/30/19 21:23 264 units/L (55-170) H 03/31/19 06:20 CK-MB (CK-2) 21.8 ng/mL (0.0-4.0) H 03/31/19 06:20 CK-MB (CK-2) Rel Index 8.2 (0-4) H 03/31/19 06:20 0.396 ng/mL (0.00-0.029) H* D 04/01/19 08:56 0.10 mg/dL (0.00-1.30) 03/31/19 17:28 7.5 g/dL (6.3-8.2) 03/30/19 20:43 4.0 g/dL (3.9-5) 03/30/19 20:43 1.1 % 03/30/19 20:43 Triglycerides 200 mg/dL (2-149) H 03/30/19 21:23 Cholesterol 254 mg/dL (50-199) H 03/30/19 21:23 168 mg/dL (50-130) H 03/30/19 21:23 68 mg/dL (40-59) H 03/30/19 21:23 3.73 % 03/30/19 21:23 TSH 1.430 mlU/mL (0.270-4.200) 03/30/19 21:23 Free T4 1.23 ng/dL (0.76-1.46) 03/30/19 21:23 Straw (Yellow) 03/30/19 23:00 Slightly-cloudy (Clear) 03/30/19 23:00 5.0 (5.0-7.0) 03/30/19 23:00 Ur Specific [place] 1.027 (1.003-1.030) 03/30/19 23:00 <15 mg/dl mg/dL (Negative) 03/30/19 23:00 >=500 mg/dL (Negative) 03/30/19 23:00 Tr mg/dL (Negative) 03/30/19 23:00 Neg (Negative) 03/30/19 23:00 Neg (Negative) 03/30/19 23:00 Neg (Negative) 03/30/19 23:00 < 2.0 mg/dL (<2.0) 03/30/19 23:00 Ur Leukocyte Esterase Mod (Negative) 03/30/19 23:00 36.0 /HPF (0.0-6.0) H 03/30/19 23:00 5.0 /HPF (0.0-6.0) 03/30/19 23:00 U Epithel Cells (Auto) 1.0 /HPF (0-13.0) 03/30/19 23:00 Ur Yeast w Hyphae Few /HPF 03/30/19 23:00 2+ /HPF 03/30/19 23:00 Active Medications - Current Medications Current Medications: Generic Name Dose Route Start Last Admin Trade Name Freq PRN Reason Stop Dose Admin Acetaminophen 650 mg 03/30/19 23:46 Tylenol PO Q4H PRN Pain MILD(1-3)/Fever >100.5/MARTINEZ Aspirin 325 mg 04/01/19 10:00 04/04/19 09:12 Aspirin PO 325 mg QDAY SAVANNAH Administration Atorvastatin Calcium 40 mg 03/31/19 22:00 04/03/19 21:13 Lipitor PO 40 mg QHS SAVANNAH Administration Cholecalciferol 400 unit 04/01/19 10:00 04/04/19 09:13 Vitamin D3 PO 400 unit DAILY SAVANNAH Administration Cyanocobalamin 2,500 mcg 04/01/19 10:00 04/04/19 09:12 Vitamin B-12 PO 2,500 mcg QDAY SAVANNAH Administration Dextrose 0 ml 03/30/19 22:27 03/31/19 08:35 D50w (25gm) Syringe IV 15 ml ONCE PRN Administration Hypoglycemia Famotidine 20 mg 06/28/19 10:00 04/04/19 09:12 Pepcid PO 20 mg DAILY SAVANNAH Administration Hydralazine HCl 5 mg 03/30/19 23:47 Apresoline IV Q6H PRN Hypertension Insulin Glargine 12 units 04/02/19 22:00 04/03/19 21:58 Lantus SUB-Q 12 units QHS SAVANNAH Administration Insulin Human Lispro 0 unit 03/31/19 22:00 04/04/19 12:14 Humalog SUB-Q 1 unit ACHS SAVANNAH Administration Protocol Metoprolol Tartrate 25 mg 04/03/19 22:00 04/04/19 09:12 Lopressor PO 25 mg BID SAVANNAH Administration Ondansetron HCl 4 mg 03/30/19 23:46 Zofran IV Q4H PRN Nausea And Vomiting Sodium Chloride 10 ml 03/31/19 10:00 04/04/19 09:13 Sodium Chloride Flush Syringe 10 Ml IV 10 ml BID SAVANNAH Administration Sodium Chloride 10 ml 03/30/19 23:46 Sodium Chloride Flush Syringe 10 Ml IV PRN PRN LINE FLUSH Nutrition/Malnutrition Assess - Dietary Evaluation Nutrition/Malnutrition Findings: Nutrition Notes Start: 03/31/19 14:43 Freq: Status: Active Protocol: Document 04/04/19 12:23 OH (Rec: 04/04/19 12:39 OH [id number]) Nutrition Notes Initial or Follow up Brief Note Current Diagnosis Acute Kidney Injury,Coronary Artery Disease,Diabetes Other Pertinent Diagnosis Hx CVA Labs/Tests Labs reviewed Subjective/Other Information Pt. sitting up in bed. Pt. appears somewhat confused but is able to answer simple questions. Pt. reports he does see a MD to manage his health conditions. No supplementation at home. Per pt he does check bloodsugar levels at home x1 day. He has been drinking water while hospitalized. Pt. unable to comprehend DM education without family/caregiver present. Percent of energy/protein needs met: 45/45% Burn Absent Trauma Absent GI Symptoms None Current % PO Poor (25-49%) #1 Nutrition Diagnosis Inadequate oral intake Etiology CVA As Evidenced by Signs and Symptoms intake <75% of tray Diagnosis Progress(for reassessment Continues documentation) Is patient on ventilator? No Is Patient Ambulatory and/or Out of Bed No REE-([place] Jeor-confined to bed) 0 Kcal/Kg value to use for calculation 30 Calculation Used for Recommendations Kcal/kg Additional Notes [id number] kcals/d (30-35 kcals /kg) 1 mL/kcal Nutrition Intervention Change Diet Order: Cont consistent CHO Goal #1 po intake to exceed 75% Anticipated Discharge Needs: DM education Follow-Up By: 04/06/19 Additional Comments F/U po intake and DM education with present
[2019-04-04] MEDS ORDERED: LANTUS SUB-Q SCH (22:00)
[2019-04-05] MEDS ORDERED: LEXISCAN IV ONE (07:08)
[2019-04-05] MEDS: VITAMIN D3 PO SCH (10:18)
[2019-04-05] MEDS: VITAMIN B-12 PO SCH (10:18)
[2019-04-05] MEDS: ASPIRIN PO SCH (10:18)
[2019-04-05] MEDS: SODIUM CHLORIDE FLUSH SYRINGE 10 ML IV SCH (10:20)
[2019-04-05] MEDS: HumaLOG SUB-Q SCH ×2 (10:21→13:51)
--- NOTE | 2019-04-05 10:29 | Progress Note ---
Assessment and Plan Diabetic ketoacidosis. Acute toxic metabolic encephalopathy. Non-ST elevation myocardial infarction History of cerebrovascular accident without overt residual deficits. Coronary artery disease by history. Hypertension. Adult failure to thrive. Moderate protein calorie malnutrition. Leukocytosis. Hypernatremia. Acute kidney injury. Hyperkalemia. Hyperlipidemia. Urinary tract infection. 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 ?? Placement in short term Subjective Date of service: 04/05/19 Principal diagnosis: DKA; Ac. encephalopathy; NSTEMI; Acute kidney injury; UTI; H/O CVA; CAD;HTN Interval history: Patient is seen today for: DKA; Acute toxic metabolic encephalopathy; NSTEMI; H/O CVA; CAD; HTN; Adult failure to thrive; Moderate protein calorie malnutrition; Acute kidney injury; UTI Seen and examined at bedside; 24hour events reviewed; nursing and respiratory care staff consulted; no adverse overnight events reported to me; resting peacefully in bed; in room and had some questions about rehab facility; he denies chest pains or SOB; No N/V/F/C Objective Vital Signs - 12hr 04/05/19 04/05/19 04/05/19 02:01 07:21 08:22 Temperature 98.4 F 98.0 F Pulse Rate 61 62 Respiratory 14 20 Rate Blood Pressure 135/64 127/62 118/67 O2 Sat by Pulse 99 100 Oximetry 04/05/19 04/05/19 04/05/19 08:28 08:37 08:38 Temperature Pulse Rate Respiratory Rate Blood Pressure 118/65 121/62 103/51 O2 Sat by Pulse Oximetry 04/05/19 04/05/19 04/05/19 08:40 08:41 08:42 Temperature Pulse Rate Respiratory Rate Blood Pressure 107/54 108/53 110/54 O2 Sat by Pulse Oximetry 04/05/19 08:44 Temperature Pulse Rate Respiratory Rate Blood Pressure 112/50 O2 Sat by Pulse Oximetry Constitutional: no acute distress, alert, other (elderly looking thin AAM, normocephalic and atraumatic) Eyes: non-icteric ENT: oropharynx moist Neck: supple, no lymphadenopathy, no JVD Effort: normal Ascultation: Bilateral: clear, diminished breath sounds Percussion: Bilateral: not dull Cardiovascular: regular rate and rhythm, other (No R/M) Gastrointestinal: normoactive bowel sounds, soft, non-tender, non-distended Integumentary: normal Extremities: no cyanosis, no edema, pulses normal, no ischemia or petechiae Neurologic: normal mental status, non-focal exam (grossly), pupils equal and round, motor strength normal and, other (weak; unsteady gait) Psychiatric: mood appropriate, affect normal CBC and BMP: 04/04/19 05:34 04/02/19 05:02 ABG, PT/INR, D-dimer: PT/INR, D-dimer PT 13.6 Sec. (12.2-14.9) 03/31/19 17:28 INR 1.07 (0.87-1.13) 03/31/19 17:28 Abnormal lab findings: Abnormal Labs 03/30/19 03/30/19 03/30/19 20:43 20:43 21:17 WBC 15.7 H RBC 5.04 H Hct 46.7 H MCHC 31 L RDW 15.4 H Plt Count Lymph % (Auto) 9.2 L Seg Neutrophils % 85.6 H Seg Neutrophils # 13.4 H Heparin Anti-Xa Level VBG pH 7.313 L Sodium 149 H Potassium 5.2 H Chloride 108.1 H Carbon Dioxide BUN 53 H Creatinine 1.8 H Glucose 774 H* POC Glucose Hemoglobin A1c Lactic Acid Calcium 10.4 H Phosphorus Magnesium Alkaline Phosphatase 137 H Total Creatine Kinase CK-MB (CK-2) CK-MB (CK-2) Rel Index Troponin T Triglycerides Cholesterol LDL Cholesterol Direct HDL Cholesterol Urine WBC (Auto) 03/30/19 03/30/19 03/30/19 21:23 21:23 22:45 WBC RBC Hct MCHC RDW Plt Count Lymph % (Auto) Seg Neutrophils % Seg Neutrophils # Heparin Anti-Xa Level VBG pH Sodium Potassium Chloride Carbon Dioxide BUN Creatinine Glucose POC Glucose Hemoglobin A1c 9.9 H Lactic Acid Calcium Phosphorus Magnesium 2.90 H Alkaline Phosphatase Total Creatine Kinase CK-MB (CK-2) 8.7 H CK-MB (CK-2) Rel Index 7.1 H Troponin T 0.087 H Triglycerides 200 H Cholesterol 254 H LDL Cholesterol Direct 168 H HDL Cholesterol 68 H Urine WBC (Auto) 03/30/19 03/30/19 03/30/19 22:45 23:00 23:31 WBC RBC Hct MCHC RDW Plt Count Lymph % (Auto) Seg Neutrophils % Seg Neutrophils # Heparin Anti-Xa Level VBG pH Sodium Potassium Chloride Carbon Dioxide BUN Creatinine Glucose POC Glucose > 500 H Hemoglobin A1c Lactic Acid Calcium Phosphorus 4.60 H Magnesium 3.00 H Alkaline Phosphatase Total Creatine Kinase CK-MB (CK-2) CK-MB (CK-2) Rel Index Troponin T Triglycerides Cholesterol LDL Cholesterol Direct HDL Cholesterol Urine WBC (Auto) 36.0 H 03/31/19 03/31/19 03/31/19 00:15 00:30 00:34 WBC RBC Hct MCHC RDW Plt Count Lymph % (Auto) Seg Neutrophils % Seg Neutrophils # Heparin Anti-Xa Level VBG pH Sodium 155 H Potassium Chloride 113.2 H Carbon Dioxide BUN 51 H Creatinine 1.6 H Glucose 528 H* POC Glucose 480 H Hemoglobin A1c Lactic Acid Calcium 10.4 H Phosphorus Magnesium Alkaline Phosphatase Total Creatine Kinase 201 H CK-MB (CK-2) 14.7 H CK-MB (CK-2) Rel Index 7.3 H Troponin T 0.157 H* D Triglycerides Cholesterol LDL Cholesterol Direct HDL Cholesterol Urine WBC (Auto) 03/31/19 03/31/19 03/31/19 01:26 02:32 03:40 WBC RBC Hct MCHC RDW Plt Count Lymph % (Auto) Seg Neutrophils % Seg Neutrophils # Heparin Anti-Xa Level VBG pH Sodium 158 H Potassium Chloride 115.8 H Carbon Dioxide BUN 49 H Creatinine 1.6 H Glucose 448 H POC Glucose 463 H 397 H Hemoglobin A1c Lactic Acid Calcium 10.7 H Phosphorus Magnesium Alkaline Phosphatase Total Creatine Kinase CK-MB (CK-2) CK-MB (CK-2) Rel Index Troponin T Triglycerides Cholesterol LDL Cholesterol Direct HDL Cholesterol Urine WBC (Auto) 03/31/19 03/31/19 03/31/19 03:51 05:16 05:47 WBC RBC Hct MCHC RDW Plt Count Lymph % (Auto) Seg Neutrophils % Seg Neutrophils # Heparin Anti-Xa Level VBG pH Sodium Potassium Chloride Carbon Dioxide BUN Creatinine Glucose POC Glucose 369 H 384 H 230 H Hemoglobin A1c Lactic Acid Calcium Phosphorus Magnesium Alkaline Phosphatase Total Creatine Kinase CK-MB (CK-2) CK-MB (CK-2) Rel Index Troponin T Triglycerides Cholesterol LDL Cholesterol Direct HDL Cholesterol Urine WBC (Auto) 03/31/19 03/31/19 03/31/19 06:20 06:20 06:29 WBC RBC Hct MCHC RDW Plt Count Lymph % (Auto) Seg Neutrophils % Seg Neutrophils # Heparin Anti-Xa Level VBG pH Sodium 158 H Potassium 3.5 L Chloride 117.5 H Carbon Dioxide BUN 47 H Creatinine 1.6 H Glucose 302 H POC Glucose 273 H Hemoglobin A1c Lactic Acid Calcium Phosphorus Magnesium Alkaline Phosphatase Total Creatine Kinase 264 H CK-MB (CK-2) 21.8 H CK-MB (CK-2) Rel Index 8.2 H Troponin T 0.284 H* D Triglycerides Cholesterol LDL Cholesterol Direct HDL Cholesterol Urine WBC (Auto) 03/31/19 03/31/19 03/31/19 06:32 06:34 07:43 WBC RBC Hct MCHC RDW Plt Count Lymph % (Auto) Seg Neutrophils % Seg Neutrophils # Heparin Anti-Xa Level VBG pH Sodium Potassium Chloride Carbon Dioxide BUN Creatinine Glucose POC Glucose 180 H 185 H 146 H Hemoglobin A1c Lactic Acid Calcium Phosphorus Magnesium Alkaline Phosphatase Total Creatine Kinase CK-MB (CK-2) CK-MB (CK-2) Rel Index Troponin T Triglycerides Cholesterol LDL Cholesterol Direct HDL Cholesterol Urine WBC (Auto) 03/31/19 03/31/19 03/31/19 08:32 09:31 10:29 WBC RBC Hct MCHC RDW Plt Count Lymph % (Auto) Seg Neutrophils % Seg Neutrophils # Heparin Anti-Xa Level VBG pH Sodium Potassium Chloride Carbon Dioxide BUN Creatinine Glucose POC Glucose 69 L 126 H 159 H Hemoglobin A1c Lactic Acid Calcium Phosphorus Magnesium Alkaline Phosphatase Total Creatine Kinase CK-MB (CK-2) CK-MB (CK-2) Rel Index Troponin T Triglycerides Cholesterol LDL Cholesterol Direct HDL Cholesterol Urine WBC (Auto) 03/31/19 03/31/19 03/31/19 11:15 12:33 13:37 WBC RBC Hct MCHC RDW Plt Count Lymph % (Auto) Seg Neutrophils % Seg Neutrophils # Heparin Anti-Xa Level VBG pH Sodium Potassium Chloride Carbon Dioxide BUN Creatinine Glucose POC Glucose 178 H 169 H 194 H Hemoglobin A1c Lactic Acid Calcium Phosphorus Magnesium Alkaline Phosphatase Total Creatine Kinase CK-MB (CK-2) CK-MB (CK-2) Rel Index Troponin T Triglycerides Cholesterol LDL Cholesterol Direct HDL Cholesterol Urine WBC (Auto) 03/31/19 03/31/19 03/31/19 14:24 14:30 15:32 WBC RBC Hct MCHC RDW Plt Count Lymph % (Auto) Seg Neutrophils % Seg Neutrophils # Heparin Anti-Xa Level VBG pH Sodium 156 H Potassium Chloride 122.9 H Carbon Dioxide 19 L BUN 41 H Creatinine Glucose 177 H POC Glucose 183 H 157 H Hemoglobin A1c Lactic Acid Calcium Phosphorus Magnesium Alkaline Phosphatase Total Creatine Kinase CK-MB (CK-2) CK-MB (CK-2) Rel Index Troponin T Triglycerides Cholesterol LDL Cholesterol Direct HDL Cholesterol Urine WBC (Auto) 03/31/19 03/31/19 03/31/19 16:32 17:28 17:30 WBC RBC Hct MCHC RDW Plt Count Lymph % (Auto) Seg Neutrophils % Seg Neutrophils # Heparin Anti-Xa Level VBG pH Sodium Potassium Chloride Carbon Dioxide BUN Creatinine Glucose POC Glucose 153 H 130 H Hemoglobin A1c Lactic Acid 2.10 H* Calcium Phosphorus Magnesium Alkaline Phosphatase Total Creatine Kinase CK-MB (CK-2) CK-MB (CK-2) Rel Index Troponin T Triglycerides Cholesterol LDL Cholesterol Direct HDL Cholesterol Urine WBC (Auto) 03/31/19 03/31/19 03/31/19 18:40 19:27 19:46 WBC RBC Hct MCHC RDW Plt Count Lymph % (Auto) Seg Neutrophils % Seg Neutrophils # Heparin Anti-Xa Level 0.13 L VBG pH Sodium Potassium Chloride Carbon Dioxide BUN Creatinine Glucose POC Glucose 116 H 119 H Hemoglobin A1c Lactic Acid Calcium Phosphorus Magnesium Alkaline Phosphatase Total Creatine Kinase CK-MB (CK-2) CK-MB (CK-2) Rel Index Troponin T Triglycerides Cholesterol LDL Cholesterol Direct HDL Cholesterol Urine WBC (Auto) 03/31/19 03/31/19 04/01/19 20:40 21:39 00:27 WBC RBC Hct MCHC RDW Plt Count Lymph % (Auto) Seg Neutrophils % Seg Neutrophils # Heparin Anti-Xa Level VBG pH Sodium Potassium Chloride Carbon Dioxide BUN Creatinine Glucose POC Glucose 135 H 147 H 47 L Hemoglobin A1c Lactic Acid Calcium Phosphorus Magnesium Alkaline Phosphatase Total Creatine Kinase CK-MB (CK-2) CK-MB (CK-2) Rel Index Troponin T Triglycerides Cholesterol LDL Cholesterol Direct HDL Cholesterol Urine WBC (Auto) 04/01/19 04/01/19 04/01/19 03:37 04:15 04:35 WBC 14.0 H RBC Hct MCHC RDW Plt Count Lymph % (Auto) Seg Neutrophils % Seg Neutrophils # Heparin Anti-Xa Level VBG pH Sodium Potassium Chloride Carbon Dioxide BUN Creatinine Glucose POC Glucose 54 L 160 H Hemoglobin A1c Lactic Acid Calcium Phosphorus Magnesium Alkaline Phosphatase Total Creatine Kinase CK-MB (CK-2) CK-MB (CK-2) Rel Index Troponin T Triglycerides Cholesterol LDL Cholesterol Direct HDL Cholesterol Urine WBC (Auto) 04/01/19 04/01/19 04/01/19 04:35 08:21 08:56 WBC RBC Hct MCHC RDW Plt Count Lymph % (Auto) Seg Neutrophils % Seg Neutrophils # Heparin Anti-Xa Level VBG pH Sodium 157 H Potassium Chloride 123.7 H Carbon Dioxide BUN 29 H Creatinine Glucose 125 H POC Glucose 161 H Hemoglobin A1c Lactic Acid Calcium Phosphorus Magnesium Alkaline Phosphatase Total Creatine Kinase CK-MB (CK-2) CK-MB (CK-2) Rel Index Troponin T 0.396 H* D Triglycerides Cholesterol LDL Cholesterol Direct HDL Cholesterol Urine WBC (Auto) 04/01/19 04/01/19 04/01/19 15:42 17:21 21:46 WBC RBC Hct MCHC RDW Plt Count Lymph % (Auto) Seg Neutrophils % Seg Neutrophils # Heparin Anti-Xa Level 0.75 H VBG pH Sodium Potassium Chloride Carbon Dioxide BUN Creatinine Glucose POC Glucose 243 H 228 H Hemoglobin A1c Lactic Acid Calcium Phosphorus Magnesium Alkaline Phosphatase Total Creatine Kinase CK-MB (CK-2) CK-MB (CK-2) Rel Index Troponin T Triglycerides Cholesterol LDL Cholesterol Direct HDL Cholesterol Urine WBC (Auto) 04/02/19 04/02/19 04/02/19 05:02 07:18 11:27 WBC RBC Hct MCHC RDW Plt Count Lymph % (Auto) Seg Neutrophils % Seg Neutrophils # Heparin Anti-Xa Level VBG pH Sodium 150 H Potassium Chloride 115.0 H Carbon Dioxide BUN 25 H Creatinine Glucose POC Glucose 66 L 178 H Hemoglobin A1c Lactic Acid Calcium Phosphorus Magnesium Alkaline Phosphatase Total Creatine Kinase CK-MB (CK-2) CK-MB (CK-2) Rel Index Troponin T Triglycerides Cholesterol LDL Cholesterol Direct HDL Cholesterol Urine WBC (Auto) 04/02/19 04/02/19 04/02/19 16:19 21:25 21:49 WBC RBC Hct MCHC RDW Plt Count Lymph % (Auto) Seg Neutrophils % Seg Neutrophils # Heparin Anti-Xa Level < 0.10 L VBG pH Sodium Potassium Chloride Carbon Dioxide BUN Creatinine Glucose POC Glucose 160 H 171 H Hemoglobin A1c Lactic Acid Calcium Phosphorus Magnesium Alkaline Phosphatase Total Creatine Kinase CK-MB (CK-2) CK-MB (CK-2) Rel Index Troponin T Triglycerides Cholesterol LDL Cholesterol Direct HDL Cholesterol Urine WBC (Auto) 04/03/19 04/03/19 04/03/19 12:26 16:13 21:48 WBC RBC Hct MCHC RDW Plt Count Lymph % (Auto) Seg Neutrophils % Seg Neutrophils # Heparin Anti-Xa Level VBG pH Sodium Potassium Chloride Carbon Dioxide BUN Creatinine Glucose POC Glucose 217 H 174 H 235 H Hemoglobin A1c Lactic Acid Calcium Phosphorus Magnesium Alkaline Phosphatase Total Creatine Kinase CK-MB (CK-2) CK-MB (CK-2) Rel Index Troponin T Triglycerides Cholesterol LDL Cholesterol Direct HDL Cholesterol Urine WBC (Auto) 04/04/19 04/04/19 04/04/19 05:34 07:17 08:51 WBC RBC Hct MCHC RDW Plt Count 138 L Lymph % (Auto) Seg Neutrophils % Seg Neutrophils # Heparin Anti-Xa Level VBG pH Sodium Potassium Chloride Carbon Dioxide BUN Creatinine Glucose POC Glucose 60 L 155 H Hemoglobin A1c Lactic Acid Calcium Phosphorus Magnesium Alkaline Phosphatase Total Creatine Kinase CK-MB (CK-2) CK-MB (CK-2) Rel Index Troponin T Triglycerides Cholesterol LDL Cholesterol Direct HDL Cholesterol Urine WBC (Auto) 04/04/19 04/04/19 12:04 21:09 WBC RBC Hct MCHC RDW Plt Count Lymph % (Auto) Seg Neutrophils % Seg Neutrophils # Heparin Anti-Xa Level VBG pH Sodium Potassium Chloride Carbon Dioxide BUN Creatinine Glucose POC Glucose 186 H 225 H Hemoglobin A1c Lactic Acid Calcium Phosphorus Magnesium Alkaline Phosphatase Total Creatine Kinase CK-MB (CK-2) CK-MB (CK-2) Rel Index Troponin T Triglycerides Cholesterol LDL Cholesterol Direct HDL Cholesterol Urine WBC (Auto) Allied health notes reviewed: nursing
[2019-04-05] MEDS: PEPCID PO SCH (10:35)
--- NOTE | 2019-04-05 11:05 | Progress Note ---
Assessment and Plan Currently stable cardiac status. S/p lexiscan MPI stress test this AM which was negative. Nothing further to add from cardiac perspective at this time. Will sign off. Recommend follow up in our office with Dr. Dillard within 1-2 weeks of hospital discharge ([phone]). The patient has been seen in conjunction with Dr. Burnett who agrees with the assessment and plan of care. - Patient Problems (1) HHNC (hyperglycemic hyperosmolar nonketotic coma) Current Visit: Yes Status: Acute (2) Altered mental status Current Visit: Yes Status: Acute (3) NSTEMI (non-ST elevated myocardial infarction) Current Visit: Yes Status: Acute Plan to address problem: NSTEMI type II (4) HTN (hypertension) Current Visit: Yes Status: Chronic (5) HANK (acute kidney injury) Current Visit: Yes Status: Acute (6) UTI (urinary tract infection) Current Visit: Yes Status: Acute (7) Hypernatremia Current Visit: Yes Status: Acute (8) Hyperlipidemia Current Visit: Yes Status: Chronic (9) History of CVA (cerebrovascular accident) Current Visit: Yes Status: Chronic Subjective Date of service: 04/05/19 Principal diagnosis: DKA; Ac. encephalopathy; NSTEMI; Acute kidney injury; UTI; H/O CVA; CAD;HTN Interval history: pt for stress test, no current complaints. Objective Last Vital Signs Temp 98.0 F 04/05/19 07:21 Pulse 62 04/05/19 07:21 Resp 20 04/05/19 07:21 BP 112/50 04/05/19 08:44 Pulse Ox 100 04/05/19 07:21 - Physical Examination General: No Apparent Distress HEENT: Positive: PERRL Neck: Positive: neck supple, trachea midline Cardiac: Positive: Reg Rate and Rhythm, S1/S2 Lungs: Positive: Decreased Breath Sounds Neuro: Positive: Grossly Intact Abdomen: Positive: Unremarkable Skin: Positive: Clear. Negative: Rash Musculoskeletal: No Pain, Normal Range of Motion Extremities: Present: normal. Absent: edema - Imaging and Cardiology EKG: report reviewed, image reviewed Echo: report reviewed (EF 50-55%, mild to mod LVH, significant AV sclerosis, abn LV diastolic function ) - EKG Sinus rhythms and dysrhythmias: sinus rhythm - Allied health notes Allied health notes reviewed: nursing
--- NOTE | 2019-04-05 12:38 | Discharge Summary ---
Providers - Providers Date of Admission: 03/30/19 22:25 Date of discharge: 04/05/19 Attending physician: EFRAIN MUSTAFA 03/30/19 23:47 Consult to Physician [CONS] Routine Comment: Consulting Provider: MUMTAZ ALEXANDER Physician Instructions: Reason For Exam: cc 03/31/19 11:10 Consult to Physician [CONS] Routine Comment: Consulting Provider: NIKIA TINSLEY Physician Instructions: Reason For Exam: TROPONEMIA 04/01/19 15:50 Occupational Therapy Evaluate and Treat [CONS] Routine Comment: Reason For Exam: ataxia Physical Therapy Evaluation and Treat [CONS] Routine Comment: Reason For Exam: ataxia Primary care physician: SHIELD OPERATOR Hospitalization Condition: Stable Hospital course: Patient is a 78-year-old man with a history of coronary artery disease, diabetes, BPH, CVA with left arm weakness and hypertension who presented to [facility] ED due to AMS/lethargy, polyuria and polydipsia. per Chart, He has not been on any medications for 4 years, daughter states. Echo from 03/31/19 reviewed: estimated EF 50 to 55%, mild to moderate LVH, abnormal LV diastolic function, significant aortic valve sclerosis without evidence of stenosis. Clinical improvement following correction of Hyperglycemia. Patient was initially treated with Heparin gtt for Elevated Tropnin, Family reports that the patients physician had been doing diet control for management of Blood glucose. Patient evaluated by physical therapy recommendation for subacute rehabilitation due to severe debility but declined per Liv, showcase maker. Cardiology reevaluated for raising troponin and nuclear stress test done on 04/05/19 was negative for ischemia. CT HEAD without contrast showed OLD STROKE AND MODERATE ATROPHY. Discharge Diagnoses: HONK suspected-Resolved New onset of Type 2 DM Acute metabolic encephalopathy, poa Functional quadriplegia, poa Acute Kidney injury Secondary to vasomotor [id number] Acute cystitis-POA, Completed treatment for UTI NSTEMI Type 2- with rising troponin-POA Hypernatremia HTN Hyperlipidemia Bradycardia DM with liabile Blood glucose, Hypoglycemia Elevated blood pressure Coronary artery disease BPH H/o CVA with left arm weakness Disposition: DC/TX-06 HOME UNDER HOME HL Time spent for discharge: 31 minutes Core Measure Documentation - Palliative Care Palliative Care/ Comfort Measures: Not Applicable - Core Measures Any of the following diagnoses?: acute OK - VTE Discharge Requirements Deep Vein Thrombosis/Pulmonary Embolism Present on Admission: No Has pt received <5 days of overlap therapy or INR<2.0: No Anticoagulant overlap therapy prescribed at discharge: No Contraindication No Overlap Therapy order at DC: Not Indicated - Acute OK Discharge Requirements Aspirin at discharge: Yes JOSE/ARB for LVSD if EF <40%: Not Applicable Beta alma at discharge: Yes Statin for LDL = or >100 mg/dl on DC: Yes Exam - Physical Exam Narrative exam: Gen: cachetic, chronic disable appearing, bmi 18.9, NAD, Awake, Alert, Orientated x 1.5 HEENT: NCAT, EOMI, PERRL, OP Clear Neck: supple, no adenopathy, no thyromegaly, no JVD CVS/Heart: RRR, normal S1S2, pulses present bilaterally Chest/Lungs: CTA B, Symmetrical chest expansion, good air entry bilaterally GI/Abdomen: soft, NTND, good bowel sounds, no guarding or rebound /Bladder: no suprapubic tenderness, no CVA or paraspinal tenderness Extermity/Skin: no c/c/e, no obvious rash Neuro: CN 2-12 grossly intact, no new focal deficits Psych: calm - Constitutional Vitals: Temp Pulse Resp BP Pulse Ox 98.0 F 62 20 112/50 100 04/05/19 07:21 04/05/19 07:21 04/05/19 07:21 04/05/19 08:44 04/05/19 07:21 Plan Activity: other (no strenous activity unless cleared by African Studies Professor) Diet: low salt, diabetic Special Instructions: record daily BP diary, record blood sugar diary (three times a day with meals) Follow up with: NIKIA TINSLEY MD [Staff Physician] - 7 Days DARRIAN TURPIN MD [Staff Physician] - 7 Days WAN HOROWITZ MD [Staff Physician] - 7 Days Prescriptions: Insulin Glargine [Lantus VIAL] 10 units SUB-Q QHS #100 units AtorvaSTATin [Lipitor] 40 mg PO QHS #30 tablet Aspirin [Aspirin BABY CHEW TAB] 81 mg PO QDAY #30 tab.chew Lispro Insulin [HumaLOG] 1 dose SUB-Q ACHS PRN #100 units PRN Reason: Hyperglycemia Metoprolol [Lopressor TAB] 25 mg PO BID #60 tablet
[2019-04-05 13:19] VITALS: BP 139/61
[2019-04-05] MEDS: LOPRESSOR PO SCH (14:03)
--- NOTE | 2019-04-05 23:51 | Treadmill Report ---
NUCLEAR CARDIAC IMAGING REPORT INDICATION FOR PROCEDURE: Abnormal troponin. Informed consent was obtained. Vasodilator stress was achieved with the intravenous administration of 0.4 mg of Lexiscan per protocol. Nuclear cardiac imaging was performed following the intravenous administration of 10.29 and 30.57 mCi of technetium-99m Myoview respectively for rest and stress acquisitions. Imaging was performed in an 180-degree arc from 45 degrees VANN to 45 degrees LPO. After data acquisition and reconstruction, the images were processed and reoriented into the vertical long, horizontal long, and horizontal short axis slices. A polar color map of the horizontal short axis slices was generated and reviewed. The rotating planar images reviewed in cinematic format on the computer console. Gated SPECT imaging demonstrates a left ventricular ejection fraction of 62% post-stress. Left ventricular segmental wall motion is normal. Myocardial perfusion imaging demonstrates no significant cavity change between stress and rest. No significant stress-induced perfusion defects are seen. Nuclear cardiac imaging demonstrates grossly normal post-stress left ventricular systolic function with no significant evidence for myocardial ischemia or necrosis. [facility]# [id number] MAYELIN/JAYASHREE
[2019-04-06] MEDS ORDERED: BABY ASPIRIN PO SCH (10:00)
== END 2019-04-05 15:15 | disposition home health service (06) | DRG 871 ==
LOC: ED 19:49 → CC1 22:25 → 2B-ACE 04-01 14:56
PROVIDERS: ADMIT Internal Medicine; ATTEND Internal Medicine
DX: A41.9 Sepsis, unspecified organism (principal); I21.A1 Myocardial infarction type 2; N17.0 Acute kidney failure with tubular necrosis; E11.00 Type 2 diabetes mellitus with hyperosmolarity without nonketotic hyperglycemic-hyperosmolar coma (NKHHC); R53.2 Functional quadriplegia; G92 Toxic encephalopathy; E11.10 Type 2 diabetes mellitus with ketoacidosis without coma; E87.0 Hyperosmolality and hypernatremia; I69.354 Hemiplegia and hemiparesis following cerebral infarction affecting left non-dominant side; E44.0 Moderate protein-calorie malnutrition; Z68.1 Body mass index [BMI] 19.9 or less, adult; N30.00 Acute cystitis without hematuria; I25.10 Atherosclerotic heart disease of native coronary artery without angina pectoris; N40.0 Benign prostatic hyperplasia without lower urinary tract symptoms; I10 Essential (primary) hypertension; E78.5 Hyperlipidemia, unspecified; R00.1 Bradycardia, unspecified; D72.829 Elevated white blood cell count, unspecified; E87.5 Hyperkalemia; Z82.49 Family history of ischemic heart disease and other diseases of the circulatory system; Z79.899 Other long term (current) drug therapy; Z95.5 Presence of coronary angioplasty implant and graft
CPT/HCPCS: 36415; 70450; 78452; 80048; 80053; 80061; 81001; 82140; 82550; 82553; 82805; 82962; 83036; 83735; 84100; 84439; 84443; 84484; 85014; 85018; 85025; 85027; 85049; 85520; 85610; 85730; 86140; 87040; 87086; 93005; 93010; 93017; 93306; 99285; G0378; A9270-GY; A9502; J0696; J1644; J1650; J1815; J2785; J7030

== ENCOUNTER 2019-12-10 17:05 | Observation (INO) | payer MEDICARE ==
--- NOTE | 2019-12-10 17:12 | Emergency Department Report ---
ED General Adult HPI - General Chief complaint: Weakness Stated complaint: POSS STROKE Time Seen by Provider: 12/10/19 17:08 Source: patient, EMS (Verbal report received from emergency medical services. EMS documentation not available at time of chart dictation ), RN notes reviewed Mode of arrival: Stretcher Limitations: Altered Mental Status, Physical Limitation - History of Present Illness Initial comments: This is a 79-year-old gentleman. This patient is not known to myself previously. He apparently has a history of chronically elevated troponin, heart disease, diabetes, BPH, stroke with residual left-sided weakness and hypertension He is brought to the hospital by emergency medical services for possible code stroke. He has a left-sided facial droop, possibly new, and right-sided ocular movement dysfunction. Apparently, his last known well time was 4 days ago. At the moment, the patient is not accompanied by friends or family. He indicates he is not having physical pain. He cannot describe exacerbating or relieving factors. No additional information is available at this time. -: days(s) Location: face, eyes Consistency: other (Patient not able to describe consistency, exacerbating or relieving factors, or qualitative nature of his symptoms) - Related Data Previous Rx's Medication Instructions Recorded Last Taken Type Acetaminophen [Acetaminophen TAB] 650 mg PO Q4H PRN #15 tablet 04/05/19 Unknown Rx Aspirin [Aspirin BABY CHEW TAB] 81 mg PO QDAY #30 tab.chew 04/05/19 Unknown Rx AtorvaSTATin [Lipitor] 40 mg PO QHS #30 tablet 04/05/19 Unknown Rx Cholecalciferol Vit D3 [Vitamin D3 1 dose PO DAILY #30 04/05/19 Unknown Rx 400 UNIT TAB] Cyanocobalamin [Vitamin B-12] 2,500 mcg PO QDAY #30 tablet 04/05/19 Unknown Rx Famotidine [Pepcid] 20 mg PO DAILY #30 tablet 04/05/19 Unknown Rx Insulin Glargine [Lantus VIAL] 10 units SUB-Q QHS #100 units 04/05/19 Unknown Rx Lispro Insulin [HumaLOG] 1 dose SUB-Q ACHS PRN #100 units 04/05/19 Unknown Rx Metoprolol [Lopressor TAB] 25 mg PO BID #60 tablet 04/05/19 Unknown Rx Allergies Allergy/AdvReac Type Severity Reaction Status Date / Time No Known Allergies Allergy Verified 03/30/19 21:52 ED Review of Systems ROS: Stated complaint: POSS STROKE Other details as noted in HPI Comment: Unobtainable due to pts medical conditions ED Past Medical Hx - Past Medical History Hx Hypertension: No Hx CVA: Yes Hx Heart Attack/AMI: Yes (2010-stent placed) Hx Diabetes: No Hx Deep Vein Thrombosis: No Hx Pulmonary Embolism: No Hx Renal Disease: No Hx Sickle Cell Disease: No Hx Arthritis: No Hx Seizures: No Hx Kidney Stones: No Hx Asthma: No Hx COPD: No Hx Tuberculosis: No Hx Dementia: No Hx HIV: No Additional medical history: BPH - Surgical History Hx Coronary Stent: Yes (2010) Hx Open Heart Surgery: No Hx Pacemaker: No Hx Internal Defibrillator: No Hx Cholecystectomy: No Hx Appendectomy: No Hx Breast Surgery: No - Social History Smoking Status: Never Smoker - Medications Home Medications: Home Medications Medication Instructions Recorded Confirmed Last Taken Type Acetaminophen [Acetaminophen TAB] 650 mg PO Q4H PRN #15 tablet 04/05/19 Unknown Rx Aspirin [Aspirin BABY CHEW TAB] 81 mg PO QDAY #30 tab.chew 04/05/19 Unknown Rx AtorvaSTATin [Lipitor] 40 mg PO QHS #30 tablet 04/05/19 Unknown Rx Cholecalciferol Vit D3 [Vitamin D3 1 dose PO DAILY #30 04/05/19 03/30/19 Unknown Rx 400 UNIT TAB] Cyanocobalamin [Vitamin B-12] 2,500 mcg PO QDAY #30 tablet 04/05/19 Unknown Rx Famotidine [Pepcid] 20 mg PO DAILY #30 tablet 04/05/19 Unknown Rx Insulin Glargine [Lantus VIAL] 10 units SUB-Q QHS #100 units 04/05/19 Unknown Rx Lispro Insulin [HumaLOG] 1 dose SUB-Q ACHS PRN #100 units 04/05/19 Unknown Rx Metoprolol [Lopressor TAB] 25 mg PO BID #60 tablet 04/05/19 Unknown Rx ED Physical Exam - General Limitations: Altered Mental Status, Physical Limitation General appearance: anxious - Head Head exam: Present: atraumatic, normocephalic - Eye Eye exam: Present: other (Left-sided extraocular movements appear to be intact. The right eye appears to be a be ducted laterally. Patient cannot adduction past the midline. He has difficulty elevating the right eye. He is not able to complete a total EOM examination) - ENT ENT exam: Present: mucous membranes moist, other (There is a left-sided facial droop. There is left-sided forehead weakness) - Neck Neck exam: Present: normal inspection, full ROM. Absent: tenderness, meningismus - Respiratory Respiratory exam: Present: normal lung sounds bilaterally. Absent: respiratory distress - Cardiovascular Cardiovascular Exam: Present: regular rate, bradycardia, irregular rhythm, normal heart sounds. Absent: systolic murmur, diastolic murmur, rubs, gallop - GI/Abdominal GI/Abdominal exam: Present: soft, normal bowel sounds. Absent: distended, tenderness, guarding, rebound, rigid, pulsatile mass - Rectal Rectal exam: Present: deferred - Extremities Exam Extremities exam: Present: normal inspection, full ROM, other (2+ pulses noted in the bilateral upper and lower extremities. There is no palpable cord. negative Homans sign. Muscular compartments are soft. The pelvis is stable.). Absent: calf tenderness - Back Exam Back exam: Absent: tenderness, CVA tenderness (R), CVA tenderness (L), paraspinal tenderness, vertebral tenderness - Neurological Exam Neurological exam: Present: altered (The patient is alert to name. He does not know the year. He does not know the month.), motor sensory deficit (3 out of 5 strength bilateral lower extremities. 4 out of 5 strength left upper extremity. 4 out of 5 strength right upper extremity), other (There is a left-sided facial droop. Left-sided extraocular movements are intact. Right-sided extraocular movements shows abduction. The patient's tongue is midline. Sensation is intact to light touch in 4 extremities. ) - Psychiatric Psychiatric exam: Present: flat affect - Skin Skin exam: Present: warm, dry, intact, normal color. Absent: rash ED Course Vital Signs 12/10/19 12/10/19 12/10/19 17:28 17:30 17:39 Temperature 98.6 F Pulse Rate 88 87 Respiratory 16 18 16 Rate Blood Pressure 155/57 Blood Pressure 155/57 [Left] O2 Sat by Pulse 98 98 98 Oximetry 12/10/19 12/10/19 12/10/19 17:45 18:01 18:15 Temperature Pulse Rate 78 81 82 Respiratory 17 28 H 19 Rate Blood Pressure 153/59 147/53 140/56 Blood Pressure [Left] O2 Sat by Pulse 97 99 100 Oximetry 12/10/19 12/10/19 12/10/19 18:45 19:00 19:15 Temperature Pulse Rate 74 78 80 Respiratory 22 22 20 Rate Blood Pressure 135/66 149/73 149/73 Blood Pressure [Left] O2 Sat by Pulse 96 98 98 Oximetry - Reevaluation(s) Reevaluation #1: 12/10/19 18:24 Differential diagnosis, including but not limited to: Subacute stroke, multiple sclerosis, deconditioning, pneumonia, urinary tract infection Assessment and plan: 79-year-old gentleman presenting with global weakness, left-sided facial droop, right-sided extraocular movement dysfunction, last known well time was approximately 4 days ago as per EMS. He is therefore not a TPA candidate. Given more than 24 hours of symptoms, patient would not be a candidate for emergent endovascular intervention. Elevated troponin is a chronic finding. CT scan of the brain is pending. Urinalysis is pending. Reevaluation #2: 12/10/19 20:02 Dr Garcia accepts to the medical service ED Medical Decision Making - Lab Data Result diagrams: 12/10/19 17:37 12/10/19 17:37 Vital Signs 12/10/19 12/10/19 17:28 17:39 Temperature 98.6 F Pulse Rate 88 Respiratory 16 16 Rate Blood Pressure 155/57 [Left] O2 Sat by Pulse 98 98 Oximetry Lab Results 12/10/19 12/10/19 12/10/19 Range/Units 17:34 17:37 17:37 WBC 11.8 H (4.5-11.0) K/mm3 RBC 4.46 (3.65-5.03) M/mm3 Hgb 12.4 (11.8-15.2) gm/dl Hct 37.7 (35.5-45.6) % MCV 85 (84-94) fl MCH 28 (28-32) pg MCHC 33 (32-34) % RDW 15.6 H (13.2-15.2) % Plt Count 271 (140-440) K/mm3 Lymph % (Auto) 11.3 L (13.4-35.0) % [place] % (Auto) 6.1 (0.0-7.3) % Eos % (Auto) 1.8 (0.0-4.3) % Baso % (Auto) 0.6 (0.0-1.8) % Lymph # 1.3 (1.2-5.4) K/mm3 [place] # 0.7 (0.0-0.8) K/mm3 Eos # 0.2 (0.0-0.4) K/mm3 Baso # 0.1 (0.0-0.1) K/mm3 Seg Neutrophils % 80.2 H (40.0-70.0) % Seg Neutrophils # 9.5 H (1.8-7.7) K/mm3 PT 14.0 (12.2-14.9) Sec. INR 1.07 (0.87-1.13) APTT 33.3 (24.2-36.6) Sec. Thrombin Time 17.4 (15.1-19.6) Sec. Sodium (137-145) mmol/L Potassium (3.6-5.0) mmol/L Chloride (98-107) mmol/L Carbon Dioxide (22-30) mmol/L Anion Gap mmol/L BUN (9-20) mg/dL Creatinine (0.8-1.5) mg/dL Estimated GFR ml/min BUN/Creatinine Ratio % Glucose (75-100) mg/dL POC Glucose 180 H (70-105) Calcium (8.4-10.2) mg/dL Magnesium (1.7-2.3) mg/dL Total Bilirubin (0.1-1.2) mg/dL AST (5-40) units/L ALT (7-56) units/L Alkaline Phosphatase (35-129) units/L Total Creatine Kinase (55-170) units/L CK-MB (CK-2) (0.0-4.0) ng/mL CK-MB (CK-2) Rel Index (0-4) Troponin T (0.00-0.029) ng/mL Total Protein (6.3-8.2) g/dL Albumin (3.9-5) g/dL Albumin/Globulin Ratio % Salicylates (2.8-20.0) mg/dL Acetaminophen (10.0-30.0) ug/mL Plasma/Serum Alcohol (0-0.07) % 12/10/19 12/10/19 12/10/19 Range/Units 17:37 17:37 17:37 WBC (4.5-11.0) K/mm3 RBC (3.65-5.03) M/mm3 Hgb (11.8-15.2) gm/dl Hct (35.5-45.6) % MCV (84-94) fl MCH (28-32) pg MCHC (32-34) % RDW (13.2-15.2) % Plt Count (140-440) K/mm3 Lymph % (Auto) (13.4-35.0) % [place] % (Auto) (0.0-7.3) % Eos % (Auto) (0.0-4.3) % Baso % (Auto) (0.0-1.8) % Lymph # (1.2-5.4) K/mm3 [place] # (0.0-0.8) K/mm3 Eos # (0.0-0.4) K/mm3 Baso # (0.0-0.1) K/mm3 Seg Neutrophils % (40.0-70.0) % Seg Neutrophils # (1.8-7.7) K/mm3 PT (12.2-14.9) Sec. INR (0.87-1.13) APTT (24.2-36.6) Sec. Thrombin Time (15.1-19.6) Sec. Sodium (137-145) mmol/L Potassium (3.6-5.0) mmol/L Chloride (98-107) mmol/L Carbon Dioxide (22-30) mmol/L Anion Gap mmol/L BUN (9-20) mg/dL Creatinine (0.8-1.5) mg/dL Estimated GFR ml/min BUN/Creatinine Ratio % Glucose (75-100) mg/dL POC Glucose (70-105) Calcium (8.4-10.2) mg/dL Magnesium 2.00 (1.7-2.3) mg/dL Total Bilirubin (0.1-1.2) mg/dL AST (5-40) units/L ALT (7-56) units/L Alkaline Phosphatase (35-129) units/L Total Creatine Kinase 49 L (55-170) units/L CK-MB (CK-2) 1.5 (0.0-4.0) ng/mL CK-MB (CK-2) Rel Index 3.0 (0-4) Troponin T 0.139 H* (0.00-0.029) ng/mL Total Protein (6.3-8.2) g/dL Albumin (3.9-5) g/dL Albumin/Globulin Ratio % Salicylates < 0.3 L (2.8-20.0) mg/dL Acetaminophen < 5.0 L (10.0-30.0) ug/mL Plasma/Serum Alcohol (0-0.07) % 12/10/19 12/10/19 Range/Units 17:37 17:37 WBC (4.5-11.0) K/mm3 RBC (3.65-5.03) M/mm3 Hgb (11.8-15.2) gm/dl Hct (35.5-45.6) % MCV (84-94) fl MCH (28-32) pg MCHC (32-34) % RDW (13.2-15.2) % Plt Count (140-440) K/mm3 Lymph % (Auto) (13.4-35.0) % [place] % (Auto) (0.0-7.3) % Eos % (Auto) (0.0-4.3) % Baso % (Auto) (0.0-1.8) % Lymph # (1.2-5.4) K/mm3 [place] # (0.0-0.8) K/mm3 Eos # (0.0-0.4) K/mm3 Baso # (0.0-0.1) K/mm3 Seg Neutrophils % (40.0-70.0) % Seg Neutrophils # (1.8-7.7) K/mm3 PT (12.2-14.9) Sec. INR (0.87-1.13) APTT (24.2-36.6) Sec. Thrombin Time (15.1-19.6) Sec. Sodium 145 (137-145) mmol/L Potassium 3.7 (3.6-5.0) mmol/L Chloride 107.0 (98-107) mmol/L Carbon Dioxide 23 (22-30) mmol/L Anion Gap 19 mmol/L BUN 21 H (9-20) mg/dL Creatinine 1.3 (0.8-1.5) mg/dL Estimated GFR > 60 ml/min BUN/Creatinine Ratio 16 % Glucose 183 H (75-100) mg/dL POC Glucose (70-105) Calcium 9.6 (8.4-10.2) mg/dL Magnesium (1.7-2.3) mg/dL Total Bilirubin 0.80 (0.1-1.2) mg/dL AST 13 (5-40) units/L ALT 7 (7-56) units/L Alkaline Phosphatase 106 (35-129) units/L Total Creatine Kinase (55-170) units/L CK-MB (CK-2) (0.0-4.0) ng/mL CK-MB (CK-2) Rel Index (0-4) Troponin T (0.00-0.029) ng/mL Total Protein 7.3 (6.3-8.2) g/dL Albumin 3.8 L (3.9-5) g/dL Albumin/Globulin Ratio 1.1 % Salicylates (2.8-20.0) mg/dL Acetaminophen (10.0-30.0) ug/mL Plasma/Serum Alcohol < 0.01 (0-0.07) % - EKG Data -: EKG Interpreted by Ne - EKG Data 12/10/19 18:25 The EKG shows motion artifact. This appears to be sinus rhythm, with a normal axis, the QTC is prolonged, there are premature ventricular contractions and motion artifact. The EKG is abnormal. It is not a STEMI. - Radiology Data Radiology results: report reviewed, image reviewed Print Report Referring Physician: TAMMY YBARRA Patient Name: SUZETTE MCGHEE Date of : 1940 Sex: Male Report Date: 2019-12-10 Report Status: Finalized Findings [facility] [address] [place] [address] XRay Report Signed Patient: SUZETTE MCGHEE MR#: [id number] : 1940 Acct:[id number] Age/Sex: 79 / M ADM Date: 12/10/19 Loc: ED Attending Dr: Ordering Physician: TAMMY YBARRA MD Date of Service: 12/10/19 Procedure(s): XR chest 1V ap Accession Number(s): [id number] cc: TAMMY YBARRA MD Fluoro Time In Minutes: CHEST 1 VIEW 5:18 PM INDICATION / CLINICAL INFORMATION: Altered mental status and weakness. COMPARISON: None available. FINDINGS: SUPPORT DEVICES: None. HEART / MEDIASTINUM: The heart size and pulmonary vasculature are normal. LUNGS / PLEURA: There are calcified hilar lymph nodes bilaterally. There is mild left basilar atelectasis with a trace amount of left pleural effusion. No pneumothorax. ADDITIONAL FINDINGS: There are degenerative changes involving both shoulders. IMPRESSION: Minimal left pleural effusion and left basilar atelectasis. Signer Name: Fredi Staples MD Signed: 12/10/2019 5:28 PM Workstation Name: [id number] Transcribed By: RT Dictated By: Fredi Staples MD Electronically Authenticated By: Fredi Staples MD Signed Date/Time: 12/10/191727 DD/ 26 Print Report Referring Physician: TAMMY YBARRA Patient Name: SUZETTE MCGHEE Date of : 1940 Sex: Male Report Date: 2019-12-10 Report Status: Finalized Findings [facility] [address] [place] [address] Cat Scan Report Signed Patient: SUZETTE MCGHEE MR#: [id number] : 1940 Acct:[id number] Age/Sex: 79 / M ADM Date: 12/10/19 Loc: ED Attending Dr: Ordering Physician: TAMMY YBARRA MD Date of Service: 12/10/19 Procedure(s): CT head/brain wo con Accession Number(s): [id number] cc: TAMMY YBARRA MD NONENHANCED CT SCAN OF THE HEAD: INDICATION / CLINICAL INFORMATION: 79 years M walt; MAIN: Stroke symptoms RT SIDE WEAKNESS. TECHNIQUE: Routine CT head without contrast. All CT scans at this location are performed using CT dose reduction for ALARA by means of automated exposure control. COMPARISON: CT scan of the head from 03/30/2019 FINDINGS: BRAIN / INTRACRANIAL CONTENTS: No acute hemorrhage, mass effect, midline shift, hydrocephalus, or acute, large territorial infarct. As seen in the last CT scan, volume loss is seen in the cerebellar hemispheres with compensatory enlargement of fourth ventricle. Marked cortical involution and deep central involution are seen. Periventricular low attenuation areas seen due to chronic vascular disease. Chronic basal ganglia lacunae are seen. CT findings remain unchanged. Involution CRANIOCERVICAL JUNCTION: No significant abnormality. ORBITS: Suggestion of old healed fracture of the left orbital floor. SINUSES / MASTOIDS: No significant abnormality of the visualized paranasal sinuses or mastoid air cells. ADDITIONAL FINDINGS: None. IMPRESSION: CT findings remain unchanged No acute parenchymal lesion in the brain Signer Name: Mojgan Barlow MD Signed: 12/10/2019 6:46 PM Workstation Name: [id number] Transcribed By: BS Dictated By: Mojgan Cleaning MD Electronically Authenticated By: Mojgan Cleaning MD Signed Date/Time: 12/10/191845 DD/ 40 Critical care attestation.: If time is entered above; I have spent that time in minutes in the direct care of this critically ill patient, excluding procedure time. ED Disposition Clinical Impression: Facial droop, Ocular palsy of right eye, Debility Disposition: 09 OP ADMIT IP TO THIS HOSP Is pt being admited?: Yes Condition: Good
--- NOTE | 2019-12-10 17:32 | XRay Report ---
CHEST 1 VIEW 5:18 PM INDICATION / CLINICAL INFORMATION: Altered mental status and weakness. COMPARISON: None available. FINDINGS: SUPPORT DEVICES: None. HEART / MEDIASTINUM: The heart size and pulmonary vasculature are normal. LUNGS / PLEURA: There are calcified hilar lymph nodes bilaterally. There is mild left basilar atelect asis with a trace amount of left pleural effusion. No pneumothorax. ADDITIONAL FINDINGS: There are degenerative changes involving both shoulders. IMPRESSION: Minimal left pleural effusion and left basilar atelectasis. Signer Name: Fredi Staples MD Signed: 12/10/2019 5:28 PM Workstation Name: [id number]
[2019-12-10 17:53] LABS: Basophils # (Auto) 0.1 K/mm3 (0.0-0.1); Basophils % (Auto) 0.6 % (0.0-1.8); Eosinophils # (Auto) 0.2 K/mm3 (0.0-0.4); Eosinophils % (Auto) 1.8 % (0.0-4.3); Hematocrit 37.7 % (35.5-45.6); Hemoglobin 12.4 gm/dl (11.8-15.2); Lymphocytes # (Auto) 1.3 K/mm3 (1.2-5.4); Lymphocytes % (Auto) 11.3 % (13.4-35.0); Mean Corpuscular HGB Conc 33 % (32-34); Mean Corpuscular Volume 85 fl (84-94); Monocytes # (Auto) 0.7 K/mm3 (0.0-0.8); Monocytes % (Auto) 6.1 % (0.0-7.3); Platelet Count 271 K/mm3 (140-440); Red Blood Count 4.46 M/mm3 (3.65-5.03); Red Cell Distribution Width 15.6 % (13.2-15.2)
[2019-12-10 18:02] LABS: INR 1.07 (0.87-1.13)
[2019-12-10 18:03] LABS: Partial Thromboplastin Time 33.3 Sec. (24.2-36.6); Thrombin Time 17.4 Sec. (15.1-19.6)
[2019-12-10 18:11] LABS: Alanine Aminotransferase 7 units/L (7-56); Albumin 3.8 g/dL (3.9-5); BUN/Creatinine Ratio 16; Blood Urea Nitrogen 21 mg/dL (9-20); Calcium 9.6 mg/dL (8.4-10.2); Hemolysis Index 2
[2019-12-10 18:12] LABS: Creatine Kinase MB 1.5 ng/mL (0.0-4.0)
--- NOTE | 2019-12-10 18:51 | Cat Scan Report ---
NONENHANCED CT SCAN OF THE HEAD: INDICATION / CLINICAL INFORMATION: 79 years Male; MAIN: Stroke symptoms RT SIDE WEAKNESS. TECHNIQUE: Routine CT head without contrast. All CT scans at this location are performed using CT dos e reduction for ALARA by means of automated exposure control. COMPARISON: CT scan of the head from 03/30/2019 FINDINGS: BRAIN / INTRACRANIAL CONTENTS: No acute hemorrhage, mass effect, midline shift, hydrocephalus, or ac hamilton, large territorial infarct. As seen in the last CT scan, volume loss is seen in the cerebellar he mispheres with compensatory enlargement of fourth ventricle. Marked cortical involution and deep cent ral involution are seen. Periventricular low attenuation areas seen due to chronic vascular disease. Chronic basal ganglia lacunae are seen. CT findings remain unchanged. Involution CRANIOCERVICAL JUNCTION: No significant abnormality. ORBITS: Suggestion of old healed fracture of the left orbital floor. SINUSES / MASTOIDS: No significant abnormality of the visualized paranasal sinuses or mastoid air thaddeus ls. ADDITIONAL FINDINGS: None. IMPRESSION: CT findings remain unchanged No acute parenchymal lesion in the brain Signer Name: Mojgan Barlow MD Signed: 12/10/2019 6:46 PM Workstation Name: [id number]
[2019-12-10 19:01] LABS: Chol/HDL Ratio 2.72 %
[2019-12-10] MEDS ORDERED: ASPIRIN 81 MG TAB CHEW PO ONE (19:58)
--- NOTE | 2019-12-10 19:58 | History and Physical Report ---
History of Present Illness Chief complaint: He has been getting weaker and his eye looks weird History of present illness: 79 YO Male with CAD, DM, BPH, CVA with LHP presents to ED for evaluation. Patient is lethargic at the time of my evaluation and is unable to provide detailed history. Patient at the bedside during exam and interview and provides history. As per patient's the patient has experienced decreased interaction with family, increased confusion, and progressive weakness over the past 1 month with worsening symptoms over the past 1 week. Patient has decreased ambulation and is currently bed to chair. Patient also reports that patient has experienced new onset left-sided facial droop over the past 4 days with persistent symptoms over the same timeframe. EMS notified and upon ar rival the patient was found to be in distress with a neurologic deficit. A code stroke was called and the patient was subsequently transported to [facility] for further care and evaluation. Patient seen and evaluated in the emergency department. Lab and imaging studies reviewed. Patient is outside of the therapeutic window for TPA. Patient placed in observation status and admitted to telemetry and initiated on CVA protocol. Patient also found to have non- STEMI type II, as well as systemic inflammatory response syndrome. Cardiology consult placed in ED. Neurology consult placed in ED. No further history obtainable. Prior admission on 03/30/2019 reviewed. All medication listed at time of admission have been reconciled. Advanced care planning conducted in ED. Past History Past Medical History: CAD, diabetes, hyperlipidemia, stroke, other (See HPI) Past Surgical History: Other (Cardiac stent placement) Social history: , lives with family Family history: diabetes, hypertension Medications and Allergies Allergies Allergy/AdvReac Type Severity Reaction Status Date / Time No Known Allergies Allergy Verified 03/30/19 21:52 Home Medications Medication Instructions Recorded Confirmed Last Taken Type Acetaminophen [Acetaminophen TAB] 650 mg PO Q4H PRN #15 tablet 04/05/19 Unknown Rx Aspirin [Aspirin BABY CHEW TAB] 81 mg PO QDAY #30 tab.chew 04/05/19 Unknown Rx AtorvaSTATin [Lipitor] 40 mg PO QHS #30 tablet 04/05/19 Unknown Rx Cholecalciferol Vit D3 [Vitamin D3 1 dose PO DAILY #30 04/05/19 03/30/19 Unknown Rx 400 UNIT TAB] Cyanocobalamin [Vitamin B-12] 2,500 mcg PO QDAY #30 tablet 04/05/19 Unknown Rx Famotidine [Pepcid] 20 mg PO DAILY #30 tablet 04/05/19 Unknown Rx Insulin Glargine [Lantus VIAL] 10 units SUB-Q QHS #100 units 04/05/19 Unknown R x Lispro Insulin [HumaLOG] 1 dose SUB-Q ACHS PRN #100 units 04/05/19 Unknown Rx Metoprolol [Lopressor TAB] 25 mg PO BID #60 tablet 04/05/19 Unknown Rx Review of Systems ROS unobtainable: due to mental status Exam - Constitutional Vitals: Temp Pulse Resp BP Pulse Ox 98.6 F 80 20 149/73 98 12/10/19 17:28 12/10/19 19:15 12/10/19 19:15 12/10/19 19:15 12/10/19 19:15 General appearance: Present: mild distress - EENT Eyes: Present: PERRL ENT: hearing intact, clear oral mucosa - Neck Neck: Present: supple, normal ROM - Respiratory Respiratory effort: normal Respiratory: bilateral: CTA - Cardiovascular Heart Sounds: Present: S1 & S2. Absent: rub, click - Extremities Extremities: pulses symmetrical, No edema Peripheral Pulses: within normal limits - Abdominal General gastrointestinal: Present: soft, non-tender, non-distended, normal bowel sounds Male genitourinary: Present: normal - Integumentary Integumentary: Present: clear, dry, clammy - Musculoskeletal Musculoskeletal: generalized weakness - Psychiatric Psychiatric: no appropriate mood/affect, no intact judgment & insight, no memory intact - Neurologic Neurologic: CNII-XII intact, no focal deficits, moves all extremities, no gait normal Results - Labs CBC & Chem 7: 12/10/19 17:37 12/10/19 17:37 Labs: Abnormal lab results 12/10/19 12/10/19 12/10/19 Range/Units 17:34 17:37 17:37 WBC 11.8 H (4.5-11.0) K/mm3 RDW 15.6 H (13.2-15.2) % Lymph % (Auto) 11.3 L (13.4-35.0) % Seg Neutrophils % 80.2 H (40.0-70.0) % Seg Neutrophils # 9.5 H (1.8-7.7) K/mm3 BUN (9-20) mg/dL Glucose (75-100) mg/dL POC Glucose 180 H (70-105) Total Creatine Kinase 49 L (55-170) units/L Troponin T 0.139 H* (0.00-0.029) ng/mL Albumin (3.9-5) g/dL Salicylates (2.8-20.0) mg/dL Acetaminophen (10.0-30.0) ug/mL 12/10/19 12/10/19 12/10/19 Range/Units 17:37 17:37 17:37 WBC (4.5-11.0) K/mm3 RDW (13.2-15.2) % Lymph % (Auto) (13.4-35.0) % Seg Neutrophils % (40.0-70.0) % Seg Neutrophils # (1.8-7.7) K/mm3 BUN 21 H (9-20) mg/dL Glucose 183 H (75-100) mg/dL POC Glucose (70-105) Total Creatine Kinase (55-170) units/L Troponin T (0.00-0.029) ng/mL Albumin 3.8 L (3.9-5) g/dL Salicylates < 0.3 L (2.8-20.0) mg/dL Acetaminophen < 5.0 L (10.0-30.0) ug/mL Assessment and Plan - Patient Problems (1) CVA (cerebral vascular accident) Current Visit: Yes Status: Acute Qualifiers: Laterality of affected vessel: unspecified Plan to address problem: Stroke protocol: CT head, carotid Doppler, echo, antiplatelet therapy, physical therapy, Occupational Therapy, speech therapy consult, neuro check, lipid panel, neurology consulted in ED. (2) NSTEMI (non-ST elevated myocardial infarction) Current Visit: No Status: Acute Plan to address problem: Type II non-ST elevation MS, serial cardiac enzymes, echocardiogram, cardiology consult placed in ED. (3) HTN (hypertension) Current Visit: No Status: Chronic Qualifiers: Hypertension type: essential hypertension Qualified Code(s): I10 - Essential (primary) hypertension Plan to address problem: Monitor blood pressure every shift, continue medical management, permissive hypertension overnight. (4) Hyperlipidemia Current Visit: No Status: Chronic Qualifiers: Hyperlipidemia type: mixed hyperlipidemia Qualified Code(s): E78.2 - Mixed hyperlipidemia Plan to address problem: Lipid panel, statin therapy, balanced diet, supportive care. (5) Advance care planning Current Visit: Yes Status: Acute Plan to address problem: Advanced care planning conducted in ED, patient is full code, patient care plan discussed with . Who is at bedside during exam and interview. Patient acknowledges understanding and agreement with care plan. +30 minutes.
[2019-12-10] MEDS ORDERED: ONDANSETRON 4 MG/2 ML INJ IV PRN (20:29)
[2019-12-10] MEDS ORDERED: PROMETHAZINE 25 MG RECT SUPP PR PRN (20:29)
[2019-12-10] MEDS ORDERED: METOCLOPRAMIDE 10 MG TAB PO PRN (20:29)
[2019-12-10] MEDS ORDERED: ACETAMINOPHEN 325 MG TAB PO PRN ×2 (20:29→20:31)
[2019-12-10] MEDS ORDERED: MAGNESIUM HYDROXIDE (MOM) ORAL LIQD UDC PO PRN (20:29)
[2019-12-10] MEDS ORDERED: DEXTROSE 50% IN WATER (25GM) 50 ML SYRINGE IV PRN (20:32)
[2019-12-10] MEDS ORDERED: cefTRIAXone/NS 1 GM/50 ML 1 GM/50 ML BAG IV ONE (21:00)
[2019-12-10] MEDS ORDERED: ASPIRIN 325 MG TAB ONE (21:32)
[2019-12-10] MEDS: ASPIRIN 325 MG TAB PO SCH (21:33)
[2019-12-10] MEDS: INSULIN LISPRO 100 UNIT/ML SUB-Q SCH (23:46)
[2019-12-11] MEDS: METOPROLOL TARTRATE 25 MG TAB PO SCH ×4 (00:56→21:50)
[2019-12-11] MEDS: INSULIN LISPRO 100 UNIT/ML SUB-Q SCH ×4 (08:00→21:12)
--- NOTE | 2019-12-11 09:34 | Progress Note ---
Subjective Date of service: 12/11/19 Interval history: exam shows profound bilateral m weakness of the left / Right sides PMH old strokes the CT today shows large white matter/ corical infarcts all ischemic no bleed noted rec w/u include MRIU suspect memory loss is an issue as well diabtes underluying cause. Objective - Vital Sign Vital Signs - 12hr 12/10/19 12/10/19 12/10/19 20:41 20:51 21:00 Temperature Pulse Rate 79 76 74 Respiratory 19 23 20 Rate Blood Pressure 159/74 137/75 151/70 Blood Pressure [Left] O2 Sat by Pulse Oximetry 12/10/19 12/10/19 12/10/19 21:11 21:21 21:30 Temperature Pulse Rate 76 69 76 Respiratory 18 20 22 Rate Blood Pressure 151/70 154/50 157/76 Blood Pressure [Left] O2 Sat by Pulse Oximetry 12/10/19 12/10/19 12/10/19 21:35 21:41 21:51 Temperature Pulse Rate 81 76 78 Respiratory 14 18 18 Rate Blood Pressure 148/65 154/50 Blood Pressure 148/65 [Left] O2 Sat by Pulse 100 100 99 Oximetry 12/10/19 12/10/19 12/10/19 22:00 22:10 22:55 Temperature 97.8 F Pulse Rate 74 77 40 L Respiratory 20 20 18 Rate Blood Pressure 148/65 144/52 Blood Pressure [Left] O2 Sat by Pulse 99 100 98 Oximetry 12/10/19 12/11/19 12/11/19 23:00 00:56 03:58 Temperature 97.4 F L Pulse Rate 77 77 69 Respiratory 18 Rate Blood Pressure 142/52 152/79 Blood Pressure [Left] O2 Sat by Pulse 100 Oximetry 12/11/19 12/11/19 12/11/19 06:21 07:58 08:47 Temperature 98.4 F Pulse Rate 69 69 Respiratory 18 Rate Blood Pressure 147/72 Blood Pressure [Left] O2 Sat by Pulse 99 94 Oximetry - Laboratory Findings CBC and BMP: 12/10/19 17:37 12/10/19 17:37 Abnormal Lab Findings: Abnormal Labs 12/10/19 12/10/19 12/10/19 17:34 17:37 17:37 WBC 11.8 H RDW 15.6 H Lymph % (Auto) 11.3 L Seg Neutrophils % 80.2 H Seg Neutrophils # 9.5 H D-Dimer BUN Glucose POC Glucose 180 H Total Creatine Kinase 49 L Troponin T 0.139 H* Albumin Salicylates Acetaminophen 12/10/19 12/10/19 12/10/19 17:37 17:37 17:37 WBC RDW Lymph % (Auto) Seg Neutrophils % Seg Neutrophils # D-Dimer BUN 21 H Glucose 183 H POC Glucose Total Creatine Kinase Troponin T Albumin 3.8 L Salicylates < 0.3 L Acetaminophen < 5.0 L 12/10/19 12/11/19 12/11/19 17:37 00:22 01:13 WBC RDW Lymph % (Auto) Seg Neutrophils % Seg Neutrophils # D-Dimer 537.13 H BUN Glucose POC Glucose 150 H Total Creatine Kinase Troponin T 0.115 H* Albumin Salicylates Acetaminophen 12/11/19 07:21 WBC RDW Lymph % (Auto) Seg Neutrophils % Seg Neutrophils # D-Dimer BUN Glucose POC Glucose Total Creatine Kinase Troponin T 0.088 H D Albumin Salicylates Acetaminophen
[2019-12-11] MEDS ORDERED: ASPIRIN 81 MG TAB CHEW PO SCH (10:00)
--- NOTE | 2019-12-11 10:50 | Progress Note ---
Assessment and Plan Assessment and plan: (1) CVA (cerebral vascular accident) CT head no acute intracranial findings Carotid Doppler and echo pending On aspirin and statin lipid panel LDL 80 physical therapy, Occupational Therapy, speech therapy consulted Dr Mon consulted (2) NSTEMI (non-ST elevated myocardial infarction) Type II non-ST elevation ID, serial cardiac enzymes, echocardiogram, cardiology consult placed in ED. (3) HTN (hypertension) Monitor blood pressure every shift, continue medical management, permissive hypertension (4) Hyperlipidemia continue statin Disposition; continue in patient care. History Interval history: Patient was seen and evaluated this morning, Patient was alert but oriented only to self. He said he don't know why he is here. Hospitalist Physical - Physical exam Narrative exam: Not in cardiopulmonary distress. The patient appeared well nourished and normally developed. Vital signs as documented. Head exam is unremarkable. No scleral icterus . Neck is without jugular venous distension, thyromegaly, or carotid bruits. Lungs are clear to auscultation. Cardiac exam reveals regular rate and Rhythm. Abdominal exam reveals normal bowel sounds, nontender, no organomegaly. Extremities are nonedematous and both femoral and pedal pulses are normal. DEWAXER: Alert and oriented only to self. left facial droop. - Constitutional Vitals: Temp Pulse Resp BP Pulse Ox 98.4 F 69 18 147/72 94 12/11/19 07:58 12/11/19 07:58 12/11/19 07:58 12/11/19 07:58 12/11/19 08:47 General appearance: Present: mild distress Results - Labs CBC & Chem 7: 12/10/19 17:37 12/10/19 17:37 Labs: Laboratory Last Values WBC 11.8 K/mm3 (4.5-11.0) H 12/10/19 17:37 RBC 4.46 M/mm3 (3.65-5.03) 12/10/19 17:37 Hgb 12.4 gm/dl (11.8-15.2) 12/10/19 17:37 Hct 37.7 % (35.5-45.6) 12/10/19 17:37 MCV 85 fl (84-94) 12/10/19 17:37 MCH 28 pg (28-32) 12/10/19 17:37 MCHC 33 % (32-34) 12/10/19 17:37 RDW 15.6 % (13.2-15.2) H 12/10/19 17:37 Plt Count 271 K/mm3 (140-440) 12/10/19 17:37 Lymph % (Auto) 11.3 % (13.4-35.0) L 12/10/19 17:37 Bucks % (Auto) 6.1 % (0.0-7.3) 12/10/19 17:37 Eos % (Auto) 1.8 % (0.0-4.3) 12/10/19 17:37 Baso % (Auto) 0.6 % (0.0-1.8) 12/10/19 17:37 Lymph # 1.3 K/mm3 (1.2-5.4) 12/10/19 17:37 Bucks # 0.7 K/mm3 (0.0-0.8) 12/10/19 17:37 Eos # 0.2 K/mm3 (0.0-0.4) 12/10/19 17:37 Baso # 0.1 K/mm3 (0.0-0.1) 12/10/19 17:37 Seg Neutrophils % 80.2 % (40.0-70.0) H 12/10/19 17:37 Seg Neutrophils # 9.5 K/mm3 (1.8-7.7) H 12/10/19 17:37 PT 14.0 Sec. (12.2-14.9) 12/10/19 17:37 INR 1.07 (0.87-1.13) 12/10/19 17:37 APTT 33.3 Sec. (24.2-36.6) 12/10/19 17:37 Thrombin Time 17.4 Sec. (15.1-19.6) 12/10/19 17:37 D-Dimer 537.13 ng/mlDDU (0-234) H 12/10/19 17:37 Sodium 145 mmol/L (137-145) 12/10/19 17:37 Potassium 3.7 mmol/L (3.6-5.0) 12/10/19 17:37 Chloride 107.0 mmol/L (98-107) 12/10/19 17:37 Carbon Dioxide 23 mmol/L (22-30) 12/10/19 17:37 Anion Gap 19 mmol/L 12/10/19 17:37 BUN 21 mg/dL (9-20) H 12/10/19 17:37 Creatinine 1.3 mg/dL (0.8-1.5) 12/10/19 17:37 Estimated GFR > 60 ml/min 12/10/19 17:37 BUN/Creatinine Ratio 16 % 12/10/19 17:37 Glucose 183 mg/dL (75-100) H 12/10/19 17:37 POC Glucose 150 (70-105) H 12/11/19 01:13 Calcium 9.6 mg/dL (8.4-10.2) 12/10/19 17:37 Magnesium 2.00 mg/dL (1.7-2.3) 12/10/19 17:37 Total Bilirubin 0.80 mg/dL (0.1-1.2) 12/10/19 17:37 AST 13 units/L (5-40) 12/10/19 17:37 ALT 7 units/L (7-56) 12/10/19 17:37 Alkaline Phosphatase 106 units/L (35-129) 12/10/19 17:37 Total Creatine Kinase 49 units/L (55-170) L 12/10/19 17:37 CK-MB (CK-2) 1.5 ng/mL (0.0-4.0) 12/10/19 17:37 CK-MB (CK-2) Rel Index 3.0 (0-4) 12/10/19 17:37 Troponin T 0.088 ng/mL (0.00-0.029) H D 12/11/19 07:21 Total Protein 7.3 g/dL (6.3-8.2) 12/10/19 17:37 Albumin 3.8 g/dL (3.9-5) L 12/10/19 17:37 Albumin/Globulin Ratio 1.1 % 12/10/19 17:37 Triglycerides 95 mg/dL (2-149) 12/10/19 17:37 Cholesterol 150 mg/dL (50-199) 12/10/19 17:37 LDL Cholesterol Direct 80 mg/dL (50-130) 12/10/19 17:37 HDL Cholesterol 55 mg/dL (40-59) 12/10/19 17:37 Cholesterol/HDL Ratio 2.72 % 12/10/19 17:37 TSH 1.710 mlU/mL (0.270-4.200) 12/10/19 17:37 Salicylates < 0.3 mg/dL (2.8-20.0) L 12/10/19 17:37 Acetaminophen < 5.0 ug/mL (10.0-30.0) L 12/10/19 17:37 Plasma/Serum Alcohol < 0.01 % (0-0.07) 12/10/19 17:37 Active Medications - Current Medications Current Medications: Generic Name Dose Route Start Last Admin Trade Name Freq PRN Reason Stop Dose Admin Acetaminophen 650 mg 12/10/19 20:31 Tylenol PO Q4H PRN Pain MILD(1-3)/Fever >100.5/MARTINEZ Aspirin 325 mg 12/11/19 10:00 12/10/19 21:33 Aspirin PO 325 mg QDAY SAVANNAH Administration Atorvastatin Calcium 40 mg 12/10/19 22:00 12/11/19 00:56 Lipitor PO 40 mg QHS [facility] Administration Bisacodyl 10 mg 12/10/19 20:29 Dulcolax LA QDAY PRN Constipation Cholecalciferol 400 unit 12/11/19 10:00 Vitamin D3 PO DAILY [facility] Cyanocobalamin 2,500 mcg 12/11/19 10:00 Vitamin B-12 PO QDAY [facility] Dextrose 0 ml 12/10/19 20:32 D50w (25gm) Syringe IV Q30MIN PRN Hypoglycemia Protocol Famotidine 20 mg 12/11/19 10:00 Pepcid PO DAILY [facility] Insulin Human Lispro 0 unit 12/10/19 22:00 12/10/19 23:46 Humalog SUB-Q Not Given ACHS [facility] Protocol Magnesium Hydroxide 30 ml 12/10/19 20:29 Milk Of Magnesia PO Q4H PRN Constipation Metoclopramide HCl 10 mg 12/10/19 20:29 12/11/19 00:56 Reglan PO 10 mg Q6H PRN Administration Nausea And Vomiting Metoprolol Tartrate 25 mg 12/10/19 22:00 12/11/19 00:56 Metoprolol PO 25 mg BID SAVANNAH Administration Ondansetron HCl 4 mg 12/10/19 20:29 Zofran IV Q8H PRN Nausea And Vomiting Promethazine HCl 25 mg 12/10/19 20:29 Phenergan LA Q6H PRN Nausea And Vomiting Sodium Chloride 10 ml 12/10/19 20:29 12/11/19 00:58 Sodium Chloride Flush Syringe 10 Ml IV 10 ml PRN PRN Administration LINE FLUSH Sodium Chloride 10 ml 12/10/19 20:42 Sodium Chloride Flush Syringe 10 Ml IV PRN PRN LINE FLUSH
--- NOTE | 2019-12-11 13:52 | Consultation ---
HISTORY OF PRESENT ILLNESS: This 79-year-old black male who presented to the Emergency Room of [facility] accompanied by family. There is a long and complicated history of multiple MIs, CHF, diabetes and multiple strokes. On presentation to the Emergency Room, he was noted by family members to not be speaking as well as normal. He has a chronic left-sided weakness related to previous strokes. On my obtaining history from the patient, he was confused, very disoriented. His history is entirely unreliable. PHYSICAL EXAMINATION: On examination, he does have a fixed weakness of the left arm. He has an expressive aphasia. Gaze is to the left. He has weakness of his right upper extremity and right face. The patient is fully alert. He has a supple neck. He is oriented x 3, able to follow only simple commands. I do not notice any seizure activity. The patient does not have any evidence of any contusions, abrasions or lacerations, about the head, face or neck. NEUROLOGICAL: Is limited by his lack of ability to concentrate, focus and provide any detailed history. IMPRESSION: This patient has an acute stroke of the left cerebral hemisphere superimposed on chronic strokes, diabetes, also noticed that he has a great deal of intrinsic muscle weakness, possibly related to age and/or diabetic neuropathy. He has obviously been in a chronic state of poor health and progressive neurological decline. MRI scan is being anticipated. We will review his old records, which is separately. JOB# [id number] JOHNNA/JAYASHREE
[2019-12-11] MEDS: FAMOTIDINE 20 MG TAB PO SCH (14:00)
[2019-12-11] MEDS: ASPIRIN 325 MG TAB PO SCH (14:00)
[2019-12-11] MEDS: CYANOCOBALAMIN (VIT B-12) 1000 MCG TAB PO SCH (18:12)
[2019-12-11] MEDS: CHOLECALCIFEROL (VIT D3) 400 UNIT TAB PO SCH (18:12)
[2019-12-11] MEDS: ENOXAPARIN 40 MG/0.4 ML INJ SUB-Q SCH (21:15)
[2019-12-12] MEDS: INSULIN LISPRO 100 UNIT/ML SUB-Q SCH ×4 (08:00→21:36)
[2019-12-12] MEDS: ASPIRIN 325 MG TAB PO SCH (11:09)
[2019-12-12] MEDS: FAMOTIDINE 20 MG TAB PO SCH (11:09)
[2019-12-12] MEDS: CYANOCOBALAMIN (VIT B-12) 1000 MCG TAB PO SCH (11:09)
[2019-12-12] MEDS: METOPROLOL TARTRATE 25 MG TAB PO SCH ×2 (11:09→21:37)
[2019-12-12] MEDS: CHOLECALCIFEROL (VIT D3) 400 UNIT TAB PO SCH (11:46)
--- NOTE | 2019-12-12 15:00 | Magnetic Resonance Report ---
MRI BRAIN 12/12/2019 INDICATION / CLINICAL INFORMATION: MAIN: possible cva, confusion,difficulty walking. TECHNIQUE: Multiplanar, multisequence MR images of the brain were obtained. COMPARISON: CT brain 12/10/2019 FINDINGS: BRAIN / INTRACRANIAL CONTENTS: Unenhanced MR images of the brain were obtained. Patient motion artifact is present on many of these images. Ventricles and sulci are prominent in size, consistent with pronounced diffuse cerebral atrophy. There is no evidence of acute ischemic injury, hemorrhage, or mass. There are no abnormal extra-axial fluid collections. EXTRACRANIAL: Unremarkable CRANIOCERVICAL JUNCTION: No significant abnormality. VASCULAR FLOW-VOIDS: No significant abnormality. IMPRESSION: No acute abnormality. Chronic and age-related changes. Signer Name: Vernon Rankin MD Signed: 12/12/2019 2:56 PM Workstation Name: [id number]
--- NOTE | 2019-12-12 15:07 | Discharge Summary ---
Providers - Providers Date of Admission: 12/10/19 20:29 Date of discharge: 12/12/19 Attending physician: SAHIL GROVE 12/10/19 Consult to Cardiac Rehabilitation [CONS] Routine Reason For Exam: Phase I 12/10/19 20:29 Occupational Therapy Evaluate and Treat [CONS] Routine Comment: Reason For Exam: Neuro deficits Physical Therapy Evaluation and Treat [CONS] Routine Comment: Reason For Exam: Neuro deficits 12/10/19 21:05 Consult to Physician [CONS] Routine Comment: Consulting Provider: ZENA MON Physician Instructions: Reason For Exam: cva 12/12/19 13:10 Consult to Physician [CONS] Routine Comment: Consulting Provider: NIKIA TINSLEY Physician Instructions: Reason For Exam: elevated troponin Primary care physician: [employer] Hospitalization Condition: Good Hospital course: Discharge diagnosis: (1) CVA (cerebral vascular accident) - ruled out, likely TIA CT head no acute intracranial findings, MRI brain with chronic changes Carotid Doppler and echo ordered On aspirin and statin lipid panel LDL 80 physical therapy, Occupational Therapy, speech therapy consulted Dr Mon consulted (2) NSTEMI (non-ST elevated myocardial infarction), chronic Type II non-ST elevation MD, preserved Ef on echocardiogram, stress test 04/22 was normal, outpt f/u with cardiology (3) HTN (hypertension) Monitor blood pressure every shift, continue medical management, permissive hypertension (4) Hyperlipidemia continue statin Disposition; continue in patient care. Disposition: DC/[place]-06 HOME [facility] Time spent for discharge: 34 minutes Core Measure Documentation - Palliative Care Palliative Care/ Comfort Measures: Not Applicable - Core Measures Any of the following diagnoses?: none Exam - Constitutional Vitals: Temp Pulse Resp BP Pulse Ox 98.0 F 74 18 136/58 98 12/12/19 07:48 12/12/19 11:09 12/12/19 08:00 12/12/19 11:09 12/12/19 08:00 Plan Activity: fall precautions Weight Bearing Status: Non-Weight Bearing Diet: low fat, low salt Special Instructions: physical therapy Follow up with: PRIMARY CARE, [Primary Care Provider] - 3-5 Days
--- NOTE | 2019-12-12 18:59 | Vascular Lab Report ---
VL carotid duplex BILAT INDICATION / CLINICAL INFORMATION: stroke. COMPARISON: None available. FINDINGS: Mild to moderate plaque formation is demonstrated at both bifurcations, more prominent on the left. V elocity measurements and waveform analysis, however, indicate less than 50% stenosis of each internal carotid artery, according to Nascet criteria. Normal antegrade flow is demonstrated in both vertebral arteries. IMPRESSION: 1. No significant stenosis. Signer Name: Judson Smith MD Signed: 12/12/2019 6:55 PM Workstation Name: [id number]
[2019-12-12] MEDS: ENOXAPARIN 40 MG/0.4 ML INJ SUB-Q SCH (21:36)
[2019-12-13] MEDS: INSULIN LISPRO 100 UNIT/ML SUB-Q SCH ×2 (07:30→12:32)
[2019-12-13] MEDS: ASPIRIN 325 MG TAB PO SCH (10:14)
[2019-12-13] MEDS: FAMOTIDINE 20 MG TAB PO SCH (10:14)
[2019-12-13] MEDS: CYANOCOBALAMIN (VIT B-12) 1000 MCG TAB PO SCH (10:14)
[2019-12-13] MEDS: METOPROLOL TARTRATE 25 MG TAB PO SCH (10:14)
[2019-12-13] MEDS: CHOLECALCIFEROL (VIT D3) 400 UNIT TAB PO SCH (10:14)
[2019-12-13 12:44] VITALS: BP 139/73
--- NOTE | 2019-12-13 14:01 | Event Note ---
Date: 12/13/19 Patient is being discharge today.
== END 2019-12-13 14:07 | disposition home health service (06) ==
LOC: ED 17:05 → 4A 20:29
PROVIDERS: ADMIT Internal Medicine; ATTEND Internal Medicine
DX: I63.9 Cerebral infarction, unspecified (principal); I21.4 Non-ST elevation (NSTEMI) myocardial infarction; I10 Essential (primary) hypertension; E78.2 Mixed hyperlipidemia; I25.10 Atherosclerotic heart disease of native coronary artery without angina pectoris; E11.9 Type 2 diabetes mellitus without complications; N40.0 Benign prostatic hyperplasia without lower urinary tract symptoms; Z95.5 Presence of coronary angioplasty implant and graft; Z79.82 Long term (current) use of aspirin; Z79.4 Long term (current) use of insulin; Z79.899 Other long term (current) drug therapy
CPT/HCPCS: 36415; 70450; 70551; 71045; 80053; 80061; 82550; 82553; 82962; 83735; 84443; 84484; 85025; 85379; 85610; 85670; 85730; 93005; 93010; 93306; 93880; 96365; 96372; 97161; 97530; 97535; 99285; A9270; G0378; J0696; J1650; 80320; 96374; G0480; J1815